=== PATIENT | male | born 1950 | race Caucasian/White ===

== ENCOUNTER 2023-09-15 08:01 | Outpatient (CLI) | payer MEDICARE, OTHER, SELFPAY ==
--- NOTE | ~2023-09-15 | XR_ITS ---
EXAMINATION: XR shoulder RT min 2V DATE: 09/15/2023 08:30 INDICATION: Right shoulder pain and inability to lift the right arm post fall TECHNIQUE: AP internally and externally rotated, AP oblique externally rotated and transscapular Y vi ews of the right shoulder were obtained. COMPARISON: None FINDINGS: Normal alignment. No fracture.Mild glenohumeral osteoarthritis with relatively preserved joint space but small marginal osteophytes about the glenoid. There is also mild acromioclavicular osteoarthriti s. Soft tissues are unremarkable. Visualized portion of the lungs are clear. IMPRESSION: Mild right glenohumeral and acromioclavicular osteoarthritis. No acute osseous abnormality. Reviewed, dictated and finalized at location A. ESSOR OF FINANCE
== END 2023-09-15 08:02 | disposition home or self-care (01) ==
PROVIDERS: PCP Family Medicine; Visit Provider Physician Assistant
DX: S49.91XA Unspecified injury of right shoulder and upper arm, initial encounter (principal); X58.XXXA Exposure to other specified factors, initial encounter
CPT/HCPCS: 73030

== ENCOUNTER 2024-04-11 14:57 | Outpatient (CLI) | payer MEDICARE, OTHER, SELFPAY ==
--- NOTE | ~2024-04-11 | US_ITS ---
EXAMINATION: US venous doppler [facility] DATE: 04/11/2024 15:57 INDICATION: Lower limb swelling. TECHNIQUE: Grayscale ultrasound images without and with compression and Doppler ultrasound images of the bilateral lower extremity veins were obtained. COMPARISON: None. FINDINGS: There is nonocclusive noncompressible thrombus in the left greater saphenous vein outflow as well as the profunda (deep) femoral vein. The visualized portions of left common femoral vein, femoral vein, popliteal vein, posterior tibial veins, peroneal veins, gastrocnemius vein and more distal mid greate r saphenous vein vein outflow are patent. Sluggish flow was seen in the left popliteal and gastrocnem ius veins on the cine grayscale Doppler imaging. The visualized portions of right common femoral vein, profunda femoral vein, femoral vein, popliteal vein, posterior tibial veins, peroneal veins, gastrocnemius vein and greater saphenous vein outflow a re patent. IMPRESSION: 1. Nonocclusive thrombosis of the left greater saphenous vein outflow end of the left profunda (deep ) femoral vein. Reviewed, dictated and finalized at location A. IMPRESSION: 1. Nonocclusive thrombosis of the left greater saphenous vein outflow end of t he left profunda (deep) femoral vein.
== END 2024-04-11 14:58 | disposition home or self-care (01) ==
LOC: ANHIMG 14:59
PROVIDERS: PCP Family Medicine; Visit Provider Physician Assistant
DX: R60.0 Localized edema (principal); I82.812 Embolism and thrombosis of superficial veins of left lower extremity
CPT/HCPCS: 93970

== ENCOUNTER 2024-05-21 11:26 | Emergency (ER) | payer MEDICARE, OTHER, SELFPAY ==
[2024-05-21 12:05] VITALS: BP 136/74; PULSE 98; RESP 16; TEMP 36.6; O2SAT 98
--- NOTE | 2024-05-21 12:11 | ED.EAR ---
HPI - Ear Problem General Chief complaint: Ear Stated complaint: Ear Pain Time Seen by Provider: 05/21/24 12:11 Source: patient Mode of arrival: ambulatory Limitations: no limitations History of Present Illness HPI Narrative: 74 yo M presents with c/o throbbing pain to L ear. Was seen at PCP office 4 days ago and L ear was clogged. Was irrigated but unable to remove drainage. thought was swimmers ear. Has been using cipro dex and ofloxacin drops. Pain worse today. Afebrile. All systems reviewed and negative except as noted above. Related Data Allergies Allergy/AdvReac Type Severity Reaction Status Date / Time No Known Allergies Allergy Mild Verified 05/18/24 07:26 Review of Systems Review of Systems: CONSTITUTIONAL: Denies fever, chills, or sweats. EYES: Denies visual changes, redness, or discharge. ENT: Denies rhinorrhea, congestion, sore throat. Reports left ear pain. CARDIOVASCULAR: Denies chest pain, palpitations, or edema. RESPIRATORY: Denies cough or dyspnea. GASTROINTESTINAL: Denies abdominal pain, nausea, vomiting, or diarrhea. GENITOURINARY: Denies dysuria or hematuria. SKIN: Denies rash or itching. MUSCULOSKELETAL: Denies back pain, joint pain, or myalgia. NEUROLOGIC: Denies headache, numbness, or weakness. PSYCHIATRIC: Denies anxiety or depression. All other systems reviewed are negative, except as documented in HPI. [facility] Past Medical History Medical History Age-related macular degeneration Pseudopapilledema of both optic discs Rash Skin lesion Wellness examination Family History Family History Father Hypertension Family history of cardiovascular disease Family history of lung cancer Mother Hypertension Cerebrovascular accident Sibling Family history of cardiovascular disease Social History Social History Social History: Smoking status: Never smoker Second hand tobacco smoke exposure: No Alcohol intake: current Alcohol use details: social Substance use: never Substance use type: does not use Do You Feel Safe in your Home?: Yes Lack of Transportation: No Lack of Food: Never True Current Housing: I Have Housing Concerned About Future Housing: No Difficulty Paying Gas/Electric Bills: No Difficulty Paying for Meds: No Currently Unemployed: YES Education: Don't Know Difficulty w/ Childcare or Family Care: No Living arrangements: with family Occupation/Education: retired Gender identity (if verbalized by the patient): Male Sexual Orientation (if Verbalized by the Patient): Straight or Heterosexual Comments At time of signature, agree with nursing past medical, surgical, social and family history. There is no relevant family history pertinent to the presenting complaint. Exam Narrative: GENERAL: This is a well-nourished, well-developed patient, in no apparent distress. HEAD: normocephalic, atraumatic. EYES: PERRL. Sclera clear/white. Vision is grossly intact. EARS: External ears normal, left ear canal is erythematous and swollen. Unable to evaluate left TM but due to drainage. Attempted to remove drainage with lighted curette but too painful for patient. Right TM and right ear canal normal., Hearing grossly intact. NOSE: External nose normal NECK: Neck supple, non-tender without lymphadenopathy, masses or thyromegaly. CARDIOVASCULAR: Regular rate and rhythm without murmurs, gallops, or rubs. RESPIRATORY: Clear to auscultation. Breath sounds equal bilaterally. No wheezes, rales, or rhonchi. SKIN: warm, Dry, intact with no suspicious lesions or rash, good texture and turgor. NEURO: awake, alert, and oriented to person, place and time. There were no obvious focal neurologic abnormalities. EXTREMITIES: No joint tenderness, effusion, or edema noted. Course Course Level of Care:
== END 2024-05-21 12:26 | disposition home or self-care (01) ==
PROVIDERS: Emergency Provider Nurse Practitioner Family; PCP Family Medicine
DX: H60.502 Unspecified acute noninfective otitis externa, left ear (principal); H35.30 Unspecified macular degeneration
CPT/HCPCS: 99213; G0463

== ENCOUNTER 2024-08-26 07:45 | Outpatient (CLI) | payer MEDICARE, OTHER, SELFPAY ==
--- NOTE | ~2024-08-26 | US_ITS ---
EXAMINATION: US venous doppler [facility] DATE: 08/26/2024 08:45 INDICATION: Acute embolism and thrombosis TECHNIQUE: Grayscale ultrasound images without and with compression and Doppler ultrasound images of the bilateral lower extremity veins were obtained. COMPARISON: 04/11/2024 FINDINGS: The visualized portions of right common femoral vein, profunda (deep) femoral vein, femoral vein, pop liteal vein, posterior tibial veins, peroneal veins, gastrocnemius vein and greater saphenous vein ou tflow are patent. The visualized portions of left common femoral vein, profunda femoral vein, femoral vein, popliteal v ein, posterior tibial veins, peroneal veins, gastrocnemius vein and greater saphenous vein outflow ar e now patent. IMPRESSION: 1. No deep venous thrombosis in either lower limb. Reviewed, dictated and finalized at location B. ISHING MANAGER
== END 2024-08-26 07:46 | disposition home or self-care (01) ==
PROVIDERS: PCP Family Medicine; Visit Provider Physician Assistant
DX: I82.402 Acute embolism and thrombosis of unspecified deep veins of left lower extremity (principal)
CPT/HCPCS: 93970

== ENCOUNTER 2025-02-02 04:42 | Day surgery (SDC) | payer MEDICARE, OTHER, SELFPAY ==
[2025-02-01 11:17] VITALS: BMI 32.5
[2025-02-02] VITALS (14 sets, daily range): BP systolic 114–145; BP diastolic 71–87; PULSE 53–66; RESP 13–20; TEMP 36.6; O2SAT 90–96; BMI 27.4
--- OUTSIDE RECORDS SUMMARY | 2025-02-02 04:44 | XMS_ITS | Encounter Summary ---
Author Organization [facility] Address [address] [place] [id number] Care Team Providers Care Recruiting Internship Name Role Phone Carlos Baumann MD Primary Care Provider [phone] Clem Curry MD Primary Care Provider Diaz Ramírez MD Unavailable Encounter Details Date Type Department Care Team (Late st Contact Info) Description 01/06/2017 Orders Only [facility] ProviderTaylor MD [address] [place] [id number] Social History Tobacco Use Types Packs/Day Years Used Date Smoking Tobacco: Never Alcohol Use Standard Drinks/Week Comments Yes 0 (1 standard drink = 0.6 oz pur e alcohol) Sex and Gender Information Value Date Recorded Sex Assigned at Not on file 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 Historical Provider [facility] D[facility] Final Result documented in this encounter Visit Diagnoses Not on filedocumented in this encounter Care Teams Recruiting Internship Relationship Specialty Start Date End Date Carlos Baumann MD PCP - General 11/27/16 09/28/18 Clem Curry MD [address] [facility] [address] [place] [address] PCP - General Family Medicine 09/29/18 Diaz Ramí[place] [address] [place] [id number] Consulting Physician Urology 02/02/24 documented as of this encounter
--- OUTSIDE RECORDS SUMMARY | 2025-02-02 04:44 | XMS_ITS | Clinical Summary ---
Author Organization [facility] Address [address] [facility] [place] [address] Care Team Providers Care Business Team Leader Name Role Phone Clem Curry MD Primary Care Provider [phone] [facility],non-owned Affiliates and Associated Physician Practices is amultiple site organization consisting of ambulatory clinics and hospital sitesin [place], [place], [place] and [place]. This disclosure is being madepursuant to the Care Everywhere program and may not contain all information available regarding this patient. Last updated 18.[facility] Allergies No known active allergies Medications * Be aware that medications may not be up to date on this document. Alwaysverify current medications with the patient. aspirin EC (ASPIRIN 81) 81 MG tablet Take 81 mg by mouth once daily 6 Active losartan-hydroCH LOROthiazide (HYZAAR) 100-25 MG tablet Take by mouth once daily 0 Active amLODIPine (NORVASC) 10 MG tablet Take 10 mg by mouth once daily 6 Active metoprolol succinate XL 24hr (TOPROL XL) 100 MG tablet Take 100 mg by mouth once daily 1 Active triamcinolone acetonide (KENALOG) 0.1 % creamIndications :Rash and other nonspecific skin eruption Apply to affected area on trunk and extremities BID prn for itch. 30 day supply. 454 g 11 1 Active Active Problems Problem Noted Date Diagnosed Date Actinic keratosis 04/21/2021 Other pruritus 01/26/2020 Xerosis cutis 01/26/2020 Rash and other nonspecific skin eruption 020 Asymptomatic varicose veins 03/01/2018 Bilateral lower extremity edema 03/01/2018 Immunizations Immunization Administration Dates Next Due Ivethedilma Izzy primary monoval ent 12+ yr 0.3mL Purple cap 10/02/2020 INFLUENZA VACCINE 06/27/2020,06/29/2018 INFLUENZA VACCINE, HIGH-DOSE , QUADR. (FLUZONE HIGH-DOSE QUADRIVALENT; 65Y+), 0.7 ML (HD-IIV4) 07/23/2016,07/04/2015 INFLUENZA VACCINE, QUADR. (F LUZONE; FLULAVAL; FLUARIX; AFLURIA QUADRIVALENT; 6MO+), 0.5 ML (IIV4) 07/14/2017 PNEUMOCOCCAL PPSV23 07/14/2017 Pneumococcal Pcv13 Conj 07/23/2016 ZOSTER VACCINE, LIVE 03/28/2014 Family History Medical History Relation Name Comments None Known Brother None Known Father None Known Maternal Aunt None Known Maternal Grandfather None Known Maternal Grandmother None Known Maternal Uncle None Known Mother None Known Other None Known Paternal Aunt None Known Paternal Grandfather None Known Paternal Grandmother None Known Paternal Uncle None Known Sister Asthma Neg Hx CVA Neg Hx Cancer - Breast Neg Hx Cancer - Other Neg Hx Cancer - Skin, Melanoma Neg Hx Cancer - Skin, Non Melanoma Neg Hx Eczema Neg Hx Hemophilia Neg Hx Psoriasis Neg Hx Relation Name Status Comments Brother Father Maternal Aunt Maternal Grandfather Maternal Grandmother Maternal Uncle Mother Other Paternal Aunt Paternal Grandfather Paternal Grandmother Paternal Uncle Sister Social History Tobacco Use Types Packs/Day Years Used Date Smoking Tobacco: Never Smokeless Tobacco: Never Alcohol Use Standard Drinks/Week Comments Not Currently 0 (1 standard drink = 0.6 oz pur e alcohol) Sex and Gender Information Value Date Recorded Sex Assigned at Not on file Legal Sex Male 11:23 AM CDT Gender Identity Not on file Sexual Orientation Not on file Plan of Treatment Health Maintenance Due Date Last Done Comments COLOGUARD (AGES 45-75) - COLON CA SCREENING 1950 COLON MONITORING 1950 COLONOSCOPY - COLON CA SCREENING 1950 CT COLONOGRAPHY - COLON CA SCREENING 1950 Colorectal Cancer Screening 1950 FIT - COLON CA SCREENING 1950 FLEX SIG - COLON CA SCREENING 1950 LIPID TESTING 1950 DTAP/TDAP/TD VACCINES (1 - Tdap) 1970 ZOSTER VACCINE (2 of 3) 05/23/2014 03/28/2014 COVID-19 VACCINE (2 - season) 2024 10/02/2020 DEPRESSION SCREENING 08/24/2024 INFLUENZA VACCINE (Season Ended) 2025 06/27/2020, 06/29/2018, 07/14/2017, Additional history exists Respiratory Syncytial Virus (RSV) Vaccine Pt: or over 60 yrs (1 - 1-dose 75+ series) 2026 PNEUMOCOCCAL VACCINE 50+ Completed 07/14/2017, 06/26 HEPATITIS C SCREENING Completed 11/08/2020 HEPATITIS B VACCINE Aged Out No longe r eligible based on patient's age to complete this topic HIB VACCINE Aged Out No longer eligi ble based on patient's age to complete this topic HPV VACCINE Aged Out No longer eligi ble based on patient's age to complete this topic MENINGOCOCCAL (Group B) VACCINE SHARED DECISION-MAKING Aged Out No longer eligible based on patient's age to complete this topic MENINGOCOCCAL GROUPS A/C/Y/W VACCINE Aged Out No longer eligible based on patient's age to complete this topic Procedures Procedure Name Priority Date/Time Associated Diagnosis Comments HEPATITIS C AB W/RFLX TO HCV RNA QN PCR Routine 11/08/2020 9:21 AM CDT Other pruritus from Last 3 Months or Most Recently Relevant to Health Maintenance Results * HEPATITIS C AB W/RFLX TO HCV RNA QN PCR (11/08/2020 9:21 AM CDT) Hepatitis C Antibody NON-REACTI VE NON-REACT [facility] Signal to Cut-Off 0.01 <1.00 [facility] Comment: HCV antibody was non-reactive. There is no laboratory evidence of HCV infection. In most cases, no further action is required. However, if recent HCV exposure is suspected, a test for HCV RNA (test code 66622) is suggested. For additional information please refer to http://education.Pocket Tales.Exhbit/faq/SBQ99z0 (This link is being provided for informational/ educational purposes only.) REPORT COMMENT: FASTING:YES Test Performed at: [employer] [facility] [place] [id number] [facility] [place] [id number] ANATOLIY BRAGG DO,MPH Blood BLOOD SPECIMEN / Unknown 11/08/2020 9:21 AM CDT 11/08/2020 9:26 AM CDT Josh Mckeon MD LAB - CHEMISTRY ORDERABLES F inal Result [facility] [id number] [place] [address] from Last 3 Months or Most Recently Relevant to Health Maintenance Insurance MEDICARE T Care Teams Business Team Leader Relationship Specialty Start Date End Date Clem Curry MD [address] [place] [address] PCP - General 01/18/20
--- OUTSIDE RECORDS SUMMARY | 2025-02-02 04:44 | XMS_ITS | Referral Summary ---
Author Organization [facility] [address] [place] [address] [facility] [address] [place] [address] Care Team Providers Care Stevedoring Supervisor Name Role Phone Clem Curry MD Primary Care Provider Diaz Ramírez MD Unavailable [phone] Encounters Date Type Department Care Team Description 01/24/2025 Results Follow-Up [facility] Medical [facility] Cardiology [address] [place] [address] [address] [place] [address] Jillian Barreto MD NM MPI SPECT (Rest and/or Stress) Multiple Studies 01/23/2025 10:15 AM CDT Ancillary Procedure [facility] Cardiology [address] [place] [address] [address] [place] [address] High coronary artery calcium score; Family history of early CAD; Agatston coronary artery calcium score greater than 400; Coronary artery calcification seen on CT scan; Family history of premature CAD 01/19/2025 11:49 AM CDT - 01/19/2025 11:59 PM CDT Hospital Encounter [address] [id number] Bilateral lower extremity edema Discharge Disposition: Discharge to home or self care 01/19/2025 12:00 PM CDT Lab [facility] Medical Group Outpatient Lab at [address] [address] 01/13/2025 10:42 AM CDT - 01/13/2025 11:59 PM CDT Hospital Encounter [facility] Imaging [address] [address] [address] Non-rheumatic aortic stenosis; Essential hypertension, benign; Family history of premature CAD Discharge Disposition: Discharge to home or self care 01/12/2025 Telephone [facility] Cardiology [address] [place] [phone] Jillian Barreto MD 01/11/2025 Results Follow-Up [facility] Medical Group Cardiology at [address] [place] [phone] Jillian Barreto MD US Vein Duplex Lower Extremity Bilateral Complete, CT Coronary Calcium Scoring 01/11/2025 Telephone [facility] Cardiology [address] [place] [phone] Jillian Barreto MD 01/11/2025 8:00 AM CDT Ancillary Procedure [facility] Vascular and Vein Surgery at [address] [place] [phone] Bilateral lower extremity edema 01/10/2025 10:30 AM CDT Office Visit [facility] Medical Group Cardiology at [address] [place] [phone] Jillian Barreto MD Bilateral lower extremity edema (Primary Dx); Non-rheumatic aortic stenosis; Pulmonary hypertension (HCC); Essential hypertension, benign; Family history of premature CAD from Last 3 Months Allergies No known active allergies Medications metoprolol XL (TOPROL-XL) 100 mg 24 hr tablet Take 1 tablet (100 mg total) by mouth every morning Active losartan-hydro chlorothiazide (HYZAAR) 100-25 mg per tablet Take 1 tablet by mouth every morning Active amLODIPine (NORVASC) 10 mg tablet Take 1 tablet (10 mg total) by mouth every morning Active furosemide (LASIX) 20 mg tabletIndicati ons:Bilateral lower extremity edema Take 1 tablet (20 mg total) by mouth daily 30 tablet 11 01/11/20 25 026 Active rivaroxaban (XARELTO) 10 mg tabletIndicati ons:DVT Take 1 tablet (10 mg total) by mouth daily 90 tablet 3 01/18/20 25 026 Active Xarelto 20 mg tablet Take 1 tablet (20 mg total) by mouth nightly 06/10/20 24 025 Discontinued(Th erapy completed) rivaroxaban (XARELTO) 10 mg tabletIndicati ons:DVT Take 1 tablet (10 mg total) by mouth daily 90 tablet 3 01/13/20 25 025 Discontinued rivaroxaban (XARELTO) 10 mg tabletIndicati ons:DVT Take 1 tablet (10 mg total) by mouth daily 90 tablet 3 01/18/20 25 025 Discontinued Active Problems Problem Noted Date Diagnosed Date Family history of premature CAD 01/10/2025 Prostate cancer 01/05/2024 Lipid screening 06/20/2022 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 AMD (age-related macular degeneration), bilatera l 08/29/2019 Obesity (BMI 30.0-34.9) 09/29/2018 Pulmonary hypertension 09/29/2018 Asymptomatic varicose veins 03/01/2018 Bilateral lower extremity edema 03/01/2018 Non-rheumatic aortic stenosis 02/16/2017 Essential hypertension, benign 02/16/2017 Overweight(278.02) 02/16/2017 Social History Tobacco Use Types Packs/Day Years Used Date Smoking Tobacco: Never Smokeless Tobacco: Never Tobacco Cessation:Counseling Given: Not Answered Alcohol Use Standard Drinks/Week Comments Yes 2 (1 standard drink = 0.6 oz pur e alcohol) AUDIT-C Answer Date Recorded Q1: How often do you have a drink containing alc ohol? Monthly or less 04/12/2024 Q2: How many drinks containi ng alcohol do you have on a typical day when you are drinking? 1 or 2 04/12/2024 Q3: How often do you have si x or more drinks on one occasion? Monthly 04/12/2024 Personal Safety Answer Date Recorded Have you ever been in or are you currently in a harmful physical or emotional relationship or is someone making you feel afraid or unsafe? 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 Gender Identity Not on file Sexual Orientation Not on file Last Filed Vital Signs Vital Sign Reading Time Taken Comments Blood Pressure 132/70 01/10/2025 11:07 AM CDT Pulse 60 01/10/2025 10:26 AM CDT Temperature 36.5 C (97.7 F) 02/02/2024 7:49 AM CDT Respiratory Rate 18 04/12/2024 9:35 AM CDT Oxygen Saturation 92% 01/10/2025 10:26 AM CDT Inhaled Oxygen Concentration - - Weight 97.1 kg (214 lb) 01/10/2025 10:26 AM CDT Height 172.7 cm (5' 8) 01/10/2025 10:26 AM CDT Body Mass Index 32.54 01/10/2025 10:26 AM CDT Plan of Treatment Not on file Procedures Procedure Name Priority Date/Time Associated Diagnosis Comments NM MPI SPECT (REST AND/OR STRESS) MULTIPLE STUDIES Schedule Routine, Read Routine (OP Routine) 01/23/2025 11:35 AM CDT High coronary artery calcium score Family history of early CAD Agatston coronary artery calcium score greater than 400 Coronary artery calcification seen on CT scan Family history of premature CAD EGFR Routine 01/19/2025 9:23 PM CDT Bilateral lower extremity edema BASIC METABOLIC PANEL Routine 01/19/2025 9:23 PM CDT Bilateral lower extremity edema CT HEART CALCIUM Schedule Routine, Read Routine (OP Routine) 01/13/2025 10:51 AM CDT Non-rheumatic aortic stenosis Essential hypertension, benign Family history of premature CAD US VEIN DUPLEX LOWER EXTREMITY BILATERAL COMPLETE Schedule Routine, Read Routine (OP Routine) 01/11/2025 8:24 AM CDT Bilateral lower extremity edema from Last 3 Months Results * NM MPI SPECT (Rest and/or Stress) Multiple Studies (01/23/2025 11:35 AM CDT) Anatomical Region Laterality Modality Body N/A Nuclear Medicine 01/23/2025 8:27 AM CDT Narrative 01/23/2025 2:15 PM CDT [facility] Cardiology [address], [place] [address] [address] [facility] [address], [place] [address] P:[phone] P:[phone] MPI Imaging Report Patient Name: CHANG SAUCEDO L : 1950 Study Date: 01/23/2025 8:27:44 AM Gender: M Tech: JERI [facility] Location: [facility] Provider: JILLIAN BARRETO Height(Cm): 172.7 BSA: Weight(Kg): 97.1 BMI: 32.56 Order Provider: JILLIAN BARRETO PHYSICIAN: Referring Physician: Dr. Curry. HCG Physician: Gwyn Barreto M.D. Interpreting Physician: Gwyn Barreto M.D. Stress Supervision: Gwyn Barreto M.D. PROCEDURES: Exercise SPECT Report: Myocardial perfusion imaging with Tc99m Sestamibi SPECT at rest and stress post exercise using the Fritz protocol. INDICATIONS: Hypertension, R93.1 Abnormal findings on diagnostic imaging of heart and coronary circulation, Z82.49 Family history of ischemic heart disease and other diseases of the circulatory system, R93.1 Abnormal findings on diagnostic imaging of heart and coronary circulation, I25.10 Atherosclerotic heart disease of [place] coronary artery without angina pectoris, and Z82.49 Family history of ischemic heart disease and other diseases of the circulatory system. FINDINGS: Procedure: One day rest/stress protocol was used. Tc99m Sestamibi injected IV at rest was 12.7 millicuries 37.7 millicuries of Tc99m Sestamibi injected IV at peak stress Baseline heart rate was 60 BPM Peak heart rate was 130 BPM Max projected heart rate was 147 Percent predicted max heart rate achieved was 88 % Exercise Time 9:00 min Baseline blood pressure was 142/70 mmHg Peak blood pressure 174/84 mmHg Termination: Fatigue. Resting ECG: Sinus bradycardia. Cannot r/o anterior infarct - age uncertain. PVC. Arrhythmia: Frequent PVCs and one V couplet. Occasional APCs. Perfusion Findings: Abnormal perfusion imaging - see below. Technical quality of study is excellent. Motion correction was performed. Prone imaging was not performed. Left ventricle cavity size at rest is normal. Left ventricle cavity size with stress is unchanged. A TID of 0.85 was automatically calculated. defect 1: Size is medium. Severity is mild to moderate in intensity. Location of defect is in the mid anterolateral segment, apical anterior segment and apical lateral segment. Reversibility is partial. Type of defect is infarction with jovita-infarct or superimposed ischemia. LV Function: Global left ventricular function is normal. Left Ventricular Ejection Fraction is 65 %. CONCLUSIONS: Myocardial perfusion imaging is abnormal. Size is medium. Severity is mild to moderate in intensity. Location of defect is in the mid anterolateral segment, apical anterior segment and apical lateral segment. Reversibility is partial. Type of defect is infarction with jovita-infarct or superimposed ischemia. Global left ventricular function is normal. Left Ventricular Ejection Fraction is 65 %. Negative EKG portion of stress test. Motion artifact noted which may be the cause of the perfusion defect. Electronically Signed By: Jillian Barreto MD 01/23/2025 1:01:36 PM CDT Electronically Signed By: Jillian Barreto MD 01/23/2025 1:01:36 PM CDT Procedure Note Jillian Barreto MD - 01/23/2025 [facility] Cardiology [address] [facility] [address] [address] [address] [facility] [address] [address] P:[phone] P:[phone] MPI Imaging Report Patient Name: CHANG SAUCEDO L : 1950 Study Date: 01/23/2025 8:27:44 AM Gender: M Tech: [facility] Location: [place] Ref Provider: JILLIAN BARRETO Height(Cm): 172.7 BSA: Weight(Kg): 97.1 BMI: 32.56 Order Provider: JILLIAN BARRETO PHYSICIAN: Referring Physician: Dr. Curry. HCG Physician: Gwyn Barreto M.D. Interpreting Physician: Gwyn Barreto M.D. Stress Supervision: Gwyn Barreto M.D. PROCEDURES: Exercise SPECT Report: Myocardial perfusion imaging with Tc99m Sestamibi SPECT at rest and stresspost exercise using the Fritz protocol. INDICATIONS: Hypertension, R93.1 Abnormal findings on diagnostic imaging of heart andcoronary circulation, Z82.49 Family history of ischemic heart disease and otherdiseases of the circulatory system, R93.1 Abnormal findings on diagnostic imaging of heartand coronary circulation, I25.10 Atherosclerotic heart disease of [place] coronaryartery without angina pectoris, and Z82.49 Family history of ischemic heart disease andother diseases of the circulatory system. FINDINGS: Procedure: One day rest/stress protocol was used. Tc99m Sestamibi injected IV at rest was 12.7 millicuries 37.7 millicuries of Tc99m Sestamibi injected IV at peak stress Baseline heart rate was 60 BPM Peak heart rate was 130 BPM Max projected heart rate was 147 Percent predicted max heart rate achieved was 88 % Exercise Time 9:00 min Baseline blood pressure was 142/70 mmHg Peak blood pressure 174/84 mmHg Termination: Fatigue. Resting ECG: Sinus bradycardia. Cannot r/o anterior infarct - age uncertain. PVC. Arrhythmia: Frequent PVCs and one V couplet. Occasional APCs. Perfusion Findings: Abnormal perfusion imaging - see below. Technical quality of study isexcellent. Motion correction was performed. Prone imaging was not performed. Left ventriclecavity size at rest is normal. Left ventricle cavity size with stress is unchanged. A TIDof 0.85 was automatically calculated. defect 1: Size is medium. Severity is mild to moderate in intensity. Location ofdefect is in the mid anterolateral segment, apical anterior segment and apical lateralsegment. Reversibility is partial. Type of defect is infarction with jovita-infarctor superimposed ischemia. LV Function: Global left ventricular function is normal. Left Ventricular EjectionFraction is 65 %. CONCLUSIONS: Myocardial perfusion imaging is abnormal. Size is medium. Severity is mild to moderate in intensity. Location ofdefect is in the mid anterolateral segment, apical anterior segment and apical lateralsegment. Reversibility is partial. Type of defect is infarction with jovita-infarctor superimposed ischemia. Global left ventricular function is normal. Left Ventricular EjectionFraction is 65 %. Negative EKG portion of stress test. Motion artifact noted which may be the cause of the perfusion defect. Electronically Signed By: Jillian Barreto MD 01/23/2025 1:01:36 PM CDT Electronically Signed By: Jillian Barreto MD 01/23/2025 1:01:36 PM CDT us Jillian Barreto MD IMG NM PROCEDURES Final R esult * eGFR (01/19/2025 9:23 PM CDT) eGFR >90 >=60 mL/min/1. 73 m2 Comment: Interpretive Data Reference Interval Normal >/= 90 mL/min/1.73m2 Mildly decreased* 60 - 89 mL/min/1.73m2 Mildly to moderately decreased 45 - 59 mL/min/1.73m2 Moderately to severely decreased 30 - 44 mL/min/1.73m2 Severely decreased 15 - 29 mL/min/1.73m2 Kidney Failure < 15 mL/min/1.73m2 *Relative to young adult level Estimated glomerular filtration rate is determined by the 2020 CKD-EPI equation recommended by the National Kidney [employer] (A Unifying Approach to GFR Estimation: Recommendations of the NKF-ASK Task Force on Reassessing the Inclusion of Race in Diagnosing Kidney Disease, JASN 202). The CKD-EPI equation should not be used for patients with unstable renal function and has not been validated in children and those over 70. Current interpretive data was last reviewed 2021. Blood 01/19/2025 9:23 PM CDT 01/19/2025 9:30 PM CDT Jillian Barreto MD LAB BLOOD ORDERABLES Sera l Result [facility] [address] [address] [place] [address] * Basic metabolic panel (01/19/2025 9:23 PM CDT) Sodium 136 135 - 145 mmol/L Potassium, pl 3.7 3.3 - 4.9 mmol/L [facility] Chloride 99 97 - 110 mmol/L [facility] CH CO2 24 22 - 32 mmol/L [facility] CH Anion gap 13 2 - 15 mmol/L [facility] CH BUN 17 6 - 25 mg/dL [facility] Creatinine 0.84 0.80 - 1.30 mg/dL [facility] Glucose 134 70 - 199 mg/dL [facility] Comment: Interpretive Data Fasting glucose >/= 126 mg/dl is diagnostic for diabetes. Fasting is defined as no caloric intake for at least 8 hours. Fasting glucose between 100 mg/dl to 125 mg/dl is diagnostic of prediabetes. In a patient with classic symptoms of hyperglycemia or hyperglycemic crisis, a random glucose >/= 200 mg/dl is diagnostic for diabetes. In the absence of unequivocal hyperglycemia, results should be confirmed by repeat testing. The classification and Diagnosis of Diabetes Diabetes Care 2021; 46: S19-S40. Current interpretive data was last revised 2022. Calcium 9.2 8.5 - 10.3 mg/dL [facility] Blood 01/19/2025 9:23 PM CDT 01/19/2025 9:25 PM CDT Jillian Barreto MD LAB BLOOD ORDERABLES Sera guajardo Result [facility] [address] [address] Department [place] [address] * CT Coronary Calcium Scoring (01/13/2025 10:51 AM CDT) Anatomical Region Laterality Modality Chest Computed Tomogra phy 01/13/2025 2:46 PM CDT Impressions 01/13/2025 4:17 PM CDT Calcium score of 3668.1. Dictated by: Anupama Pelletier MD, PhD. The radiology attending physician has personally reviewed this study, and had reviewed and/or edited this written report and agrees with it. Electronically signed by: Marie Zhang M.D. Narrative 01/13/2025 4:17 PM CDT EXAMINATION: CT OF THE HEART W/O CONTRAST - CORONARY CALCIUM TECHNIQUE: High-resolution, cardiac-gated Computed Tomography of the heart with attention devoted to the coronary arteries was performed with a 128 slice MDCT Scanner. Coronary calcification was analyzed using a [employer] 3D workstation with calcified plaque analysis software. RESULTS: Interpretation of coronary calcification is provided below: Your patient's Agatston Coronary Calcium score is 3668.1. This total Coronary Calcium score of 3668.1 places this patient above the 90th percentile for an apparently healthy person of the same age and gender. In general, the lower the percentile rank, the lower the cardiac risk. This percentile rank assumes the absence of symptoms. Incidental Findings: Linear atelectasis in the right lower lobe. Bibasilar atelectasis. 3 mm groundglass jovita-fissural nodule in the left lung (series 3, image 33), likely a lymph node. Degenerative changes spine. The heart size is on the upper limits of normal in size. Aortic valve calcifications. The Calcium Score should be interpreted in the context of several factors: Clinical decision-making requires the Calcium Score to be weighed along with other factors, i.e. the patient's age, gender, symptoms and risk factors. Normal score for any age is ideally zero. The Calcium Score has greater significance when it is above the 75th percentile of age and sex group. A score of zero indicates no coronary artery calcification and this implies the absence of significant angiographic coronary narrowing in 99% of cases. It does not absolutely rule out the presence of soft non-calcified plaque, especially in younger patients and those who smoke heavily. Procedure Note Mraie Zhang MD - 01/13/2025 EXAMINATION: CT OF THE HEART W/O CONTRAST - CORONARY CALCIUM TECHNIQUE: High-resolution, cardiac-gated Computed Tomography of the heart with attention devoted to the coronary arteries was performed with a 128 slice MDCT Scanner. Coronary calcification was analyzed using a [employer] 3D workstation with calcified plaque analysis software. RESULTS: Interpretation of coronary calcification is provided below: Your patient's Agatston Coronary Calcium score is 3668.1. This total Coronary Calcium score of 3668.1 places this patient above the 90th percentile for an apparently healthy person of the same age and gender. In general, the lower the percentile rank, the lower the cardiac risk. This percentile rank assumes the absence of symptoms. Incidental Findings: Linear atelectasis in the right lower lobe. Bibasilar atelectasis. 3 mm groundglass jovita-fissural nodule in the left lung (series 3, image 33), likely a lymph node. Degenerative changes spine. The heart size is on the upper limits of normal in size. Aortic valve calcifications. The Calcium Score should be interpreted in the context of several factors: Clinical decision-making requires the Calcium Score to be weighed along with other factors, i.e. the patient's age, gender, symptoms and risk factors. Normal score for any age is ideally zero. The Calcium Score has greater significance when it is above the 75th percentile of age and sex group. A score of zero indicates no coronary artery calcification and this implies the absence of significant angiographic coronary narrowing in 99% of cases. It does not absolutely rule out the presence of soft non-calcified plaque, especially in younger patients and those who smoke heavily. IMPRESSION: Calcium score of 3668.1. Dictated by: Anupama Pelletier MD, PhD. The radiology attending physician has personally reviewed this study, and had reviewed and/or edited this written report and agrees with it. Electronically signed by: Marie Zhang M.D. us Jillian Barreto MD IMG CT PROCEDURES Final R esult * US Vein Duplex Lower Extremity Bilateral Complete (01/11/2025 8:24 AM CDT) Anatomical Region Laterality Modality Vascular Bilateral Ultrasound 01/11/2025 7:50 AM CDT Narrative 01/11/2025 10:28 AM CDT Vascular & Vein Surgery [address] [place] [address]. [place] [address] Lower Extremity Venous Report Patient Name: CHANG SAUCEDO L : 1950 (74y 7m) Gender: M Study Date: 01/11/2025 07:50:22 AM Box Repairer: JAYDE Location: [facility] Order Provider: JILLIAN BARRETO Quality: Adequate Ref Provider: JILLIAN BARRETO PROCEDURES: Vascular Report: A non-invasive vascular imaging study of the bilateral lower extremity veins was performed using B-mode ultrasound, color flow, and spectral Doppler. INDICATIONS: L>R LE edema. HISTORY: HTN. ?DVT vs SVT LLE. Prostate CA. COMPARISONS: No previous exams. FINDINGS: Right: Positive for chronic nonocclusive deep vein thrombosis in the right lower extremity. Deep veins involved include the right gastrocnemius vein. Normal compressibility and color filling, spontaneous and phasic flow, and response to distal augmentation is demonstrated in the right common femoral vein, saphenofemoral junction, proximal femoral vein, mid femoral vein, distal femoral vein, profunda vein, popliteal vein, posterior tibial veins, peroneal veins and soleal veins. Left: Negative for deep and superficial vein thrombosis in the left lower extremity. Normal compressibility and color filling, spontaneous and phasic flow, and response to distal augmentation is demonstrated in the left common femoral vein, saphenofemoral junction, proximal femoral vein, mid femoral vein, distal femoral vein, profunda vein, popliteal vein, posterior tibial veins, peroneal veins, gastrocnemius veins and soleal veins. Left popliteal vein demonstrates reflux of 2.65 seconds. CONCLUSIONS: 1. Positive for chronic nonocclusive deep vein thrombosis in the right lower extremity. Deep veins involved include the right gastrocnemius vein. 2. Negative for deep and superficial vein thrombosis in the left lower extremity. ATTESTATION: I have reviewed and interpreted the pertinent images and measurements of this study. I attest to the conclusions in the final report that is provided above. Electronically Signed By: Praful Smith MD 01/11/2025 9:59:10 AM CDT Procedure Note Praful Smith MD - 01/11/2025 Vascular & Vein Surgery [facility] [place] [address] Lower Extremity Venous Report Patient Name: CHANG SAUCEDO L : 1950 (74y 7m) Gender: M Study Date: 01/11/2025 07:50:22 AM Box Repairer: JAYDE Location: [facility] Order Provider: JILLIAN BARRETO Quality: Adequate Ref Provider: JILLIAN BARRETO PROCEDURES: Vascular Report: A non-invasive vascular imaging study of the bilaterallower extremity veins was performed using B-mode ultrasound, color flow, and spectralDoppler. INDICATIONS: L>R LE edema. HISTORY: HTN. ?DVT vs SVT LLE. Prostate CA. COMPARISONS: No previous exams. FINDINGS: Right: Positive for chronic nonocclusive deep vein thrombosis in the rightlower extremity. Deep veins involved include the right gastrocnemius vein.Normal compressibility and color filling, spontaneous and phasic flow, andresponse to distal augmentation is demonstrated in the right common femoral vein,saphenofemoral junction, proximal femoral vein, mid femoral vein, distal femoral vein, profundavein, popliteal vein, posterior tibial veins, peroneal veins and soleal veins. Left: Negative for deep and superficial vein thrombosis in the left lowerextremity. Normal compressibility and color filling, spontaneous and phasic flow, andresponse to distal augmentation is demonstrated in the left common femoral vein,saphenofemoral junction, proximal femoral vein, mid femoral vein, distal femoral vein,profunda vein, popliteal vein, posterior tibial veins, peroneal veins, gastrocnemiusveins and soleal veins. Left popliteal vein demonstrates reflux of 2.65 seconds. CONCLUSIONS: 1. Positive for chronic nonocclusive deep vein thrombosis in the rightlower extremity. Deep veins involved include the right gastrocnemius vein. 2. Negative for deep and superficial vein thrombosis in the left lowerextremity. ATTESTATION: I have reviewed and interpreted the pertinent images and measurements ofthis study. I attest to the conclusions in the final report that is provided above. 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
--- OUTSIDE RECORDS SUMMARY | 2025-02-02 04:44 | XMS_ITS | Clinical Summary ---
Author Organization [facility] [address] Address [address] [place] [address] Care Team Providers Care Corporate Development Associate Name Role Phone Clem Curry MD Primary Care Provider Diaz Ramírez MD Unavailable [phone] Allergies No known active allergies Medications metoprolol [...] total) by mouth nightly 06/10/20 24 025 Discontinued( erapy completed) rivaroxaban (XARELTO) 10 mg tabletIndicati [...] 02/16/2017 Essential hypertension, benign 02/16/2017 Overweight(278.02) 02/16/2017 Encounters Date Type Department Care Team Description 01/24/2025 Results Follow-Up [facility] Cardiology [facility] State [facility] [address] [place] [phone] Jillian Barreto MD [place] MPI SPECT (Rest and/or Stress) Multiple Studies 01/23/2025 10:15 AM CDT Ancillary Procedure [facility] Cardiology [facility] State [facility] [address] [place] [phone] High coronary artery calcium score; Family history of early CAD; [place] coronary artery calcium score greater than 400; Coronary artery calcification seen on CT scan; Family history of premature CAD 01/19/2025 12:00 PM CDT Lab [facility] Outpatient Lab at [address] [phone] 01/19/2025 11:49 AM CDT - 01/19/2025 11:59 PM CDT Hospital Encounter [facility] [address] [place] [address] Bilateral lower extremity edema Discharge Disposition: Discharge to home or self care 01/13/2025 10:42 AM CDT - 01/13/2025 11:59 PM CDT Hospital Encounter [facility] [address] [place] [address] Non-rheumatic aortic stenosis; Essential hypertension, benign; Family history of premature CAD Discharge Disposition: Discharge to home or self care 01/12/2025 Telephone [facility] Cardiology [address] [place] [address] Jillian Barreto MD 01/11/2025 8:00 AM CDT Ancillary Procedure [facility] Vascular and Vein Surgery at [address] [place] [address] Bilateral lower extremity edema 01/11/2025 Results Follow-Up [facility] Cardiology at [address] [place] [phone] Jillian Barreto MD US Vein Duplex Lower Extremity Bilateral Complete, CT Coronary Calcium Scoring 01/11/2025 Telephone [facility] Cardiology [address] [facility] [address] [place] [address] Jillian Barreto MD 01/10/2025 10:30 AM CDT Office Visit [facility] Cardiology at [address] [place] [address] Jillian Barreto MD Bilateral lower extremity edema (Primary Dx); Non-rheumatic aortic stenosis; Pulmonary hypertension (HCC); Essential hypertension, benign; Family history of premature CAD from Last 3 Months Surgical History Surgery Date Site/Laterality Comments CARPAL TUNNEL RELEASE Bilateral PROSTATE SURGERY 02/01/2024 Medical History Medical History Date Comments Hypertension Aortic stenosis BPH (benign prostatic hyperplasia) Skin cancer Obesity BMI 33 Prostate cancer (HCC) Pulmonary HTN (HCC) Family History Medical History Relation Name Comments Heart attack Brother 2 Tony Saucedo Other Brother 2 Tony Saucedo Bypass x3 an d Stents; Heart attack Daughter Namrata Saucedo Cancer Father Moustapha Saucedo Heart attack Father Moustapha Saucedo Myocardial infarction; Memory loss Father Moustapha Saucedo Heart attack Mother Yane Saucedo Myocardial infarction; Kidney disease Mother Yane Saucedo Stroke Mother Yane Saucedo Relation Name Status Comments Brother 1 Alive Brother 2 Tony Saucedo Daughter Namrata Saucedo Alive Father Moustapha Saucedo Mother Yane Saucedo Social History Tobacco Use Types Packs/Day Years [...] on file 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 Gender Identity Not on file Sexual Orientation Not on file Obstetrics History Last Filed Vital Signs Vital Sign Reading [...] 01/10/2025 10:26 AM CDT Plan of Treatment Health Maintenance Due Date Last Done Comments Colon Cancer Screening-Colonoscopy 1950 Depression Screening 1950 Hepatitis C Screening 1950 DTaP/Tdap/Td Vaccine (1 - Tdap) 1962 Hepatitis B Screening 1969 Zoster Vaccine (2 of 3) 05/23/2014 03/28/2014 Well Visit 65+ 2016 Fall Risk Assessment 02/01/2025 02/02/2024 Influenza Vaccine (Season Ended) 2025 06/27/2020, 06/29/2018, 07/14/2017, Additional history exists Pneumococcal vaccine 65+ Completed 07/14/2017, 06/26 Procedures Procedure Name Priority Date/Time Associated Diagnosis [...] AM CDT Narrative 01/23/2025 2:15 PM CDT [facility] Cardiology [address] [facility] [address] [id number] [address] [facility] [address], [place] [address] P:[phone] P:[phone] MPI Imaging Report Patient Name: CHANG SAUCEDO L : 1950 Study Date: 01/23/2025 8:27:44 AM Gender: M Tech: HALIMA WILCOX Location: [facility] Provider: JILLIAN BARRETO Height(Cm): 172.7 BSA: Weight(Kg): [...] coronary circulation, I25.10 Atherosclerotic heart disease of [place] coronary artery without angina pectoris, and Z82.49 [...] Procedure Note Jillian Barreto MD - 01/23/2025 [facility] Cardiology [address] [facility] [address] [address] [address] [facility] [address], [place] [address] P:[phone] P:[phone] MPI Imaging Report Patient Name: CHANG SAUCEDO L : 1950 Study Date: 01/23/2025 8:27:44 AM Gender: M [facility] Location: [facility] Provider: JILLIAN BARRETO Height(Cm): 172.7 BSA: Weight(Kg): [...] coronary circulation, I25.10 Atherosclerotic heart disease of [place] coronaryartery without angina pectoris, and Z82.49 Family [...] Jillian Barreto MD 01/23/2025 1:01:36 PM CDT Jillian Barreto MD IMG NM PROCEDURES Final [...] of Race in Diagnosing Kidney Disease, JASN 2020). The CKD-EPI equation should not be used for patients with unstable renal function and has not been validated in children and those over 70. Current interpretive data was last reviewed 2021. Blood 01/19/2025 9:23 PM CDT 01/19/2025 9:30 PM CDT Jillian Barreto MD LAB BLOOD ORDERABLES Sera l Result [facility] [address] Department [place] [address] * Basic metabolic panel (01/19/2025 9:23 PM CDT) Sodium 136 135 - 145 mmol/L Potassium, pl 3.7 3.3 - 4.9 mmol/L [facility] Chloride 99 97 - 110 mmol/L [facility] CO2 24 22 - 32 mmol/L [facility] Anion gap 13 2 - 15 mmol/L [facility] BUN 17 6 - 25 mg/dL [facility] Creatinine 0.84 0.80 - 1.30 mg/dL [facility] Glucose 134 70 - 199 mg/dL [facility] Comment: Interpretive Data Fasting glucose >/= [...] classification and Diagnosis of Diabetes Diabetes Care 202; 46: S19-S40. Current interpretive data was last revised 2022. Calcium 9.2 8.5 - 10.3 mg/dL [facility] Blood 01/19/2025 9:23 PM CDT 01/19/2025 9:25 PM CDT Jillian Barreto MD LAB BLOOD ORDERABLES Sera guajardo Result [facility] [address] Department [place] [address] * CT Coronary Calcium Scoring (01/13/2025 10:51 [...] Scanner. Coronary calcification was analyzed using a Yola 3D workstation with calcified plaque analysis software. [...] and those who smoke heavily. Procedure Note Marie Zhang MD - 01/13/2025 EXAMINATION: CT OF THE HEART W/O CONTRAST - CORONARY CALCIUM TECHNIQUE: High-resolution, cardiac-gated Computed Tomography of the heart with attention devoted to the coronary arteries was performed with a 128 slice MDCT Scanner. Coronary calcification was analyzed using a Yola 3D workstation with calcified plaque analysis software. [...] 10:28 AM CDT Vascular & Vein Surgery [address] [place] [address] Lower Extremity Venous Report Patient Name: CHANG SAUCEDO L : 1950 (74y 7m) Gender: M Study Date: 01/11/2025 07:50:22 AM Hide Stretcher Hand: JAYDE Location: [facility] Order Provider: JILLIAN BARRETO [...] MD - 01/11/2025 Vascular & Vein Surgery [address] [place] [address] Lower Extremity Venous Report Patient Name: CHANG SAUCEDO L : 1950 (74y 7m) Gender: M Study Date: 01/11/2025 07:50:22 AM Hide Stretcher Hand: JAYDE Location: [facility] Order Provider: JILLIAN BARRETO [...] 9:59:10 AM CDT us Jillian Barreto MD IM US PROCEDURES Final R esult from Last 3 Months Insurance [facility]ICARE [facility] MEDICARE [place] MEDICARE [place] [facility] [place] Advance Directives For more information, please contact: [phone] Documents on File Type Date Recorded Patient Utilization Review Specialist Expl anation Power of Forensic Computer Examiner 02/01/2024 10:38 AM * Full Code (Latest Code Status on File) Date Activated Date Inactivated Comments 02/01/2024 8:05 PM 02/02/2024 7:31 PM Care Teams Corporate Development Associate Relationship Specialty Start Date End Date Clem Curry MD [address] [address] PCP - General Family Medicine 09/29/18 Diaz [place] [address] [place] [id number] Consulting Physician Urology 02/02/24
[2025-02-02 08:38] LABS: Basophils Absolute Auto 0.1 K/mm3 (0.0-0.1); Basophils Percent Auto 0.9 % (0.2-1.2); Eosinophils Absolute Auto 0.2 K/mm3 (0-0.3); Eosinophils Percent Auto 2.7 % (0-4.4); Hemoglobin 16.2 g/dL (14.0-18.0); Immature Granulocyte Absolute 0.09 K/mm3 (0.00-0.031); Immature Granulocyte Percent A 1.2 % (0-0.5); Lymphocytes Percent Auto 13.6 % (18.3-44.2); Mean Corpuscular HGB Conc 35.2 g/dl (32-36); Mean Corpuscular Hemoglobin 32.7 pg (26-34); Mean Corpuscular Volume 92.7 fl (80-100); Mean Platelet Volume 9.2 fl (7.4-10.4); Monocytes Percent Auto 13.3 % (2.6-8.5); Neutrophils Percent Auto 68.3 % (45.5-73.1); Platelet Count Result 217 k/mm3 (150-375); Red Blood Count 4.96 M/mm3 (4.6-6.20); Red Cell Distribution Width 12.3 % (11.5-14.5); White Blood Count 7.4 K/mm3 (4.5-10.0)
--- NOTE | 2025-02-02 08:41 | WPDHPUPDATE1 ---
History and Physical Update Update Date/Time: 02/02/25 08:41 History and Physical has been reviewed, including an updated exam of the patient. There are NO changes in the patient's condition. Risks, benefits, and alternatives have been discussed and questions answered. Patient agrees to proceed with procedure.
--- NOTE | 2025-02-02 08:42 | P.SEDATION_ITS ---
Moderate Sedation Note-Pt Data Patient Data Allergies Allergy/AdvReac Type Severity Reaction Status Date / Time No Known Allergies Allergy Mild Verified 02/01/25 11:55 Home Medications ?Medication ?Instructions ?Recorded ?Confirmed ?Type amlodipine 10 mg tablet 10 mg PO DAILY #90 tabs 06/07/24 02/02/25 Rx losartan 100 1 tablet PO DAILY #90 tabs 06/07/24 02/02/25 Rx mg-hydrochlorothiazide 25 mg tablet metoprolol succinate 100 mg 100 mg PO DAILY #90 tabs 06/07/24 02/02/25 Rx tablet,extended release 24 hr furosemide 20 mg tablet 20 mg PO DAILY 02/01/25 02/01/25 History rivaroxaban 20 mg tablet (Xarelto) 20 mg PO QHS 02/01/25 02/01/25 History Sedation/Anesthesia: No previous sedation/anesthesia problems (including family history). [facility] Past Medical History Medical History Wellness examination Age-related macular degeneration Pseudopapilledema of both optic discs Skin lesion Rash Family History Family History Father Hypertension Family history of cardiovascular disease Family history of lung cancer Mother Hypertension Cerebrovascular accident Sibling Family history of cardiovascular disease Social History Social History Social History: Smoking status: Never smoker Second hand tobacco smoke exposure: No Alcohol intake: current Drinks per week: 2 Alcohol use details: social Substance use: never Substance use type: does not use Do You Feel Safe in your Home?: Yes Lack of Transportation: No Lack of Food: Never True Current Housing: I Have Housing Concerned About Future Housing: No Difficulty Paying Gas/Electric Bills: No Difficulty Paying for Meds: No Currently Unemployed: YES Education: Don't Know Difficulty w/ Childcare or Family Care: No Living arrangements: with family Occupation/Education: retired Gender identity (if verbalized by the patient): Male Sexual Orientation (if Verbalized by the Patient): Straight or Heterosexual Spiritual care concerns: No Mod Sed Physical Exam Physical Exam Pre Procedural Exam: Normal: Lungs and Heart Rate Hours since solid foods: 12 Hours since liquid intake: 12 Mallampati Classification: class III Internal Medicine - PN: Obj Da Vital Signs Vital Signs: Vital Signs - 24 hr 02/02/25 08:27 Temperature 36.6 C Pulse Rate 61 Respiratory Rate 16 Blood Pressure 140/81 Pulse Oximetry 96 Oxygen Delivery Room Air Labs 02/02/25 08:32 02/02/25 08:32 Labs: Laboratory Results - last 24 hr 02/02/25 08:32 WBC 7.4 RBC 4.96 Hgb 16.2 Hct 46.0 MCV 92.7 MCH 32.7 MCHC 35.2 RDW 12.3 Plt Count 217 MPV 9.2 Immature Gran % (Auto) 1.2 H Neut % (Auto) 68.3 Lymph % (Auto) 13.6 L [place] % (Auto) 13.3 H Eos % (Auto) 2.7 Baso % (Auto) 0.9 Lymph # (Auto) 1.00 [place] # (Auto) 1.0 H Eos # (Auto) 0.2 Baso # (Auto) 0.1 Abs Immat Gran (auto) 0.09 H Absolute Neuts (auto) 5.0 Absolute Nucleated RBC 0.000 Nucleated RBC % 0.0 ASA Classification/Sedation ASA Classification/Sedation ASA Class: III Emergent: No Risks: Risks, benefits and alternatives explained and patient/family accepted plan for sedation. Patient re-evaluated immediately prior to sedation.
[2025-02-02 08:47] LABS: Anion Gap 10 mmol/L (4-12); Blood Urea Nitrogen 22 mg/dL (9-20); Calcium 9.3 mg/dL (8.4-10.2); Carbon Dioxide 25 mmol/L (22-30); Chloride 101 mmol/L (98-107); Estimated CRCL calculation 60 ml/min; Estimated Glomerular Filt Rate > 60; Glucose 137 mg/dL (65-110); Potassium 3.8 mmol/L (3.4-5.0); Sodium 136 mmol/L (137-145)
--- NOTE | 2025-02-02 10:13 | P.PCNCC_ITS ---
Cardiac Cath Procedure Note Date of procedure:: 02/02/25 Performing physician:: CATHETERIZATION LABORATORY REPORT Procedure Date: 02/02/2025 Referring Physician: Dr. Fall Anesthesia: Versed and Fentanyl were ordered and given in my presence at 0930, procedure ended at 0955. Supervision of nurse, Mallory Sen monitored moderate sedation with 2mg Versed and 50mcg Fentanyl was provided for 25 minutes. Pre-op Diagnosis: Abnormal Stress Test Post-op Diagnosis: Abnormal Stress Test Procedure(s): Left heart catheterization with coronary angiography Access Site: Right radial artery Brief History and Clinical Indications: 74-year-old man with paroxysmal atrial fibrillation on Xarelto, mild aortic stenosis, hypertension, and strong family history of cardiac disease was found to have abnormal stress test here to define his coronary anatomy with possible PCI. All risks, benefits and alternatives to left heart catheterization with or without percutaneous coronary intervention was discussed at length with the patient. Risk of complications including but not limited to bleeding, infection, arrhythmia, stroke, worsening kidney function, blood loss, groin hematoma, limb loss, emergency coronary artery bypass grafting, and even were discussed with the patient and all questions were answered. The patient understood and wished to proceed. Time out called, patient name, date of , medical record number, allergies, procedure performed, identify Grove Superintendent, patient and staff member concurred with accurate data, procedure carried on. Findings: LEFT HEART CATHETERIZATION FINDINGS: 1. Left main: The left main coronary artery is extremely short and free angiographic disease. 2. Left anterior descending: The LAD provides an arcade of diagonal branches. The 1st diagonal branch is a moderate-sized vessel with luminal irregularities. The remaining diagonal branches are small and miniscule. The proximal LAD right before the takeoff of the 1st septal has 50-60% stenosis followed by an area of 30-40% stenosis in the mid LAD leading into a focal area of 95% stenosis that is heavily calcified. Towards the distal portion of the mLAD, there is an area of 40% stenosis. The distal LAD also has a series of 20-40% stenosis. The apical LAD bifurcates around the apex and is free of significant angiographic disease. 3. Left circumflex: The left circumflex artery provides 3 OM branches. The proximal left circumflex has 30-40% calcified stenosis. The remainder of the system has diffuse 10-20% calcified stenosis. 4. Right coronary artery: The RCA is a large dominant vessel that has diffuse and heavily calcified 20-40% stenosis. The proximal portion of the RPL branch has 30-40% stenosis. The distal portion of the RPDA branch has 40-50% stenosis. 5. Left ventricle: A. End-diastolic pressure 19 mmHg. B. LV gram deferred. C. There is peak to peak gradient of 25 mm Hg across the aortic valve suggesting mild aortic stenosis. 6. Opening AO pressure 104/63 and closing AO pressure 109/56 Description of Procedure: Informed consent signed and placed in the chart. Patient transferred to research lab assistant room. Prepped and draped in usual sterile fashion. 2% lidocaine injected subcutaneously in right wrist area. 22-gauge venipuncture catheter used to access the right radial artery with the Seldinger technique. 6-FR slender sheath placed in right radial artery. Nitroglycerin 200mcg, V erapamil 2.5mg, and Heparin 5000U was given intraarterial through the sheath. J wire advanced under fluoroscopy 5F Ultra diagnostic catheter engaged Right Coronary Artery; however quickly falls into the Conus branch. The Ultra was switched out for a JR4 diagnostic catheter which was more stable in the ostium of the RCA. 5F Ultra diagnostic catheter engaged Left Main Coronary Artery; however, falls out towards end of each injection resulting in poorly visualized mid-distal portions of the left system. The Ultra was switched out for a 6F EBU 3.5 guide catheter which provided more support throughout the injections leading to better visualization of the vessels. Multiple orthogonal angiogram obtained and reviewed 5F Pigtail catheter crossed aortic valve to obtain LVEDP, LV angiogram deferred. Hemostasis was achieved by application of TR band. Assessment: Single-vessel obstructive and severely/heavily calcified CAD Post Operative Condition: Stable No significant blood loss Disposition: Home Plan: Patient can resume Xarelto this evening. We had a discussion on Shockwave assisted PCI vs CABG vs Medical Management. While a SAMAYOA-LAD would provide the best longevity, his coronary artery disease may progress in the other vessels and he may require repeat catheterization with PCI in the future despite CABG. Additionally, he will require repeat catheterization in the future given the natural history of aortic stenosis is to progress. After all questions answered, patient was discharged after recovery with the addition of rosuvastatin 20mg every evening to his medication regimen. He will follow up with Dr. Fall to make a final informed decision. [facility] Interventional Cardiology
[2025-02-02] MEDS: SODIUM CHLORIDE 0.9% IV 1,000 ML 125 ML IV CONT (10:35)
== END 2025-02-02 13:16 | disposition home or self-care (01) ==
PROVIDERS: PCP Family Medicine; Visit Provider Internal Medicine
PROC: 4A023N7 Measurement of Cardiac Sampling and Pressure, Left Heart, Percutaneous Approach (ICD-10-PCS; CPT 93452; principal; 2025-02-02 09:30)
DX: I25.10 Atherosclerotic heart disease of native coronary artery without angina pectoris (principal); R94.39 Abnormal result of other cardiovascular function study; I48.0 Paroxysmal atrial fibrillation; I10 Essential (primary) hypertension; I35.0 Nonrheumatic aortic (valve) stenosis; Z79.01 Long term (current) use of anticoagulants; Z82.49 Family history of ischemic heart disease and other diseases of the circulatory system
CPT/HCPCS: 36415; 80048; 85025; 93458; C1769; C1887; C1894; J1644; J2003; J2250; J2305; J3010; J7040

== ENCOUNTER 2025-02-10 21:41 | Emergency (ER) | payer MEDICARE, OTHER, SELFPAY ==
--- NOTE | ~2025-02-10 | CT_ITS ---
History: Fall PROCEDURE: CT head without contrast. COMPARISON: None TECHNIQUE: Axial imaging of the head performed from the skull base to the vertex without IV contrast. Sagittal a nd coronal reformations obtained. DLP: 681 mGy-cm FINDINGS: The ventricles are enlarged. The dilatation of the ventricles is proportional to the degree of sulcal prominence, not uncommon in the senescent brain. Decreased attenuation is identified within the periventricular white matter, likely secondary to micr ovascular ischemic disease, in a patient of this age. There is no mass, mass effect or midline shift. There is no abnormal extra-axial fluid collection or intracranial hemorrhage. Visualized paranasal sinuses are clear. The mastoid air cells are well aerated. No acute displaced fractures within the overlying cranium. Impression: No acute intracranial hemorrhage or suspicious mass effect. Reviewed, dictated and finalized at location A. Impression: No acute intracranial hemorrhage or suspicious mass effect.
--- NOTE | ~2025-02-10 | CT_ITS ---
History: Fall PROCEDURE: CT cervical spine without intravenous contrast. COMPARISON: None TECHNIQUE: Multiple contiguous axial images of the cervical spine were performed without the administration of i ntravenous contrast. DLP: 455 mGy-cm FINDINGS: Straightening and slight reversal of the normal curvature of the cervical spine is identified, likely muscular in origin. Significant degenerative disease is identified with osteophyte formation, endplate changes and facet arthropathy. No acute fractures are present. The bilateral lung apices are unremarkable. No soft tissue abnormality is present. The airway is patent. Impression: Significant degenerative disease, without acute fracture. Reviewed, dictated and finalized at location A. Impression: Significant degenerative disease, without acute fracture.
[2025-02-10 21:43] VITALS: BP 153/83; PULSE 58; RESP 18; TEMP 36.8; O2SAT 97
[2025-02-11 00:49] VITALS: BP 149/81; PULSE 60; RESP 20; TEMP 36.8; O2SAT 98
--- NOTE | 2025-02-11 00:51 | ED.WOUNDLAC ---
HPI - Wound/Laceration General Chief Complaint: Wound/Laceration Stated Complaint: fall Time Seen by Provider: 02/11/25 00:36 History of Present Illness HPI narrative: 74-year-old male with history of DVT on Eliquis presents to the emergency department with at bedside for a ground level mechanical fall. Patient states he was outside watering his garden when he slipped on wet rocks and fell backwards hitting his head. He did not lose consciousness. He is reporting with a laceration to his left parietal scalp as well as minimal neck pain he describes as muscle soreness. He denies any other injuries including chest wall pain abdominal pain, extremity injury or back pain. Last Tdap unknown. Related Data Home Medications ?Medication ?Instructions ?Recorded ?Confirmed ?Last Taken ?Type furosemide 20 mg tablet 20 mg PO DAILY 02/01/25 02/01/25 02/01/25 History rivaroxaban 20 mg tablet (Xarelto) 20 mg PO QHS 02/01/25 02/01/25 01/31/25 History Allergies Allergy/AdvReac Type Severity Reaction Status Date / Time No Known Allergies Allergy Mild Verified 02/11/25 00:50 Review of Systems Review of Systems: All systems reviewed & are unremarkable except as noted in HPI and below PMFSH Past Medical History Medical History Wellness examination Age-related macular degeneration Pseudopapilledema of both optic discs Skin lesion Rash Family History Family History Father Hypertension Family history of cardiovascular disease Family history of lung cancer Mother Hypertension Cerebrovascular accident Sibling Family history of cardiovascular disease Social History Social History Social History: Smoking status: Never smoker Second hand tobacco smoke exposure: No Alcohol intake: current Drinks per week: 2 Alcohol use details: social Substance use: never Substance use type: does not use Do You Feel Safe in your Home?: Yes Lack of Transportation: No Lack of Food: Never True Current Housing: I Have Housing Concerned About Future Housing: No Difficulty Paying Gas/Electric Bills: No Difficulty Paying for Meds: No Currently Unemployed: YES Education: Don't Know Difficulty w/ Childcare or Family Care: No Living arrangements: with family Occupation/Education: retired Gender identity (if verbalized by the patient): Male Sexual Orientation (if Verbalized by the Patient): Straight or Heterosexual Spiritual care concerns: No Exam Narrative: GENERAL: Well-appearing, well-nourished, and in no acute distress. HEAD: Normocephalic. Approximately 5 cm linear scalp wound to the left parietal scalp with no active bleeding. There is several small home pine needles visualized, otherwise no deep structures or foreign bodies. No active bleeding. EYES: PERRLA and EOMI. ENT: Nares clear, no rhinorrhea or epistaxis. Mucous membranes moist. NECK: Minimal midline cervical spinous tenderness without crepitus, step-offs or deformities. Tenderness to bilateral paraspinous muscles. BACK: No midline thoracolumbar spinous tenderness, crepitus, step-offs or deformities CHEST: Clear to auscultation. No respiratory distress. No tenderness, ecchymosis, crepitus, step-offs or deformities chest wall HEART: Regular rate and rhythm. No murmur heard. Normal peripheral pulses. ABDOMEN: Soft, nontender, nondistended, normal active bowel sounds. No rebound or rigidity. No overlying skin changes or ecchymosis EXTREMITIES: Normal range of motion. No edema. No tenderness to upper lower extremities SKIN: Warm, dry, no rash. NEURO: No focal deficits. Alert and oriented x4. Cranial nerves 2-12 intact. Strength 5/5 in BUE and BLE. Sensation intact throughout. No ataxia Course Vital Signs Vital signs: Vital Signs Temperature 98.2 F 02/10/25 21:43 Pulse Rate 58 L 02/10/25 21:43 Respiratory Rate 18 02/10/25 21:43 Blood Pressure 153/83 H 02/10/25 21:43 Pulse Oximetry 97 02/10/25 21:43 Oxygen Delivery Room Air 02/10/25 21:43 Temperature 98.2 F 02/11/25 00:57 Pulse Rate 60 02/11/25 02:01 Respiratory Rate 16 02/11/25 02:01 Blood Pressure 138/70 02/11/25 02:01 Pulse Oximetry 98 02/11/25 02:01 Oxygen Delivery Room Air 02/11/25 00:49 Procedures Laceration Laceration 1: Date: 02/11/25 Time: 01:42 Site: scalp Side (If applicable): left Size (cm): 5 Description: linear Depth: simple, single layer Pre-repair: wound explored, irrigated, irrigated extensively and minor debridement ====== Skin Level ====== Skin layer closed with: wade Number of sutures: 5 ====== Subcutaneous Layer ====== ====== Muscle Layer ====== ====== Tendon Layer ====== MDM - Wound/Laceration MDM Narrative Medical decision making narrative: 74-year-old male presents emergency department with at bedside for ground level mechanical fall that occurred prior to arrival. Patient was watering is guarding when he slipped on wet rocks and fell backwards. He did hit his head but did not lose consciousness. He is anticoagulated on Xarelto for prior DVT. He presents emergency department with a laceration to the left side of his scalp. Bleeding is controlled. No neurologic deficits. Vital signs are stable. CT brain and cervical spine showed no acute findings. Scalp laceration was irrigated extensively with normal saline and did have several pine needles extracted. Laceration then closed with 5 wade without complication. Given the laceration was dirty and contaminated, will start the patient on a course of antibiotics. He was given a dose of Keflex here. His Tdap was updated. He was advised of his wade removed in 7 days and was given strict ED return precautions. He and his are agreeable with the plan and verbalized understanding. Discharged in stable condition. Discharge Plan Discharge Clinical Impression: Laceration of scalp, Head injury, Acute cervical myofascial strain Patient Disposition: Home Condition: Stable Instructions: Antibiotic Form, Laceration (ED), Head Injury (DC), Staple Care (ED) Additional Instructions: You had 5 wade placed. Please get these removed in 7 days by urgent care, primary care or emergency department. Take antibiotics as directed. Return to the emergency department if you develop confusion, loss of consciousness, vision changes, focal numbness or weakness, fever, redness or drainage your wound, or other concerning symptoms. Patient Language: Turkish Prescriptions: New cephalexin 500 mg capsule 500 mg PO Q8H 7 Days Qty: 21 0RF No Action amlodipine 10 mg tablet 10 mg PO DAILY Qty: 90 3RF losartan-hydrochlorothiazide 100-25 mg tablet 1 tablet PO DAILY Qty: 90 3RF metoprolol succinate 100 mg tablet extended release 24 hr 100 mg PO DAILY Qty: 90 3RF furosemide 20 mg tablet 20 mg PO DAILY Xarelto 20 mg tablet 20 mg PO QHS rosuvastatin 20 mg tablet 20 mg PO QHS Qty: 90 3RF Follow-up/Referrals: Clem Curry MD [Primary Care Provider] -
[2025-02-11] MEDS: TETANUS,DIPHTHERIA,AC PERTUSSIS ADULT (0.5 ML) BOOSTRIX IM (00:54)
[2025-02-11] MEDS: HYDROGEN PEROXIDE 3% SOLN(*SP) 473 ML BOTTLE (00:55)
[2025-02-11 00:57] VITALS: BP 149/81; PULSE 66; RESP 17; TEMP 36.8; O2SAT 96
[2025-02-11] MEDS: CEPHALEXIN 500 MG CAPSULE PO (01:53)
[2025-02-11 02:01] VITALS: BP 138/70; PULSE 60; RESP 16; O2SAT 98
== END 2025-02-11 02:03 | disposition home or self-care (01) ==
PROVIDERS: Emergency Provider Physician Assistant; PCP Family Medicine
DX: S01.01XA Laceration without foreign body of scalp, initial encounter (principal); S16.1XXA Strain of muscle, fascia and tendon at neck level, initial encounter; W01.0XXA Fall on same level from slipping, tripping and stumbling without subsequent striking against object, initial encounter; Z23 Encounter for immunization
CPT/HCPCS: 12001; 70450; 72125; 90471; 90715; 99284; A9270

== ENCOUNTER 2025-02-20 14:16 | Emergency (ER) | payer MEDICARE, OTHER, SELFPAY ==
[2025-02-20 14:20] VITALS: BP 128/67; PULSE 62; RESP 16; TEMP 36.7; O2SAT 96
--- NOTE | 2025-02-20 14:33 | ED_ITS ---
HPI - Wound/Laceration General Chief Complaint: Wound/Laceration Stated Complaint: Stitches Removal Source: patient and RN notes reviewed Mode of arrival: ambulatory Limitations: no limitations History of Present Illness HPI narrative: Patient is a 74-year-old male who presents to the [facility] with request for staple removal. Patient states that on 02/10/2025 he remembered to water his plants at 10:00 p.m. at night. He failed to turn on any lights and tripped in the [employer]. He was seen immediately following the incident at [facility]. He had 5 wade placed in his scalp. He is here for staple removal. He denies any signs or symptoms of infection. Related Data Home Medications ?Medication ?Instructions ?Recorded ?Confirmed ?Last Taken ?Type furosemide 20 mg tablet 20 mg PO DAILY 02/01/25 02/20/25 02/01/25 History rivaroxaban 20 mg tablet (Xarelto) 20 mg PO QHS 02/01/25 02/20/25 01/31/25 History Allergies Allergy/AdvReac Type Severity Reaction Status Date / Time No Known Allergies Allergy Mild Verified 02/20/25 14:31 Review of Systems Review of Systems: CONSTITUTIONAL: Denies fever, chills, or sweats. EYES: Denies visual changes, redness, or discharge. ENT: Denies otalgia and sore throat CARDIOVASCULAR: Denies chest pain, palpitations, or edema. RESPIRATORY: Denies cough or dyspnea. GASTROINTESTINAL: Denies abdominal pain, nausea, vomiting, or diarrhea. GENITOURINARY: Denies dysuria or hematuria. SKIN: Reports healing laceration to the left scalp. MUSCULOSKELETAL: Denies back pain, joint pain, or myalgia. NEUROLOGIC: Denies headache, numbness, or weakness. Pertinent positives per HPI. [facility] Past Medical History Medical History Wellness examination Age-related macular degeneration Pseudopapilledema of both optic discs Skin lesion Rash Family History Family History Father Hypertension Family history of cardiovascular disease Family history of lung cancer Mother Hypertension Cerebrovascular accident Sibling Family history of cardiovascular disease Social History Social History Social History: Smoking status: Never smoker Second hand tobacco smoke exposure: No Alcohol intake: current Drinks per week: 2 Alcohol use details: social Substance use: never Substance use type: does not use Do You Feel Safe in your Home?: Yes Lack of Transportation: No Lack of Food: Never True Current Housing: I Have Housing Concerned About Future Housing: No Difficulty Paying Gas/Electric Bills: No Difficulty Paying for Meds: No Currently Unemployed: YES Education: Don't Know Difficulty w/ Childcare or Family Care: No Living arrangements: with family Occupation/Education: retired Gender identity (if verbalized by the patient): Male Sexual Orientation (if Verbalized by the Patient): Straight or Heterosexual Spiritual care concerns: No Comments At the time of my signature, I reviewed and agree with the nursing past medical, surgical, social, and family history. There is no relevant family history pertinent to the patient complaint. Exam Narrative: GENERAL: This is a well-nourished, well-developed patient, in no apparent distress. HEAD: normocephalic, atraumatic. EYES: Sclera clear/white. Vision is grossly intact. EARS: External ears normal. Hearing grossly intact. NOSE: External nose normal with no obvious nasal discharge, nares without redness, no rhinorrhea. THROAT: Mucous membranes moist, posterior pharynx clear. NECK: Neck supple, non-tender without lymphadenopathy, masses or thyromegaly. CARDIOVASCULAR: Regular rate and rhythm without murmurs, gallops, or rubs. RESPIRATORY: Clear to auscultation. Breath sounds equal bilaterally. No wheezes, rales, or rhonchi. GASTROINTESTINAL: Abdomen soft, non-tender, nondistended. Bowel sounds are active. No hepato-splenomegaly, or palpable masses. No guarding. SKIN: Scabbed, healing laceration to the left scalp with no signs of infection. NEURO: awake, alert, and oriented to person, place and time. There were no obvious focal neurologic abnormalities. Course Course Level of Care: Express Care Visit Vital Signs Vital signs: Vital Signs Temperature 98.1 F 02/20/25 14:20 Pulse Rate 62 02/20/25 14:20 Respiratory Rate 16 02/20/25 14:20 Blood Pressure 128/67 02/20/25 14:20 Pulse Oximetry 96 02/20/25 14:20 Oxygen Delivery Room Air 02/20/25 14:20 Temperature 98.1 F 02/20/25 14:20 Pulse Rate 62 02/20/25 14:20 Respiratory Rate 16 02/20/25 14:20 Blood Pressure 128/67 02/20/25 14:20 Pulse Oximetry 96 02/20/25 14:20 Oxygen Delivery Room Air 02/20/25 14:20 Reviewed Procedures Other Procedure Procedure 1: Other Procedure: 5 wade removed from scalp without difficulty. Patient tolerated well. Wound care instructions reviewed with patient, who verbalized understanding. No signs of infection present. MDM - Wound/Laceration MDM Narrative Medical decision making narrative: Keep wound clean and dry. Continue to monitor for signs of infection. Follow-up with primary care physician as needed. Differential Diagnosis Differential diagnosis: Likely laceration and other (wound infection, suture removal, staple removal) Critical Care Time Critical Care Time Critical Care Time: No Discharge Plan Discharge Clinical Impression: Encounter for staple removal Patient Disposition: Home Condition: Stable Instructions: Staple Care (ED) Additional Instructions: Keep wound clean and dry. Continue to monitor for signs of infection. Follow-up with primary care physician as needed. Patient Language: [place] Prescriptions: No Action amlodipine 10 mg tablet 10 mg PO DAILY Qty: 90 3RF losartan-hydrochlorothiazide 100-25 mg tablet 1 tablet PO DAILY Qty: 90 3RF metoprolol succinate 100 mg tablet extended release 24 hr 100 mg PO DAILY Qty: 90 3RF furosemide 20 mg tablet 20 mg PO DAILY Xarelto 20 mg tablet 20 mg PO QHS rosuvastatin 20 mg tablet 20 mg PO QHS Qty: 90 3RF cephalexin 500 mg capsule 500 mg PO Q8H 7 Days Qty: 21 0RF Follow-up/Referrals: Clem Curry MD [Primary Care Provider] - Time of Disposition: 14:42
== END 2025-02-20 14:44 | disposition home or self-care (01) ==
PROVIDERS: Emergency Provider Nurse Practitioner; PCP Family Medicine
DX: S01.01XD Laceration without foreign body of scalp, subsequent encounter (principal); W01.0XXD Fall on same level from slipping, tripping and stumbling without subsequent striking against object, subsequent encounter; H35.30 Unspecified macular degeneration; Z79.01 Long term (current) use of anticoagulants
CPT/HCPCS: 99211; G0463

== ENCOUNTER 2025-05-15 14:31 | Outpatient (CLI) | payer MEDICARE, OTHER, SELFPAY ==
--- NOTE | ~2025-05-15 | US_ITS ---
EXAMINATION:US venous doppler LE BI INDICATION:Acute embolism. TECHNIQUE: Multiple grayscale, color flow and Doppler images of the bilateral lower extremity deep venous systems were obtained and reviewed. COMPARISON: FINDINGS: The bilateral common femoral, bilateral superficial femoral and bilateral popliteal veins demonstrate normal respiratory variation, augmentation and compressibility. Color flow is also seen within the posterior tibial, peroneal, greater saphenous and profunda veins. IMPRESSION: 1: No bilateral lower extremity deep venous thrombosis. Reviewed, dictated and finalized at location Q.
--- OUTSIDE RECORDS SUMMARY | 2025-05-15 14:34 | XMS_ITS | Clinical Summary ---
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 Name Role Phone Clem Curry MD Primary Care Provider Diaz Ramírez MD Unavailable [phone] Jillian Fall MD Unavailable Allergies No known active allergies Medications furosemide (LASIX) 20 mg tabletIndicatio ns:Bilateral lower extremity edema Take 1 tablet (20 mg total) by mouth daily 30 tablet 11 5 01/11/20 26 Active rivaroxaban (XARELTO) 10 mg tablet Take 1 tablet (10 mg total) by mouth daily 90 tablet 3 5 01/18/20 26 Active aspirin 81 mg enteric coated tabletIndicatio ns: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[place] heart without angina pectoris Take 1 tablet (81 mg total) by mouth daily 5 03/03/20 26 Active rosuvastatin (CRESTOR) 20 mg tabletIndicatio ns: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[place] heart without angina pectoris Take 1 tablet (20 mg total) by mouth daily 5 03/03/20 26 Active acetaminophen 500 mg capsuleIndicati ons:Pain Take 1 capsule (500 mg total) by mouth every 6 (six) hours as needed for pain 5 Active HYDROcodone-karyna taminophen (NORCO) 5-325 mg per tabletIndicatio ns:Pain Take 1-2 tablets by mouth every 6 (six) hours as needed (pain) 30 tablet 5 Active metoprolol XL (TOPROL-XL) 100 mg 24 hr tabletIndicatio ns: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[place] heart without angina pectoris Take 1 tablet (100 mg total) by mouth daily 5 04/28/20 26 Active losartan (COZAAR) 50 mg tabletIndicatio ns: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yenne heart without angina pectoris,Aneury sm of ascending aorta without rupture,Essenti al hypertension, benign Take 1 tablet (50 mg total) by mouth daily 90 tablet 3 5 04/28/20 26 Active amLODIPine (NORVASC) 5 mg tablet Take 1 tablet (5 mg total) by mouth daily 5 04/28/20 26 Active tamsulosin (FLOMAX) 0.4 mg extended release capsule Take 1 capsule (0.4 mg total) by mouth daily with dinner 30 capsule 5 Active amLODIPine (NORVASC) 10 mg tablet Take 1 tablet (10 mg total) by mouth every morning 04/28/20 25 Discontinu ed(Other) vitamin A-vitamin C-vit E-min tablet Take 1 tablet by mouth daily 04/28/20 25 Discontinu ed(Therapy completed) amiodarone (PACERONE) 200 mg tablet Take 2 tablets (400 mg total) by mouth 2 (two) times a day for 7 days, THEN 1 tablet (200 mg total) daily. 58 tablet 5 04/28/20 25 Discontinu ed(Therapy completed) losartan (COZAAR) 25 mg tablet Take 1 tablet (25 mg total) by mouth daily 30 tablet 1 5 04/28/20 25 Discontinu ed(Therapy completed) tamsulosin (FLOMAX) 0.4 mg extended release capsule Take 1 capsule (0.4 mg total) by mouth daily with dinner 30 capsule 5 05/01/20 25 Discontinu ed(Reorder ) metoprolol (LOPRESSOR) 100 mg tablet Take 1 tablet (100 mg total) by mouth 2 (two) times a day 60 tablet 1 5 04/28/20 25 Discontinu ed(Therapy completed) HYDROcodone-karyna taminophen (NORCO) 5-325 mg per tabletIndicatio ns:Pain Take 1-2 tablets by mouth every 6 (six) hours as needed (pain) 30 tablet 5 04/18/20 25 Discontinu ed(Reorder ) Active Problems Problem Noted Date Diagnosed Date S/P CABG x 1 04/28/2025 Coronary artery disease due to calcified coronar y lesion 03/24/2025 Coronary artery disease invo lving northern cheyenne coronary artery of northern che[place] heart with unstable angina pectoris 03/15/2025 Aneurysm of ascending aorta without rupture 02/22 Hypersomnolence 03/03/2025 Right carotid bruit 03/03/2025 Coronary artery disease invo lving northern cheyenne coronary artery of northern che[place] heart without angina pectoris 03/03/2025 Family history of premature CAD 01/10/2025 Prostate cancer 01/05/2024 Lipid screening 06/20/2022 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 AMD (age-related macular degeneration), bilatera l 08/29/2019 Obesity (BMI 30.0-34.9) 09/29/2018 Pulmonary hypertension 09/29/2018 Asymptomatic varicose veins 03/01/2018 Bilateral lower extremity edema 03/01/2018 Non-rheumatic aortic stenosis 02/16/2017 Essential hypertension, benign 02/16/2017 Overweight(278.02) 02/16/2017 Encounters Date Type Department Care Team Description 05/02/2025 10:45 AM CDT Office Visit Cardiovascular and Thoracic Surgery [address] [place] [phone] Chang Aranda MD Aftercare following surgery of the circulatory system (Primary Dx) 05/01/2025 Telephone Cardiovascular and Thoracic Surgery [address] [place] [phone] Chang Aranda MD Med Refill 04/28/2025 1:30 PM CDT Office Visit [facility] Medical Group Cardiology at [address] [place] [phone] Jillian Fall MD 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yenne heart without angina pectoris (Primary Dx); Aneurysm of ascending aorta without rupture; Essential hypertension, benign; S/P CABG x 1; Non-rheumatic aortic stenosis 04/18/2025 Telephone Cardiovascular and Thoracic Surgery [address] [facility] [address] [place] [address] Chang Aranda MD Med Refill 04/06/2025 Telephone Cardiovascular and Thoracic Surgery [address] [facility] [address] [place] [address] Chang Aranda MD Med Refill 03/24/2025 2:45 PM CDT Anesthesia Event [facility] Operating Room [address] [place] [phone] Everardo Heart MD PhD 03/24/2025 12:30 PM CDT - 03/24/2025 5:25 PM CDT Surgery [facility] Operating Room [address] [place] [phone] Chang Aranda MD CORONARY ARTERY BYPASS GRAFT SINGLE 03/24/2025 11:40 AM CDT Ancillary Procedure [facility] Operating Room [address] [place] [phone] 03/24/2025 9:53 AM CDT - 03/30/2025 4:35 PM CDT Hospital Encounter [address] [phone] Chang Aranda MD 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yenne heart with unstable angina pectoris (HCC) (Primary Dx); S/P CABG x 1; Pulmonary hypertension (HCC); Post-operative pain Discharge Disposition: Discharge to home, home health skilled care 03/20/2025 Telephone [facility] Medical [facility] Cardiology [address] [facility] [address] [place] [phone] Jillian Fall MD 03/16/2025 11:00 AM CDT - 03/16/2025 11:59 PM CDT Hospital Encounter [facility] [address] [place] [address] Hypersomnolence Discharge Disposition: Discharge to home or self care 03/14/2025 11:50 AM CDT Lab [facility] Outpatient Lab [address] [place] [address] 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yenne heart without angina pectoris; Pre-op evaluation 03/14/2025 10:00 AM CDT Office Visit Cardiovascular and Thoracic Surgery [address] [place] [address] [address] [place] [address] Chang Aranda MD 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yenne heart without angina pectoris (Primary Dx); Pre-op evaluation 03/14/2025 8:20 AM CDT - 03/14/2025 11:59 PM CDT Hospital Encounter [facility] - Imaging [address] [place] [address] Aneurysm of ascending aorta without rupture Discharge Disposition: Discharge to home or self care 03/10/2025 Orders Only Cardiovascular and Thoracic Surgery [address] [place] [address] [address] [address] Jillian Fall MD 03/06/2025 Documentation Cardiovascular and Thoracic Surgery [address] [place] [phone] Amberly Cardenas 03/06/2025 Orders Only Cardiovascular and Thoracic Surgery [address] [place] [phone] Sonya Dinh NP Aneurysm of ascending aorta without rupture (Primary Dx) 03/03/2025 2:00 PM CDT Ancillary Procedure [facility] Vascular and Vein Surgery at [address] [place] [address] Right carotid bruit 03/03/2025 2:00 PM CDT Ancillary Procedure [facility] Cardiology at [address] [place] [address] 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yenne heart without angina pectoris; Non-rheumatic aortic stenosis 03/03/2025 10:30 AM CDT Office Visit [facility] Cardiology [address] [place] [address] [place] [address] [place] [phone] Jillian Fall MD 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yenne heart without angina pectoris (Primary Dx); Hypersomnolence; Non-rheumatic aortic stenosis; Essential hypertension, benign; Right carotid bruit 03/03/2025 Results Follow-Up [facility] Cardiology [address] [place] [address] [place] [address] [place] [phone] Jillian Fall MD US Carotids Duplex Bilateral, Transthoracic Echo (TTE) Complete W Doppler/CF, Portable/Home Sleep Study 02/13/2025 Orders Only [facility] Cardiology [address] [facility] [address] [place] [phone] Mj Pratt MD from Last 3 Months Surgical History Surgery Date Site/Laterality Comments CARPAL TUNNEL RELEASE 08/24/2006 - 08/23/2007 Bilateral PROSTATE SURGERY 02/01/2024 CORONARY ARTERY BYPASS GRAFT 03/24/2025 Chest/N/A SAMAYOA to LAD Medical devices from this surgery are in the Medical Devices section. Medical History Medical History Date Comments Hypertension Aortic stenosis Benign prostatic hyperplasia Skin cancer Obesity BMI 33 Prostate cancer 2023 Pulmonary Hypertension Deep venous thrombosis Coronary artery disease Obstructive sleep apnea Family History Medical History Relation Name Comments Coronary artery disease Brother 2 Tony Saucedo Heart attack Brother 2 Tony Saucedo Other [...] more drinks on one occasion? Monthly 04/12/2024 Overall Financial Resource Strain (CARDIA) Answe r Date Recorded How hard is it for you to pa y for the very basics like food, housing, medical care, and heating? Not hard at all 03/28/2025 Hunger Vital Sign Answer Date Recorded Within the past 12 months, y ou worried that your food would run out before you got the money to buy more. Never true 03/28/20 25 Within the past 12 months, t he food you bought just didn't last and you didn't have money to get more. Never true 03/28/2025 PRAPARE - Transportation Answer Date Re corded In the past 12 months, has l ack of transportation kept you from medical appointments or from getting medications? No 12/2024 In the past 12 months, has l ack of transportation kept you from meetings, work, or from getting things needed for daily living? No 03/28/2025 Housing Stability Vital Sign Answer Christiano e Recorded In the last 12 months, was t here a time when you were not able to pay the mortgage or rent on time? No 03/28/2025 In the past 12 months, how m any times have you moved where you were living? 0 03/28/2025 At any time in the past 12 m [facility], were you homeless or living in a nursing home (including now)? No 03/28/2025 Personal Safety Answer Date Recorded Have you ever been in or are you currently in a harmful physical or emotional relationship or is someone making you feel afraid or unsafe? Denies 03/24/2025 Sex and Gender Information Value Date Recorded Sex Assigned at Not on file Legal Sex Male 3:55 AM [employer]APLE [employer] Gender Identity Not on file Sexual Orientation Not on file Obstetrics History Last Filed Vital Signs Vital Sign Reading Time Taken Comments Blood Pressure 130/77 05/02/2025 10:58 AM CDT Pulse 58 05/02/2025 10:58 AM CDT Regu lar Temperature 36.7 C (98.1 F) 03/30/2025 8:11 AM CDT Respiratory Rate 16 05/02/2025 10:58 AM CDT Oxygen Saturation 91% 04/28/2025 1:28 PM CDT Inhaled Oxygen Concentration - - Weight 94.3 kg (208 lb) 04/28/2025 1:28 PM CDT Height 172.7 cm (5' 8) 04/28/2025 1:28 PM CDT Body Mass Index 31.63 04/28/2025 1:28 PM CDT Plan of Treatment Health Maintenance Due Date Last Done Comments Colon Cancer Screening-Colonoscopy 1950 Depression Screening 1950 Hepatitis C Screening 1950 Hepatitis B Screening 1969 Zoster Vaccine (2 of 3) 05/23/2014 03/28/2014 Well Visit 65+ 2016 Influenza Vaccine (#1) 2025 , 06/27/2020, 06/29/2018, Additional history exists Fall Risk Assessment 03/30/2026 03/30/2025 DTaP/Tdap/Td Vaccine (2 - Td or Tdap) 02/11/2035 02/11/2025 Pneumococcal vaccine 65+ Completed 020, 07/14/2017, 07/23/2016 Medical Devices Implanted Type Area Shear Tender Device Identifier Shelf Expiration Date Model / Serial / Lot [employer] Device Closure Tigertape Sternal Cerclage Blunt Needle [id number] - [id number] Implanted:Qty: 1 on 03/24/2025 by Chang Aranda MD at [facility] [employer] 11/21/2029 [id number] / / [id number] [employer] Device Closure Tigertape Sternal Cerclage Blunt Needle [id number] - [id number] Implanted:Qty: 1 on 03/24/2025 by Chang Aranda MD at [facility] [employer] 11/21/2029 [id number] / / [id number] Procedures Procedure Name Priority Date/Time Associated Diagnosis Comments HOME O2 EVAL (DESATURATION SCREEN) Routine 03/30/2025 9:32 AM CDT XR CHEST 1 VIEW IP Routine 03/30/2025 5:40 AM CDT EGFR Routine 03/30/2025 1:41 AM CDT RENAL FUNCTION PANEL Routine 03/30/2025 1:41 AM CDT CBC WITHOUT DIFFERENTIAL Routine 03/30/2025 1:41 AM CDT PEP THERAPY Routine 03/29/2025 6:00 PM CDT PEP THERAPY Routine 03/29/2025 1:00 PM CDT PULSE OXIMETRY STUDY Routine 03/29/2025 9:29 AM CDT PEP THERAPY Routine 03/29/2025 8:01 AM CDT XR CHEST 1 VIEW IP Routine 03/29/2025 6:45 AM CDT EGFR Routine 03/29/2025 12:35 AM CDT MAGNESIUM Routine 03/29/2025 12:35 AM CDT RENAL FUNCTION PANEL Routine 03/29/2025 12:35 AM CDT CBC WITHOUT DIFFERENTIAL Routine 03/29/2025 12:35 AM CDT PEP THERAPY Routine 03/28/2025 10:00 PM CDT POTASSIUM LEVEL STAT 03/28/2025 6:36 PM CDT PEP THERAPY Routine 03/28/2025 6:00 PM CDT PEP THERAPY Routine 03/28/2025 1:00 PM CDT PEP THERAPY Routine 03/28/2025 8:01 AM CDT XR CHEST 1 VIEW IP Routine 03/28/2025 6:45 AM CDT PREPARE RBC STAT 03/28/2025 5:32 AM CDT EGFR Routine 03/28/2025 12:48 AM CDT MAGNESIUM Routine 03/28/2025 12:48 AM CDT CALCIUM, IONIZED Routine 03/28/2025 12:4 8 AM CDT RENAL FUNCTION PANEL Routine 03/28/2025 12:48 AM CDT CBC WITHOUT DIFFERENTIAL Routine 03/28/2025 12:48 AM CDT TYPE AND SCREEN Timed 03/28/2025 12:48 AM CDT PEP THERAPY Routine 03/27/2025 10:00 PM CDT POCT GLUCOSE DEVICE Routine 03/27/2025 9 :02 PM CDT PEP THERAPY Routine 03/27/2025 6:00 PM CDT POCT GLUCOSE DEVICE Routine 03/27/2025 5 :02 PM CDT PEP THERAPY Routine 03/27/2025 1:00 PM CDT POCT GLUCOSE DEVICE Routine 03/27/2025 1 2:19 PM CDT POCT GLUCOSE DEVICE Routine 03/27/2025 8:09 AM CDT PEP THERAPY Routine 03/27/2025 8:01 AM CDT CRITICAL CARE Routine 03/27/2025 6:52 AM CDT 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yenne heart with unstable angina pectoris (HCC) XR CHEST 1 VIEW IP Routine 03/27/2025 6:27 AM CDT POTASSIUM LEVEL STAT 03/27/2025 5:12 AM CDT EGFR Routine 03/27/2025 12:34 AM CDT MAGNESIUM Routine 03/27/2025 12:34 AM CDT CALCIUM, IONIZED Routine 03/27/2025 12:3 4 AM CDT RENAL FUNCTION PANEL Routine 03/27/2025 12:34 AM CDT CBC WITHOUT DIFFERENTIAL Routine 03/27/2025 12:34 AM CDT PEP THERAPY Routine 03/26/2025 10:00 PM CDT POCT GLUCOSE DEVICE Routine 03/26/2025 9 :04 PM CDT CRITICAL CARE Routine 03/26/2025 6:39 PM CDT 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yenne heart with unstable angina pectoris (HCC) PEP THERAPY Routine 03/26/2025 6:00 PM CDT POTASSIUM LEVEL STAT 03/26/2025 5:28 PM CDT POCT GLUCOSE DEVICE Routine 03/26/2025 5 :22 PM CDT PEP THERAPY Routine 03/26/2025 1:00 PM CDT POTASSIUM LEVEL STAT 03/26/2025 11:34 AM CDT POCT GLUCOSE DEVICE Routine 03/26/2025 1 1:30 AM CDT XR CHEST 1 VIEW ED Urgent/IP Urgent 03/26/2025 10:51 AM CDT PEP THERAPY Routine 03/26/2025 10:27 AM CDT PEP THERAPY Routine 03/26/2025 10:27 AM CDT POCT GLUCOSE DEVICE Routine 03/26/2025 8 :16 AM CDT POTASSIUM LEVEL STAT 03/26/2025 6:56 AM CDT CRITICAL CARE Routine 03/26/2025 6:35 AM CDT 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yenne heart with unstable angina pectoris (HCC) XR CHEST 1 VIEW IP Routine 03/26/2025 5:54 AM CDT POCT GLUCOSE DEVICE Routine 03/26/2025 3 :21 AM CDT EGFR Routine 03/26/2025 2:20 AM CDT MAGNESIUM Routine 03/26/2025 2:20 AM CDT CALCIUM, IONIZED Routine 03/26/2025 2:20 AM CDT RENAL FUNCTION PANEL Routine 03/26/2025 2:20 AM CDT CBC WITHOUT DIFFERENTIAL Routine 03/26/2025 2:20 AM CDT POCT GLUCOSE DEVICE Routine 03/26/2025 1 2:20 AM CDT POCT GLUCOSE DEVICE Routine 03/25/2025 1 1:19 PM CDT POCT GLUCOSE DEVICE Routine 03/25/2025 1 0:23 PM CDT POCT GLUCOSE DEVICE Routine 03/25/2025 9 :22 PM CDT POCT GLUCOSE DEVICE Routine 03/25/2025 8 :05 PM CDT CRITICAL CARE Routine 03/25/2025 6:52 PM CDT 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yenne heart with unstable angina pectoris (HCC) POCT GLUCOSE DEVICE Routine 03/25/2025 6 :20 PM CDT POCT GLUCOSE DEVICE Routine 03/25/2025 5 :15 PM CDT POCT GLUCOSE DEVICE Routine 03/25/2025 3 :50 PM CDT POCT GLUCOSE DEVICE Routine 03/25/2025 2 :17 PM CDT POCT GLUCOSE DEVICE Routine 03/25/2025 1 1:58 AM CDT POTASSIUM LEVEL STAT 03/25/2025 11:53 AM CDT POCT GLUCOSE DEVICE Routine 03/25/2025 1 0:59 AM CDT POCT GLUCOSE DEVICE Routine 03/25/2025 1 0:03 AM CDT POCT GLUCOSE DEVICE Routine 03/25/2025 7 :49 AM CDT CRITICAL CARE Routine 03/25/2025 6:56 AM CDT 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yenne heart with unstable angina pectoris (HCC) POCT GLUCOSE DEVICE Routine 03/25/2025 6 :46 AM CDT XR CHEST 1 VIEW IP Routine 03/25/2025 6:43 AM CDT POCT GLUCOSE DEVICE Routine 03/25/2025 5 :54 AM CDT POCT GLUCOSE DEVICE Routine 03/25/2025 3 :51 AM CDT POCT GLUCOSE DEVICE Routine 03/25/2025 3 :02 AM CDT POCT GLUCOSE DEVICE Routine 03/25/2025 1 :57 AM CDT POCT GLUCOSE DEVICE Routine 03/25/2025 1 :05 AM CDT POCT GLUCOSE DEVICE Routine 03/25/2025 1 2:28 AM CDT EGFR Routine 03/25/2025 12:26 AM CDT MAGNESIUM Routine 03/25/2025 12:26 AM CDT CALCIUM, IONIZED Routine 03/25/2025 12:2 6 AM CDT RENAL FUNCTION PANEL Routine 03/25/2025 12:26 AM CDT CBC WITHOUT DIFFERENTIAL Routine 03/25/2025 12:26 AM CDT POCT GLUCOSE DEVICE Routine 03/24/2025 1 1:24 PM CDT POCT GLUCOSE DEVICE Routine 03/24/2025 9 :54 PM CDT POCT GLUCOSE DEVICE Routine 03/24/2025 9 :06 PM CDT EXTUBATION Routine 03/24/2025 8:39 PM CDT POCT GLUCOSE DEVICE Routine 03/24/2025 7 :56 PM CDT CRITICAL CARE Routine 03/24/2025 7:04 PM CDT XR CHEST 1 VIEW ED Urgent/IP Urgent 03/24/2025 6:55 PM CDT EGFR STAT 03/24/2025 6:48 PM CDT LACTATE STAT 03/24/2025 6:48 PM CDT APTT STAT 03/24/2025 6:48 PM CDT PROTIME-INR STAT 03/24/2025 6:48 PM CDT CBC WITHOUT DIFFERENTIAL STAT 03/24/2025 6:48 PM CDT BLOOD GAS, ARTERIAL STAT 03/24/2025 6 :48 PM CDT CALCIUM, IONIZED STAT 03/24/2025 6:48 PM CDT MAGNESIUM STAT 03/24/2025 6:48 PM CDT BASIC METABOLIC PANEL STAT 03/24/2025 6:48 PM CDT PHOSPHORUS STAT 03/24/2025 6:48 PM CDT POCT GLUCOSE DEVICE Routine 03/24/2025 6 :42 PM CDT PROTIME-INR STAT 03/24/2025 5:47 PM CDT FIBRINOGEN STAT 03/24/2025 5:47 PM CDT CBC WITHOUT DIFFERENTIAL STAT 03/24/2025 5:47 PM CDT APTT STAT 03/24/2025 5:47 PM CDT POCT ACTIVATED CLOTTING TIME, HIGH RANGE Routine 03/24/2025 5:31 PM CDT POC BLOOD GAS AND CHEMISTRIES, ARTERIAL Routine 03/24/2025 5:30 PM CDT POC BLOOD GAS AND CHEMISTRIES, VENOUS Routine 03/24/2025 4:50 PM CDT POC BLOOD GAS AND CHEMISTRIES, ARTERIAL Routine 03/24/2025 4:48 PM CDT POCT ACTIVATED CLOTTING TIME, HIGH RANGE Routine 03/24/2025 4:47 PM CDT POCT ACTIVATED CLOTTING TIME, HIGH RANGE Routine 03/24/2025 4:14 PM CDT [place] AN PROCEDURE PLACEHOLDER Routine 03/24/2025 3:39 PM CDT POC BLOOD GAS AND CHEMISTRIES, ARTERIAL Routine 03/24/2025 3:19 PM CDT POCT ACTIVATED CLOTTING TIME, HIGH RANGE Routine 03/24/2025 3:19 PM CDT [place] AN PROCEDURE PLACEHOLDER Routine 03/24/2025 2:56 PM CDT ANESTHESIA CENTRAL VENOUS LINE PLACEMENT Routine 03/24/2025 2:56 PM CDT ANESTHESIA CENTRAL VENOUS LINE PLACEMENT Routine 03/24/2025 2:56 PM CDT [place] AN PROCEDURE PLACEHOLDER Routine 03/24/2025 2:55 PM CDT [place] AN CENTRAL LINE QUADRUPLE LUMEN Routine 03/24/2025 2:55 PM CDT [place] AN PROCEDURE PLACEHOLDER Routine 03/24/2025 2:55 PM CDT [place] AN PROCEDURE PLACEHOLDER Routine 03/24/2025 2:55 PM CDT [place] AN ELECTIVE ENDOTRACHEAL AIRWAY Routine 03/24/2025 2:55 PM CDT CORONARY ARTERY BYPASS GRAFT. 03/24/2025 2:32 PM CDT 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yenne heart with unstable angina pectoris (HCC) DRU ADD-ON FOR OR Routine 03/24/2025 11: 37 AM CDT ECG 12-LEAD Routine 03/24/2025 11:28 AM CDT HEMOGLOBIN A1C STAT 03/24/2025 11:21 AM CDT PREPARE RBC STAT 03/24/2025 10:39 AM CDT PORTABLE/HOME SLEEP STUDY Routine 03/17/2025 1:30 PM CDT Hypersomnolence EGFR Routine 03/14/2025 11:50 AM CDT 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[place] heart without angina pectoris Pre-op evaluation DIFFERENTIAL AUTO Routine 03/14/2025 11: 50 AM CDT 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[place] heart without angina pectoris Pre-op evaluation TYPE AND SCREEN Routine 03/14/2025 11:50 AM CDT 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[place] heart without angina pectoris Pre-op evaluation CBC WITH AUTO DIFFERENTIAL Routine 03/14/2025 11:50 AM CDT 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[place] heart without angina pectoris Pre-op evaluation COMPREHENSIVE METABOLIC PANEL Routine 03/14/2025 11:50 AM CDT 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[place] heart without angina pectoris Pre-op evaluation LIPID PANEL Routine 03/14/2025 11:50 AM CDT 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[place] heart without angina pectoris Pre-op evaluation CTA CHEST W WO CONTRAST Schedule Routine, Read Routine (OP Routine) 03/14/2025 9:00 AM CDT Aneurysm of ascending aorta without rupture US CAROTIDS DUPLEX BILATERAL Schedule Routine, Read Routine (OP Routine) 03/03/2025 2:44 PM CDT Right carotid bruit TRANSTHORACIC ECHO (TTE) COMPLETE W DOPPLER/CF WO CONTRAST Routine 03/03/2025 2:12 PM CDT 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[place] heart without angina pectoris Non-rheumatic aortic stenosis from Last 3 Months Results * XR Chest 1 View - Portable - in AM (03/30/2025 5:40 AM CDT) Anatomical Region Laterality Modality Body, Chest N/A Computed Radiogr aphy 03/30/2025 11:0 0 AM CDT Impressions 03/30/2025 11:00 AM CDT FINDINGS/IMPRESSION: Cardiomegaly with left ventricular enlargement and aortic atherosclerosis and poststernotomy changes. Right central line tip in the distal SVC. Mediastinum unremarkable. There is left lower lobe atelectasis or infiltrate and pleural effusion with mildly prominent markings both perihilar region. Left upper lung and right lung otherwise clear. Electronically signed by: Tea Liu M.D. Narrative 03/30/2025 11:00 AM CDT CHEST 1 VIEW DATE: 03/30/2025 4:45 AM INDICATION: pleural effusion TECHNIQUE: AP portable upright COMPARISON: 03/29/2025 Procedure Note Tea Liu MD - 03/30/2025 CHEST 1 VIEW DATE: 03/30/2025 4:45 AM INDICATION: pleural effusion TECHNIQUE: AP portable upright COMPARISON: 03/29/2025 IMPRESSION: FINDINGS/IMPRESSION: Cardiomegaly with left ventricular enlargement and aortic atherosclerosis and poststernotomy changes. Right central line tip in the distal SVC. Mediastinum unremarkable. There is left lower lobe atelectasis or infiltrate and pleural effusion with mildly prominent markings both perihilar region. Left upper lung and right lung otherwise clear. Electronically signed by: Tea Liu M.D. Sheryl Monae NP IMG XR PROCEDURES Final Re sult * eGFR (03/30/2025 1:41 AM CDT) eGFR >90 >=60 mL/min/1. 73 m2 [...] interpretive data was last reviewed 2021. Blood 03/30/2025 1:41 AM CDT 03/30/2025 1:59 AM CDT Sheryl Monae NP LAB BLOOD ORDERABLES Final Result [facility] [address] Department [place] [address] * (ABNORMAL) CBC without differential (03/30/2025 1:41 AM CDT) [facility] WBC 8.50 3.80 - 9.90 K/cumm Hgb 11.5(L) 13.0 - 17.5 g/dL [facility] Hct 33.0(L) 38.9 - 50.3 % [facility] Plt 196 150 - 400 K/cumm [facility] MPV 9.3 9.1 - 12.3 fL [facility] RBC 3.52(L) 4.30 - 5.80 M/cumm [facility] MCV 93.8 81.3 - 96.4 fL [facility] MCH 32.7 27.1 - 33.3 pg [facility] MCHC 34.8 32.3 - 35.7 g/dL [facility] RDW CV 12.2 11.1 - 14.9 % [facility] RDW SD 42.1 35.7 - 48.1 fL [facility] NRBC abs 0.00 0.00 - 0.01 K/cumm [facility] Blood 03/30/2025 1:41 AM CDT 03/30/2025 1:59 AM CDT Sheryl Monae FIXED ASSETS ACCOUNTANT LAB BLOOD ORDERABLES Final Result [facility] [address] Department [place] [address] * (ABNORMAL) Renal function panel (03/30/2025 1:41 AM CDT) [facility] Sodium 132(L) 135 - 145 mmol/L Potassium, pl 4.1 3.3 - 4.9 mmol/L [facility] Chloride 98 97 - 110 mmol/L [facility] CO2 22 22 - 32 mmol/L [facility] Anion gap 12 2 - 15 mmol/L [facility] BUN 21 6 - 25 mg/dL [facility] Creatinine 0.75(L) 0.80 - 1.30 mg/dL [facility] Glucose 130 70 - 199 mg/dL [facility] Comment: Interpretive Data Fasting glucose >/= 126 [...] interpretive data was last revised 2022. Calcium 8.9 8.5 - 10.3 mg/dL [facility] Phosphorus, pl 3.5 2.3 - 4.5 mg/dL [facility] Albumin 3.2(L) 3.5 - 5.0 g/dL [facility] Blood 03/30/2025 1:41 AM CDT 03/30/2025 1:59 AM CDT us Sheryl Monae NP LAB BLOOD ORDERABLES Final Result [facility] [address] Department [place] [address] * XR Chest 1 View - Portable - in AM (03/29/2025 6:45 AM CDT) Anatomical Region Laterality Modality Body, Chest N/A Computed Radiogr aphy 03/29/2025 3:34 PM CDT Impressions 03/29/2025 6:32 PM CDT The current study is compared with the chest radiograph dated 03/28/2025. Median sternotomy wires are present. A right internal jugular approach central venous catheter terminates in superior vena cava. Lung volumes are small with left greater than right mild bibasilar atelectasis, unchanged. There is likely a small left pleural effusion. No pneumothorax. The cardiomediastinal silhouette is stable. Dictated by: Kem Schwab M.D. The radiology attending physician has personally reviewed this study, and had reviewed and/or edited this written report and agrees with it. Electronically signed by: Everardo Rosas M.D. Narrative 03/29/2025 6:32 PM CDT EXAM: XR CHEST 1 VIEW Procedure Note Everardo Rosas MD - 03/29/2025 EXAM: XR CHEST 1 VIEW IMPRESSION: The current study is compared with the chest radiograph dated 03/28/2025. Median sternotomy wires are present. A right internal jugular approach central venous catheter terminates in superior vena cava. Lung volumes are small with left greater than right mild bibasilar atelectasis, unchanged. There is likely a small left pleural effusion. No pneumothorax. The cardiomediastinal silhouette is stable. Dictated by: Kem Schwab M.D. The radiology attending physician has personally reviewed this study, and had reviewed and/or edited this written report and agrees with it. Electronically signed by: Everardo Rosas M.D. us Sheryl Monae NP IMG XR PROCEDURES Final Re sult * eGFR (03/29/2025 12:35 AM CDT) eGFR >90 >=60 mL/min/1. 73 m2 [...] interpretive data was last reviewed 2021. Blood 03/29/2025 12:3 5 AM CDT 03/29/2025 1:39 AM CDT Sheryl Monae NP LAB BLOOD ORDERABLES Final Result Performing Organization Address [facility] de Phone Number [facility] [address] [place] [address] * (ABNORMAL) CBC without differential (03/29/2025 12:35 AM CDT) Pathologist [facility] WBC 10.66(H) 3.80 - 9.90 K/cumm Hgb 12.7(L) 13.0 - 17.5 g/dL [facility] Hct 36.4(L) 38.9 - 50.3 % [facility] Plt 200 150 - 400 K/cumm [facility] MPV 9.3 9.1 - 12.3 fL [facility] RBC 3.84(L) 4.30 - 5.80 M/cumm [facility] MCV 94.8 81.3 - 96.4 fL [facility] MCH 33.1 27.1 - 33.3 pg [facility] MCHC 34.9 32.3 - 35.7 g/dL [facility] RDW CV 12.3 11.1 - 14.9 % [facility] RDW SD 42.7 35.7 - 48.1 fL [facility] NRBC abs 0.00 0.00 - 0.01 K/cumm [facility] Blood 03/29/2025 12:3 5 AM CDT 03/29/2025 1:41 AM CDT Sheryl Monae NP LAB BLOOD ORDERABLES Final Result Performing Organization Address [facility] Co de Phone Number [facility] [address] [place] [address] * Magnesium (03/29/2025 12:35 AM CDT) [facility] Magnesium 2.2 1.4 - 2.5 mg/dL Blood 03/29/2025 12:3 5 AM CDT 03/29/2025 1:39 AM CDT Sheryl Monae NP LAB BLOOD ORDERABLES Final Result Performing Organization Address City/[facility]/ZIP Co de Phone Number [facility] [address] [place] [address] * (ABNORMAL) Renal function panel (03/29/2025 12:35 AM CDT) [facility] Sodium 133(L) 135 - 145 mmol/L Potassium, pl 4.0 3.3 - 4.9 mmol/L [facility] Chloride 97 97 - 110 mmol/L [facility] CO2 23 22 - 32 mmol/L [facility] Anion gap 13 2 - 15 mmol/L [facility] BUN 20 6 - 25 mg/dL [facility] Creatinine 0.81 0.80 - 1.30 mg/dL [facility] Glucose 132 70 - 199 mg/dL [facility] Comment: Interpretive Data Fasting glucose >/= 126 [...] interpretive data was last revised 2022. Calcium 8.8 8.5 - 10.3 mg/dL [facility] Phosphorus, pl 3.5 2.3 - 4.5 mg/dL [facility] Albumin 3.5 3.5 - 5.0 g/dL [facility] Blood 03/29/2025 12:3 5 AM CDT 03/29/2025 1:39 AM CDT Sheryl Monae NP LAB BLOOD ORDERABLES Final Result [facility] [address] [place] [address] * Potassium (03/28/2025 6:36 PM CDT) [facility] Potassium, pl 4.0 3.3 - 4.9 mmol/L Blood 03/28/2025 6:36 PM CDT 03/28/2025 7:03 PM CDT Rae MARTINEZ LAB BLOOD ORDERABLES Fin al Result [facility] [address] Department [place] [address] * XR Chest 1 View - Portable - in AM (03/28/2025 6:45 AM CDT) Anatomical Region Laterality Modality Body, Chest N/A Computed Radiogr aphy 03/28/2025 7:52 AM CDT Impressions 03/28/2025 7:52 AM CDT Comparison to 03/27/2025. A right internal jugular central catheter tip overlies the superior vena cava. Sternal wires are intact. The heart size is unchanged. Moderate left and mild bibasilar atelectasis. Possible tiny left pleural effusion. No pneumothorax. Electronically signed by: Rudy Kunz M.D. Narrative 03/28/2025 7:52 AM CDT EXAMINATION: 1 view chest radiograph Procedure Note Rudy Kunz MD - 03/28/2025 EXAMINATION: 1 view chest radiograph IMPRESSION: Comparison to 03/27/2025. A right internal jugular central catheter tip overlies the superior vena cava. Sternal wires are intact. The heart size is unchanged. Moderate left and mild bibasilar atelectasis. Possible tiny left pleural effusion. No pneumothorax. Electronically signed by: Rudy Kunz M.D. Sheryl Monae FIXED ASSETS ACCOUNTANT IMG XR PROCEDURES Final Re sult * Prepare RBC (03/28/2025 5:32 AM CDT) [facility] Product code [id number] Unit Number [id number] [id number] [facility] Product Blood Type OPOS [facility] Dispense Status RETURNED [facility] Blood 03/28/2025 5:32 AM CDT 03/28/2025 5:32 AM CDT us Chang Aranda MD BLOOD BANK PRODUCT ORDER KATIE Final Result Performing Organization Address City/[facility] Co de Phone Number [facility] [address] Department [place], [place] [id number] * eGFR (03/28/2025 12:48 AM CDT) eGFR >90 >=60 mL/min/1. 73 m2 [...] interpretive data was last reviewed 2021. Blood 03/28/2025 12:4 8 AM CDT 03/28/2025 1:03 AM CDT us Sheryl Monae NP LAB BLOOD ORDERABLES Final Result Performing Organization Address City/[facility]/ZIP Co de Phone Number [facility] [address] Department [place], [place] [id number] * Calcium, ionized (03/28/2025 12:48 AM CDT) Calcium, Ionized 4.61 4.50 - 5.10 mg/dL Blood 03/28/2025 12:4 8 AM CDT 03/28/2025 12:54 AM CDT Sheryl Monae NP LAB BLOOD ORDERABLES Final Result Performing Organization Address [facility] Co de Phone Number [facility] [address] [place] [place] [address] * (ABNORMAL) CBC without differential (03/28/2025 12:48 AM CDT) WBC 9.84 3.80 - 9.90 K/cumm Hgb 11.2(L) 13.0 - 17.5 g/dL [facility] Hct 31.3(L) 38.9 - 50.3 % [facility] Plt 139(L) 150 - 400 K/cumm [facility] MPV 9.6 9.1 - 12.3 fL [facility] RBC 3.39(L) 4.30 - 5.80 M/cumm [facility] MCV 92.3 81.3 - 96.4 fL [facility] MCH 33.0 27.1 - 33.3 pg [facility] MCHC 35.8(H) 32.3 - 35.7 g/dL [facility] RDW CV 12.3 11.1 - 14.9 % [facility] RDW SD 41.8 35.7 - 48.1 fL [facility] NRBC abs 0.00 0.00 - 0.01 K/cumm [facility] Blood 03/28/2025 12:4 8 AM CDT 03/28/2025 1:04 AM CDT Sheryl Monae NP LAB BLOOD ORDERABLES Final Result [facility] [address] [place] [address] * Type and screen (03/28/2025 12:48 AM CDT) ABO Rh O Positive Regla, indirect Negative [facility] Blood 03/28/2025 12:4 8 AM CDT 03/28/2025 1:00 AM CDT Narrative [facility] - 03/28/2025 1:40 AM CDT Has the patient had Daratumumab or Isatuximab in the past 6 months?->Unknown Sheryl Monae FIXED ASSETS ACCOUNTANT LAB BLOOD BANK TEST ORDERA BLES Final Result Performing Organization Address [facility]/ZIP Co de Phone Number [facility] [address] [place] [address] * Magnesium (03/28/2025 12:48 AM CDT) [facility] Magnesium 2.2 1.4 - 2.5 mg/dL Blood 03/28/2025 12:4 8 AM CDT 03/28/2025 1:03 AM CDT Sheryl Monae FIXED ASSETS ACCOUNTANT LAB BLOOD ORDERABLES Final Result Performing Organization Address [facility] de Phone Number [facility] [address] [place] [address] * (ABNORMAL) Renal function panel (03/28/2025 12:48 AM CDT) Pathologist [facility] Sodium 132(L) 135 - 145 mmol/L Potassium, pl 4.0 3.3 - 4.9 mmol/L [facility] Chloride 98 97 - 110 mmol/L [facility] CO2 23 22 - 32 mmol/L [facility] Anion gap 11 2 - 15 mmol/L [facility] BUN 19 6 - 25 mg/dL [facility] Creatinine 0.76(L) 0.80 - 1.30 mg/dL [facility] Glucose 130 70 - 199 mg/dL [facility] Comment: Interpretive Data Fasting glucose >/= 126 [...] interpretive data was last revised 2022. Calcium 8.4(L) 8.5 - 10.3 mg/dL [facility] Phosphorus, pl 2.7 2.3 - 4.5 mg/dL [facility] Albumin 3.2(L) 3.5 - 5.0 g/dL [facility] Blood 03/28/2025 12:4 8 AM CDT 03/28/2025 1:03 AM CDT Sheryl Monae NP LAB BLOOD ORDERABLES Final Result Performing Organization Address [facility]/ZIP Co de Phone Number [facility] [address] [place] [address] * POCT glucose (03/27/2025 9:02 PM CDT) Glucose, POC 138 70 - 199 mg/dL Comment: For Glucose values <35 mg/dl when Hematocrit is >60 mg/dl,the test may not accurately detect significant hypoglycemia,and testing in the Laboratory should be considered if clinically indicated. Blood 03/27/2025 9:02 PM CDT 03/27/2025 9:02 PM CDT Chang Aranda MD LAB POCT ORDERABLES - DE VICE Final Result Performing Organization Address [facility]/ZIP Co de Phone Number [facility] [address] [place] [address] * POCT glucose (03/27/2025 5:02 PM CDT) Glucose, POC 136 70 - 199 mg/dL Comment: For Glucose values <35 mg/dl when Hematocrit is >60 mg/dl,the test may not accurately detect significant hypoglycemia,and testing in the Laboratory should be considered if clinically indicated. Blood 03/27/2025 5:02 PM CDT 03/27/2025 5:02 PM CDT Chang Aranda MD LAB POCT ORDERABLES - DE VICE Final Result Performing Organization Address [facility] Co de Phone Number [facility] [address] [facility] [place] [address] * POCT glucose (03/27/2025 12:19 PM CDT) Glucose, POC 145 70 - 199 mg/dL Comment: For Glucose values <35 mg/dl when Hematocrit is >60 mg/dl,the test may not accurately detect significant hypoglycemia,and testing in the Laboratory should be considered if clinically indicated. Blood 03/27/2025 12:1 9 PM CDT 03/27/2025 12:19 PM CDT Chang Aranda MD LAB POCT ORDERABLES - DE VICE Final Result Performing Organization Address [facility] Co de Phone Number [facility] [address] [facility] [place] [address] * POCT glucose (03/27/2025 8:09 AM CDT) Glucose, POC 169 70 - 199 mg/dL Comment: For Glucose values <35 mg/dl when Hematocrit is >60 mg/dl,the test may not accurately detect significant hypoglycemia,and testing in the Laboratory should be considered if clinically indicated. Blood 03/27/2025 8:09 AM CDT 03/27/2025 8:09 AM CDT Chang Aranda MD LAB POCT ORDERABLES - DE VICE Final Result Performing Organization Address [facility] Co de Phone Number [facility] [address] [place] [address] * Critical Care (03/27/2025 6:52 AM CDT) Narrative Lele Peng MD - 03/27/2025 6:52 AM CDT Lele Peng MD 03/29/2025 9:30 AM Critical Care Performed by: Sheryl Monae NP Authorized by: Sheryl Monae NP CRITICAL CARE: Team: [facility] CT Shift: AM Level of Billing: Subsequent Hospital Visit Level 3 My time spent with this patient was 45 minutes: Critical Provider Statement: I have seen and examined the patient on this day of service. I have reviewed and confirmed the history, physical exam, laboratory, and radiographic data as documented in the ICU note. I have reviewed and discussed my treatment plan with the patient's team and other medical/senior solutions workflow consultant staff. This time was in addition to and separate from care provided by other practitioners on this day of service. us Sheryl Monae NP IN CLINIC/BEDSIDE ORDERABL ES Final Result * XR Chest 1 View - Portable - in AM (03/27/2025 6:27 AM CDT) Anatomical Region Laterality Modality Body, Chest N/A Computed Radiogr aphy 03/27/2025 2:57 PM CDT Impressions 03/27/2025 3:09 PM CDT The current study is compared with the chest radiograph dated 03/26/2025. There are 3 median sternotomy wires which are aligned and intact. A right internal jugular approach central venous catheter terminates in superior vena cava. The lung volumes are small with associated bibasilar atelectasis. There may be a small left pleural effusion. No right pleural effusion. No pneumothorax. The cardiomediastinal silhouette is stable. Dictated by: Kem Schwab M.D. The radiology attending physician has personally reviewed this study, and had reviewed and/or edited this written report and agrees with it. Electronically signed by: Lynda Atkins M.D. Narrative 03/27/2025 3:09 PM CDT EXAM: XR CHEST 1 VIEW HISTORY: pleural effusion Procedure Note Lynda Atkins MD - 03/27/2025 EXAM: XR CHEST 1 VIEW HISTORY: pleural effusion IMPRESSION: The current study is compared with the chest radiograph dated 03/26/2025. There are 3 median sternotomy wires which are aligned and intact. A right internal jugular approach central venous catheter terminates in superior vena cava. The lung volumes are small with associated bibasilar atelectasis. There may be a small left pleural effusion. No right pleural effusion. No pneumothorax. The cardiomediastinal silhouette is stable. Dictated by: Kem Schwab M.D. The radiology attending physician has personally reviewed this study, and had reviewed and/or edited this written report and agrees with it. Electronically signed by: Lynda Atkins M.D. Sheryl Monae FIXED ASSETS ACCOUNTANT IMG XR PROCEDURES Final Re sult * Potassium (03/27/2025 5:12 AM CDT) Potassium, pl 4.8 3.3 - 4.9 mmol/L Blood 03/27/2025 5:12 AM CDT 03/27/2025 5:26 AM CDT Sheryl Monae NP LAB BLOOD ORDERABLES Final Result [facility] [address] Department [place] [address] * eGFR (03/27/2025 12:34 AM CDT) eGFR >90 >=60 mL/min/1. 73 m2 [...] Inclusion of Race in Diagnosing Kidney Disease, VIOLET 2020). The CKD-EPI equation should not be used for patients with unstable renal function and has not been validated in children and those over 70. Current interpretive data was last reviewed 2021. Blood 03/27/2025 12:3 4 AM CDT 03/27/2025 12:38 AM CDT Sheryl Monae FIXED ASSETS ACCOUNTANT LAB BLOOD ORDERABLES Final Result Performing Organization Address City/[facility]/ZIP Co de Phone Number [facility] [address] [facility] [place], [place] [id number] * (ABNORMAL) Calcium, ionized (03/27/2025 12:34 AM CDT) Pathologist [facility] Calcium, Ionized 4.43(L) 4.50 - 5.10 mg/dL Blood 03/27/2025 12:3 4 AM CDT 03/27/2025 12:39 AM CDT Sheryl Monae NP LAB BLOOD ORDERABLES Final Result Performing Organization Address City/[facility] Co de Phone Number [facility] [address] [facility] [place] [address] * (ABNORMAL) CBC without differential (03/27/2025 12:34 AM CDT) WBC 12.53(H) 3.80 - 9.90 K/cumm Hgb 11.7(L) 13.0 - 17.5 g/dL [facility] Hct 33.3(L) 38.9 - 50.3 % [facility] Plt 115(L) 150 - 400 K/cumm [facility] MPV 9.4 9.1 - 12.3 fL [facility] RBC 3.52(L) 4.30 - 5.80 M/cumm [facility] MCV 94.6 81.3 - 96.4 fL [facility] MCH 33.2 27.1 - 33.3 pg [facility] MCHC 35.1 32.3 - 35.7 g/dL [facility] RDW CV 12.3 11.1 - 14.9 % [facility] RDW SD 42.5 35.7 - 48.1 fL [facility] NRBC abs 0.00 0.00 - 0.01 K/cumm [facility] Blood 03/27/2025 12:3 4 AM CDT 03/27/2025 12:38 AM CDT Sheryl Monae FIXED ASSETS ACCOUNTANT LAB BLOOD ORDERABLES Final Result Performing Organization Address City/[facility]/ZIP Co de Phone Number [facility] [address] [facility] [place], [place] [id number] * Magnesium (03/27/2025 12:34 AM CDT) [facility] Magnesium 2.0 1.4 - 2.5 mg/dL Blood 03/27/2025 12:3 4 AM CDT 03/27/2025 12:38 AM CDT Sheryl Monae FIXED ASSETS ACCOUNTANT LAB BLOOD ORDERABLES Final Result Performing Organization Address [facility] de Phone Number [facility] [address] [place] [place] [address] * (ABNORMAL) Renal function panel (03/27/2025 12:34 AM CDT) Pathologist [facility] Sodium 131(L) 135 - 145 mmol/L Potassium, pl 4.0 3.3 - 4.9 mmol/L [facility] Chloride 98 97 - 110 mmol/L [facility] CO2 21(L) 22 - 32 mmol/L [facility] Anion gap 12 2 - 15 mmol/L [facility] BUN 14 6 - 25 mg/dL [facility] Creatinine 0.66(L) 0.80 - 1.30 mg/dL [facility] Glucose 134 70 - 199 mg/dL [facility] Comment: Interpretive Data Fasting glucose >/= 126 [...] interpretive data was last revised 2022. Calcium 8.6 8.5 - 10.3 mg/dL [facility] Phosphorus, pl 2.7 2.3 - 4.5 mg/dL [facility] Albumin 3.1(L) 3.5 - 5.0 g/dL [facility] Blood 03/27/2025 12:3 4 AM CDT 03/27/2025 12:38 AM CDT us Sheryl Monae NP LAB BLOOD ORDERABLES Final Result Performing Organization Address City/[facility]/ZIP Co de Phone Number [facility] [address] [place] [address] * POCT glucose (03/26/2025 9:04 PM CDT) [facility] Signature Glucose, POC 144 70 - 199 mg/dL Comment: For Glucose values <35 mg/dl when Hematocrit is >60 mg/dl,the test may not accurately detect significant hypoglycemia,and testing in the Laboratory should be considered if clinically indicated. Blood 03/26/2025 9:04 PM CDT 03/26/2025 9:04 PM CDT us Chang Aranda MD LAB POCT ORDERABLES - DE VICE Final Result [facility] [address] [place] [address] * Critical Care (03/26/2025 6:39 PM CDT) Narrative Lele Peng MD - 03/26/2025 6:39 PM CDT Lele Peng MD 03/29/2025 9:30 AM Critical Care Performed by: Jaye Peter NP Authorized by: Jaye Peter NP CRITICAL CARE: Team: [facility] CT Shift: PM Level of Billing: Subsequent Hospital Visit Level 3 My time spent with this patient was 30 minutes: Critical Provider Statement: I have seen and examined the patient on this day of service. I have reviewed and confirmed the history, physical exam, laboratory, and radiographic data as documented in the ICU note. I have reviewed and discussed my treatment plan with the patient's team and other medical/senior solutions workflow consultant staff. This time was in addition to and separate from care provided by other practitioners on this day of service. I spent time documenting in the medical record, I spent time discussing the management of this critically ill patient with consultants and the medical staff and I spent time reviewing and interpreting data from bedside monitors, laboratory results, and imaging Jaye Peter FIXED ASSETS ACCOUNTANT IN CLINIC/BEDSIDE ORDERAB LES Final Result * Potassium (03/26/2025 5:28 PM CDT) Potassium, pl 4.0 3.3 - 4.9 mmol/L Blood 03/26/2025 5:28 PM CDT 03/26/2025 5:32 PM CDT Sheryl Monae NP LAB BLOOD ORDERABLES Final Result Performing Organization Address [facility]/ZIP Co de Phone Number [facility] [address] Department [place] [address] * POCT glucose (03/26/2025 5:22 PM CDT) Glucose, POC 127 70 - 199 mg/dL Comment: For Glucose values <35 mg/dl when Hematocrit is >60 mg/dl,the test may not accurately detect significant hypoglycemia,and testing in the Laboratory should be considered if clinically indicated. Blood 03/26/2025 5:22 PM CDT 03/26/2025 5:22 PM CDT Chang Aranda MD LAB POCT ORDERABLES - DE VICE Final Result Performing Organization Address City/[facility]/ZIP Co de Phone Number [facility] [address] Department [place] [address] * Potassium (03/26/2025 11:34 AM CDT) Potassium, pl 4.1 3.3 - 4.9 mmol/L Blood 03/26/2025 11:3 4 AM CDT 03/26/2025 11:40 AM CDT Sheryl Monae NP LAB BLOOD ORDERABLES Final Result Performing Organization Address [facility]/ZIP Co de Phone Number [facility] [address] [place] [address] * POCT glucose (03/26/2025 11:30 AM CDT) Glucose, POC 132 70 - 199 mg/dL Comment: For Glucose values <35 mg/dl when Hematocrit is >60 mg/dl,the test may not accurately detect significant hypoglycemia,and testing in the Laboratory should be considered if clinically indicated. Blood 03/26/2025 11:3 0 AM CDT 03/26/2025 11:30 AM CDT Chang Aranda MD LAB POCT ORDERABLES - DE VICE Final Result Performing Organization Address [facility] Co de Phone Number [facility] [address] [place] [address] * XR Chest 1 View (03/26/2025 10:51 AM CDT) Anatomical Region Laterality Modality Body, Chest N/A Computed Radiogr aphy 03/26/2025 5:59 PM CDT Impressions 03/26/2025 5:59 PM CDT The current study is compared with the prior radiograph dated 03/25/2025 5:50 AM. 1. First examination: Right internal jugular approach catheter tip terminates at the superior cavoatrial junction. Median sternotomy wires are aligned. Small lung volumes with adjacent atelectasis. Likely small left pleural effusion. No right pleural effusion. No pneumothorax. Stable cardiomediastinal silhouette. Epicardial pacing wires. Clips in the left hemiabdomen. 2. Second examination: No significant interval changes. Electronically signed by: Freddy Urena MD Narrative 03/26/2025 5:59 PM CDT EXAMINATION: 2 chest radiographs 1. Chest one view dated 03/26/2025 5:16 AM 2. Chest one view dated 03/26/2025 10:27 AM Procedure Note Freddy Urena MD - 03/26/2025 EXAMINATION: 2 chest radiographs 1. Chest one view dated 03/26/2025 5:16 AM 2. Chest one view dated 03/26/2025 10:27 AM IMPRESSION: The current study is compared with the prior radiograph dated 03/25/2025 5:50 AM. 1. First examination: Right internal jugular approach catheter tip terminates at the superior cavoatrial junction. Median sternotomy wires are aligned. Small lung volumes with adjacent atelectasis. Likely small left pleural effusion. No right pleural effusion. No pneumothorax. Stable cardiomediastinal silhouette. Epicardial pacing wires. Clips in the left hemiabdomen. 2. Second examination: No significant interval changes. Electronically signed by: Freddy Urena MD us George Hernandez FIXED ASSETS ACCOUNTANT IMG XR PROCEDURES Final Result * POCT glucose (03/26/2025 8:16 AM CDT) [facility] Signature Glucose, POC 143 70 - 199 mg/dL Comment: For Glucose values <35 mg/dl when Hematocrit is >60 mg/dl,the test may not accurately detect significant hypoglycemia,and testing in the Laboratory should be considered if clinically indicated. Blood 03/26/2025 8:16 AM CDT 03/26/2025 8:16 AM CDT Chang Aranda MD LAB POCT ORDERABLES - DE VICE Final Result [facility] [address] Department [place] [address] * Potassium (03/26/2025 6:56 AM CDT) Potassium, pl 4.3 3.3 - 4.9 mmol/L Blood 03/26/2025 6:56 AM CDT 03/26/2025 6:56 AM CDT Sheryl Monae NP LAB BLOOD ORDERABLES Final Result [facility] [address] Department [place] [address] * Critical Care (03/26/2025 6:35 AM CDT) Narrative Lele Peng MD - 03/26/2025 6:35 AM CDT Lele Peng MD 03/29/2025 9:30 AM Critical Care Performed by: George Hernandez NP Authorized by: George Hernandez NP CRITICAL CARE: Team: [facility] CT Shift: AM Level of Billing: Subsequent Hospital Visit Level 3 My time spent with this patient was 75 minutes: Critical Provider Statement: I have seen and examined the patient on this day of service. I have reviewed and confirmed the history, physical exam, laboratory, and radiographic data as documented in the ICU note. I have reviewed and discussed my treatment plan with the patient's team and other medical/senior solutions workflow consultant staff. This time was in addition to and separate from care provided by other practitioners on this day of service. George Hernandez NP IN CLINIC/BEDSIDE ORDER KATIE Final Result * XR Chest 1 View - Portable - in AM (03/26/2025 5:54 AM CDT) Anatomical Region Laterality Modality Body, Chest N/A Computed Radiogr aphy 03/26/2025 5:59 PM CDT Impressions 03/26/2025 5:59 PM CDT The current study is compared with the prior radiograph dated 03/25/2025 5:50 AM. 1. First examination: Right internal jugular approach catheter tip terminates at the superior cavoatrial junction. Median sternotomy wires are aligned. Small lung volumes with adjacent atelectasis. Likely small left pleural effusion. No right pleural effusion. No pneumothorax. Stable cardiomediastinal silhouette. Epicardial pacing wires. Clips in the left hemiabdomen. 2. Second examination: No significant interval changes. Electronically signed by: Freddy Urena MD Narrative 03/26/2025 5:59 PM CDT EXAMINATION: 2 chest radiographs 1. Chest one view dated 03/26/2025 5:16 AM 2. Chest one view dated 03/26/2025 10:27 AM Procedure Note Freddy Urena MD - 03/26/2025 EXAMINATION: 2 chest radiographs 1. Chest one view dated 03/26/2025 5:16 AM 2. Chest one view dated 03/26/2025 10:27 AM IMPRESSION: The current study is compared with the prior radiograph dated 03/25/2025 5:50 AM. 1. First examination: Right internal jugular approach catheter tip terminates at the superior cavoatrial junction. Median sternotomy wires are aligned. Small lung volumes with adjacent atelectasis. Likely small left pleural effusion. No right pleural effusion. No pneumothorax. Stable cardiomediastinal silhouette. Epicardial pacing wires. Clips in the left hemiabdomen. 2. Second examination: No significant interval changes. Electronically signed by: Freddy Urena MD Sheryl Monae FIXED ASSETS ACCOUNTANT IMG XR PROCEDURES Final Re sult * POCT glucose (03/26/2025 3:21 AM CDT) Glucose, POC 110 70 - 199 mg/dL Comment: For Glucose values <35 mg/dl when Hematocrit is >60 mg/dl,the test may not accurately detect significant hypoglycemia,and testing in the Laboratory should be considered if clinically indicated. Blood 03/26/2025 3:21 AM CDT 03/26/2025 3:21 AM CDT us Chang Aranda MD LAB POCT ORDERABLES - DE VICE Final Result Performing Organization Address [facility] Co de Phone Number [facility] [address] [facility] [place] [address] * eGFR (03/26/2025 2:20 AM CDT) eGFR >90 >=60 mL/min/1. 73 m2 [...] interpretive data was last reviewed 2021. Blood 03/26/2025 2:20 AM CDT 03/26/2025 2:29 AM CDT us Sheryl Monae NP LAB BLOOD ORDERABLES Final Result Performing Organization Address [facility] Co de Phone Number [facility] [address] [place] [address] * Calcium, ionized (03/26/2025 2:20 AM CDT) Calcium, Ionized 4.65 4.50 - 5.10 mg/dL Blood 03/26/2025 2:20 AM CDT 03/26/2025 2:24 AM CDT Sheryl Monae NP LAB BLOOD ORDERABLES Final Result Performing Organization Address [facility] Co de Phone Number [facility] [address] [place] [address] * (ABNORMAL) CBC without differential (03/26/2025 2:20 AM CDT) WBC 14.14(H) 3.80 - 9.90 K/cumm Hgb 11.5(L) 13.0 - 17.5 g/dL [facility] Hct 32.2(L) 38.9 - 50.3 % [facility] Plt 126(L) 150 - 400 K/cumm [facility] MPV 9.5 9.1 - 12.3 fL [facility] RBC 3.32(L) 4.30 - 5.80 M/cumm [facility] MCV 97.0(H) 81.3 - 96.4 fL [facility] MCH 34.6(H) 27.1 - 33.3 pg [facility] MCHC 35.7 32.3 - 35.7 g/dL [facility] RDW CV 12.5 11.1 - 14.9 % [facility] RDW SD 44.7 35.7 - 48.1 fL [facility] NRBC abs 0.00 0.00 - 0.01 K/cumm [facility] Blood 03/26/2025 2:20 AM CDT 03/26/2025 2:29 AM CDT Sheryl Monae NP LAB BLOOD ORDERABLES Final Result Performing Organization Address [facility] Co de Phone Number [facility] [address] [place] [address] * Magnesium (03/26/2025 2:20 AM CDT) Pathologist [facility] Magnesium 2.1 1.4 - 2.5 mg/dL Blood 03/26/2025 2:20 AM CDT 03/26/2025 2:29 AM CDT Sheryl Monae NP LAB BLOOD ORDERABLES Final Result Performing Organization Address City/[facility]/ZIP Co de Phone Number [facility] [address] [place] [address] * (ABNORMAL) Renal function panel (03/26/2025 2:20 AM CDT) [facility] Sodium 132(L) 135 - 145 mmol/L Potassium, pl 4.0 3.3 - 4.9 mmol/L [facility] Chloride 102 97 - 110 mmol/L [facility] CO2 22 22 - 32 mmol/L [facility] Anion gap 8 2 - 15 mmol/L [facility] BUN 16 6 - 25 mg/dL [facility] Creatinine 0.79(L) 0.80 - 1.30 mg/dL [facility] Glucose 114 70 - 199 mg/dL [facility] Comment: Interpretive Data Fasting glucose >/= 126 [...] interpretive data was last revised 2022. Calcium 8.7 8.5 - 10.3 mg/dL [facility] Phosphorus, pl 2.9 2.3 - 4.5 mg/dL [facility] Albumin 3.1(L) 3.5 - 5.0 g/dL [facility] Blood 03/26/2025 2:20 AM CDT 03/26/2025 2:29 AM CDT Sheryl Monae NP LAB BLOOD ORDERABLES Final Result Performing Organization Address City/[facility]/ZIP Co de Phone Number [facility] [address] [place] [address] * POCT glucose (03/26/2025 12:20 AM CDT) Glucose, POC 126 70 - 199 mg/dL Comment: For Glucose values <35 mg/dl when Hematocrit is >60 mg/dl,the test may not accurately detect significant hypoglycemia,and testing in the Laboratory should be considered if clinically indicated. Blood 03/26/2025 12:2 0 AM CDT 03/26/2025 12:20 AM CDT Chang Aranda MD LAB POCT ORDERABLES - DE VICE Final Result Performing Organization Address [facility] de Phone Number [facility] [address] [facility] [place], [place] [id number] * POCT glucose (03/25/2025 11:19 PM CDT) Glucose, POC 117 70 - 199 mg/dL Comment: For Glucose values <35 mg/dl when Hematocrit is >60 mg/dl,the test may not accurately detect significant hypoglycemia,and testing in the Laboratory should be considered if clinically indicated. Blood 03/25/2025 11:1 9 PM CDT 03/25/2025 11:19 PM CDT Chang Aranda MD LAB POCT ORDERABLES - DE VICE Final Result Performing Organization Address [facility] de Phone Number [facility] [address] [facility] [address] * POCT glucose (03/25/2025 10:23 PM CDT) Glucose, POC 139 70 - 199 mg/dL Comment: For Glucose values <35 mg/dl when Hematocrit is >60 mg/dl,the test may not accurately detect significant hypoglycemia,and testing in the Laboratory should be considered if clinically indicated. Blood 03/25/2025 10:2 3 PM CDT 03/25/2025 10:23 PM CDT Chang Aranda MD LAB POCT ORDERABLES - DE VICE Final Result Performing Organization Address [facility]/ZIP Co de Phone Number [facility] [address] Department [place] [address] * POCT glucose (03/25/2025 9:22 PM CDT) Glucose, POC 131 70 - 199 mg/dL Comment: For Glucose values <35 mg/dl when Hematocrit is >60 mg/dl,the test may not accurately detect significant hypoglycemia,and testing in the Laboratory should be considered if clinically indicated. Blood 03/25/2025 9:22 PM CDT 03/25/2025 9:22 PM CDT Chang Aranda MD LAB POCT ORDERABLES - DE VICE Final Result Performing Organization Address [facility] Co de Phone Number [facility] [address] [place] [address] * POCT glucose (03/25/2025 8:05 PM CDT) Glucose, POC 133 70 - 199 mg/dL Comment: For Glucose values <35 mg/dl when Hematocrit is >60 mg/dl,the test may not accurately detect significant hypoglycemia,and testing in the Laboratory should be considered if clinically indicated. Blood 03/25/2025 8:05 PM CDT 03/25/2025 8:05 PM CDT us Chang Aranda MD LAB POCT ORDERABLES - DE VICE Final Result Performing Organization Address [facility] Co de Phone Number [facility] [address] [place] [address] * Critical Care (03/25/2025 6:52 PM CDT) Narrative Lele Peng MD - 03/25/2025 6:52 PM CDT Lele Peng MD 03/26/2025 11:13 AM Critical Care Performed by: Jaye Peter NP Authorized by: Jaye Peter NP CRITICAL CARE: Team: [facility] CT Shift: PM Level of Billing: Subsequent Hospital Visit Level 3 My time spent with this patient was 45 minutes: Critical Provider Statement: I have seen and examined the patient on this day of service. I have reviewed and confirmed the history, physical exam, laboratory, and radiographic data as documented in the ICU note. I have reviewed and discussed my treatment plan with the patient's team and other medical/senior solutions workflow consultant staff. This time was in addition to and separate from care provided by other practitioners on this day of service. I spent time documenting in the medical record, I spent time discussing the management of this critically ill patient with consultants and the medical staff and I spent time reviewing and interpreting data from bedside monitors, laboratory results, and imaging Jaye Peter FIXED ASSETS ACCOUNTANT IN CLINIC/BEDSIDE ORDERAB LES Final Result * POCT glucose (03/25/2025 6:20 PM CDT) Glucose, POC 146 70 - 199 mg/dL Comment: For Glucose values <35 mg/dl when Hematocrit is >60 mg/dl,the test may not accurately detect significant hypoglycemia,and testing in the Laboratory should be considered if clinically indicated. Blood 03/25/2025 6:20 PM CDT 03/25/2025 6:20 PM CDT Chang Aranda MD LAB POCT ORDERABLES - DE VICE Final Result Performing Organization Address [facility]/State/ZIP Co de Phone Number [facility] [address] Department [place] [address] * POCT glucose (03/25/2025 5:15 PM CDT) Glucose, POC 111 70 - 199 mg/dL Comment: For Glucose values <35 mg/dl when Hematocrit is >60 mg/dl,the test may not accurately detect significant hypoglycemia,and testing in the Laboratory should be considered if clinically indicated. Blood 03/25/2025 5:15 PM CDT 03/25/2025 5:15 PM CDT Chang Aranda MD LAB POCT ORDERABLES - DE VICE Final Result Performing Organization Address [facility] Co de Phone Number [facility] [address] [facility] [place] [address] * POCT glucose (03/25/2025 3:50 PM CDT) Glucose, POC 112 70 - 199 mg/dL Comment: For Glucose values <35 mg/dl when Hematocrit is >60 mg/dl,the test may not accurately detect significant hypoglycemia,and testing in the Laboratory should be considered if clinically indicated. Blood 03/25/2025 3:50 PM CDT 03/25/2025 3:50 PM CDT Chang Aranda MD LAB POCT ORDERABLES - DE VICE Final Result Performing Organization Address [facility] Co de Phone Number [facility] [address] [facility] [place] [address] * POCT glucose (03/25/2025 2:17 PM CDT) Glucose, POC 143 70 - 199 mg/dL Comment: For Glucose values <35 mg/dl when Hematocrit is >60 mg/dl,the test may not accurately detect significant hypoglycemia,and testing in the Laboratory should be considered if clinically indicated. Blood 03/25/2025 2:17 PM CDT 03/25/2025 2:17 PM CDT Chang Aranda MD LAB POCT ORDERABLES - DE VICE Final Result Performing Organization Address [facility] Co de Phone Number [facility] [address] [facility] [place] [address] * POCT glucose (03/25/2025 11:58 AM CDT) Glucose, POC 116 70 - 199 mg/dL Comment: For Glucose values <35 mg/dl when Hematocrit is >60 mg/dl,the test may not accurately detect significant hypoglycemia,and testing in the Laboratory should be considered if clinically indicated. Blood 03/25/2025 11:5 8 AM CDT 03/25/2025 11:58 AM CDT Chang Aranda MD LAB POCT ORDERABLES - DE VICE Final Result Performing Organization Address [facility] Co de Phone Number [facility] [address] [facility] [place], [place] [id number] * Potassium (03/25/2025 11:53 AM CDT) Potassium, pl 4.5 3.3 - 4.9 mmol/L Blood 03/25/2025 11:5 3 AM CDT 03/25/2025 12:26 PM CDT Sheryl Monae NP LAB BLOOD ORDERABLES Final Result Performing Organization Address [facility] Co de Phone Number [facility] [address] [facility] [place] [address] * POCT glucose (03/25/2025 10:59 AM CDT) Glucose, POC 115 70 - 199 mg/dL Comment: For Glucose values <35 mg/dl when Hematocrit is >60 mg/dl,the test may not accurately detect significant hypoglycemia,and testing in the Laboratory should be considered if clinically indicated. Blood 03/25/2025 10:5 9 AM CDT 03/25/2025 10:59 AM CDT Chang Aranda MD LAB POCT ORDERABLES - DE VICE Final Result Performing Organization Address [facility] Co de Phone Number [facility] [address] [facility] [place], [place] [id number] * POCT glucose (03/25/2025 10:03 AM CDT) Glucose, POC 131 70 - 199 mg/dL Comment: For Glucose values <35 mg/dl when Hematocrit is >60 mg/dl,the test may not accurately detect significant hypoglycemia,and testing in the Laboratory should be considered if clinically indicated. Blood 03/25/2025 10:0 3 AM CDT 03/25/2025 10:03 AM CDT Chang Aranda MD LAB POCT ORDERABLES - DE VICE Final Result Performing Organization Address [facility] Co de Phone Number [facility] [address] [facility] [place] [address] * POCT glucose (03/25/2025 7:49 AM CDT) [facility] Signature Glucose, POC 153 70 - 199 mg/dL Comment: For Glucose values <35 mg/dl when Hematocrit is >60 mg/dl,the test may not accurately detect significant hypoglycemia,and testing in the Laboratory should be considered if clinically indicated. Blood 03/25/2025 7:49 AM CDT 03/25/2025 7:49 AM CDT Chang Aranda MD LAB POCT ORDERABLES - DE VICE Final Result Performing Organization Address [facility] Co de Phone Number [facility] [address] [facility] [place] [address] * Critical Care (03/25/2025 6:56 AM CDT) Narrative Lele Peng MD - 03/25/2025 6:56 AM CDT Lele Peng MD 03/26/2025 11:13 AM Critical Care Performed by: George Hernandez NP Authorized by: George Hernandez NP CRITICAL CARE: Team: [facility] CT Shift: AM Level of Billing: Subsequent Hospital Visit Level 3 My time spent with this patient was 75 minutes: Critical Provider Statement: I have seen and examined the patient on this day of service. I have reviewed and confirmed the history, physical exam, laboratory, and radiographic data as documented in the ICU note. I have reviewed and discussed my treatment plan with the patient's team and other medical/senior solutions workflow consultant staff. This time was in addition to and separate from care provided by other practitioners on this day of service. us George Hernandez FIXED ASSETS ACCOUNTANT IN CLINIC/BEDSIDE ORDER KATIE Final Result * POCT glucose (03/25/2025 6:46 AM CDT) Glucose, POC 145 70 - 199 mg/dL Comment: For Glucose values <35 mg/dl when Hematocrit is >60 mg/dl,the test may not accurately detect significant hypoglycemia,and testing in the Laboratory should be considered if clinically indicated. Blood 03/25/2025 6:46 AM CDT 03/25/2025 6:46 AM CDT us Chang Aranda MD LAB POCT ORDERABLES - DE VICE Final Result [facility] [address] Department [place] [address] * XR Chest 1 View - Portable - in AM (03/25/2025 6:43 AM CDT) Anatomical Region Laterality Modality Body, Chest N/A Computed Radiogr aphy 03/25/2025 11:5 3 PM CDT Impressions 03/26/2025 7:49 AM CDT Chest radiograph 03/24/2025; CT chest 03/14/2025. Right internal jugular approach central venous catheter is seen with the tip terminating in the distal SVC. Interval removal of pulmonary arterial catheter and enteric tube. Stable positioning of mediastinal drain along the left heart border and left basilar thoracostomy catheter. Overlying cardiac monitoring wires and oxygen tubing. Low lung volumes cause crowding of the bronchovascular structures at the lung bases. Streaky opacities in the lung bases likely relate to bibasilar atelectasis. No sizable pleural effusion or pneumothorax. No focal pulmonary consolidation. Multilevel degenerative changes in the imaged spine. Mild degenerative changes at the right acromioclavicular joint. Electronically signed by: Callie Pruitt M.D. Narrative 03/26/2025 7:49 AM CDT EXAMINATION: 1 view chest radiograph Procedure Note Callie Pruitt MD - 03/26/2025 EXAMINATION: 1 view chest radiograph IMPRESSION: Chest radiograph 03/24/2025; CT chest 03/14/2025. Right internal jugular approach central venous catheter is seen with the tip terminating in the distal SVC. Interval removal of pulmonary arterial catheter and enteric tube. Stable positioning of mediastinal drain along the left heart border and left basilar thoracostomy catheter. Overlying cardiac monitoring wires and oxygen tubing. Low lung volumes cause crowding of the bronchovascular structures at the lung bases. Streaky opacities in the lung bases likely relate to bibasilar atelectasis. No sizable pleural effusion or pneumothorax. No focal pulmonary consolidation. Multilevel degenerative changes in the imaged spine. Mild degenerative changes at the right acromioclavicular joint. Electronically signed by: Callie Pruitt M.D. us Sheryl Monae FIXED ASSETS ACCOUNTANT IMG XR PROCEDURES Final Re sult * POCT glucose (03/25/2025 5:54 AM CDT) Glucose, POC 103 70 - 199 mg/dL Comment: For Glucose values <35 mg/dl when Hematocrit is >60 mg/dl,the test may not accurately detect significant hypoglycemia,and testing in the Laboratory should be considered if clinically indicated. Blood 03/25/2025 5:54 AM CDT 03/25/2025 5:54 AM CDT us Chang Aranda MD LAB POCT ORDERABLES - DE VICE Final Result [facility] [address] Department [place] [address] * POCT glucose (03/25/2025 3:51 AM CDT) Glucose, POC 148 70 - 199 mg/dL Comment: For Glucose values <35 mg/dl when Hematocrit is >60 mg/dl,the test may not accurately detect significant hypoglycemia,and testing in the Laboratory should be considered if clinically indicated. Blood 03/25/2025 3:51 AM CDT 03/25/2025 3:51 AM CDT Chang Aranda MD LAB POCT ORDERABLES - DE VICE Final Result Performing Organization Address [facility] Co de Phone Number [facility] [address] [facility] [place] [address] * POCT glucose (03/25/2025 3:02 AM CDT) Glucose, POC 152 70 - 199 mg/dL Comment: For Glucose values <35 mg/dl when Hematocrit is >60 mg/dl,the test may not accurately detect significant hypoglycemia,and testing in the Laboratory should be considered if clinically indicated. Blood 03/25/2025 3:02 AM CDT 03/25/2025 3:02 AM CDT us Chang Aranda MD LAB POCT ORDERABLES - DE VICE Final Result Performing Organization Address [facility] Co de Phone Number [facility] [address] [facility] [place] [address] * POCT glucose (03/25/2025 1:57 AM CDT) Glucose, POC 188 70 - 199 mg/dL Comment: For Glucose values <35 mg/dl when Hematocrit is >60 mg/dl,the test may not accurately detect significant hypoglycemia,and testing in the Laboratory should be considered if clinically indicated. Blood 03/25/2025 1:57 AM CDT 03/25/2025 1:57 AM CDT Chang Aranda MD LAB POCT ORDERABLES - DE VICE Final Result Performing Organization Address [facility] Co de Phone Number [facility] [address] [facility] [place] [address] * POCT glucose (03/25/2025 1:05 AM CDT) Glucose, POC 143 70 - 199 mg/dL Comment: For Glucose values <35 mg/dl when Hematocrit is >60 mg/dl,the test may not accurately detect significant hypoglycemia,and testing in the Laboratory should be considered if clinically indicated. Blood 03/25/2025 1:05 AM CDT 03/25/2025 1:05 AM CDT Chang Aranda MD LAB POCT ORDERABLES - DE VICE Final Result Performing Organization Address [facility] Co de Phone Number [facility] [address] [place] [address] * (ABNORMAL) POCT glucose (03/25/2025 12:28 AM CDT) Glucose, POC 216(H) 70 - 199 mg/dL Comment: For Glucose values <35 mg/dl when Hematocrit is >60 mg/dl,the test may not accurately detect significant hypoglycemia,and testing in the Laboratory should be considered if clinically indicated. Blood 03/25/2025 12:2 8 AM CDT 03/25/2025 12:28 AM CDT Chang Aranda MD LAB POCT ORDERABLES - DE VICE Final Result Performing Organization Address [facility] de Phone Number [facility] [address] Department [place] [address] * eGFR (03/25/2025 12:26 AM CDT) Pathologist [facility] eGFR >90 >=60 mL/min/1. 73 m2 Comment: [...] interpretive data was last reviewed 2021. Blood 03/25/2025 12:2 6 AM CDT 03/25/2025 12:49 AM CDT Sheryl Monae FIXED ASSETS ACCOUNTANT LAB BLOOD ORDERABLES Final Result Performing Organization Address City/[facility]/ZIP Co de Phone Number [facility] [address] [facility] [place], [place] [id number] * Calcium, ionized (03/25/2025 12:26 AM CDT) Calcium, Ionized 5.08 4.50 - 5.10 mg/dL Blood 03/25/2025 12:2 6 AM CDT 03/25/2025 12:39 AM CDT Sheryl Monae NP LAB BLOOD ORDERABLES Final Result Performing Organization Address City/[facility] Co de Phone Number [facility] [address] [employer] [place], [place] [id number] * (ABNORMAL) CBC without differential (03/25/2025 12:26 AM CDT) WBC 18.75(H) 3.80 - 9.90 K/cumm Hgb 13.2 13.0 - 17.5 g/dL [facility] Hct 36.9(L) 38.9 - 50.3 % [facility] Plt 139(L) 150 - 400 K/cumm [facility] MPV 9.5 9.1 - 12.3 fL [facility] RBC 3.87(L) 4.30 - 5.80 M/cumm [facility] MCV 95.3 81.3 - 96.4 fL [facility] MCH 34.1(H) 27.1 - 33.3 pg [facility] MCHC 35.8(H) 32.3 - 35.7 g/dL [facility] RDW CV 12.1 11.1 - 14.9 % [facility] RDW SD 41.9 35.7 - 48.1 fL [facility] NRBC abs 0.00 0.00 - 0.01 K/cumm [facility] Blood 03/25/2025 12:2 6 AM CDT 03/25/2025 12:49 AM CDT Sheryl Monae FIXED ASSETS ACCOUNTANT LAB BLOOD ORDERABLES Final Result [facility] [address] [facility] [place] [address] * Magnesium (03/25/2025 12:26 AM CDT) [facility] Magnesium 2.0 1.4 - 2.5 mg/dL Blood 03/25/2025 12:2 6 AM CDT 03/25/2025 12:49 AM CDT Sheryl Monae FIXED ASSETS ACCOUNTANT LAB BLOOD ORDERABLES Final Result Performing Organization Address City/[facility]/ZIP Co de Phone Number [facility] [address] [place] [employer] [place] [address] * (ABNORMAL) Renal function panel (03/25/2025 12:26 AM CDT) Pathologist [facility] Sodium 136 135 - 145 mmol/L Potassium, pl 4.3 3.3 - 4.9 mmol/L [facility] Chloride 106 97 - 110 mmol/L [facility] CO2 20(L) 22 - 32 mmol/L [facility] Anion gap 10 2 - 15 mmol/L [facility] BUN 14 6 - 25 mg/dL [facility] Creatinine 0.76(L) 0.80 - 1.30 mg/dL [facility] Glucose 226(H) 70 - 199 mg/dL [facility] Comment: Interpretive Data Fasting glucose >/= 126 [...] interpretive data was last revised 2022. Calcium 9.0 8.5 - 10.3 mg/dL [facility] Phosphorus, pl 3.2 2.3 - 4.5 mg/dL [facility] Albumin 3.6 3.5 - 5.0 g/dL [facility] Blood 03/25/2025 12:2 6 AM CDT 03/25/2025 12:49 AM CDT us Sheryl Monae NP LAB BLOOD ORDERABLES Final Result Performing Organization Address City/[facility]/ZIP Co de Phone Number [facility] [address] [employer] [place], [place] [phone] * POCT glucose (03/24/2025 11:24 PM CDT) Glucose, POC 190 70 - 199 mg/dL Comment: For Glucose values <35 mg/dl when Hematocrit is >60 mg/dl,the test may not accurately detect significant hypoglycemia,and testing in the Laboratory should be considered if clinically indicated. Blood 03/24/2025 11:2 4 PM CDT 03/24/2025 11:24 PM CDT us Chang Aranda MD LAB POCT ORDERABLES - DE VICE Final Result Performing Organization Address City/[facility]/ZIP Co de Phone Number [facility] [address] [place] [employer] [place] [address] * POCT glucose (03/24/2025 9:54 PM CDT) Glucose, POC 115 70 - 199 mg/dL Comment: For Glucose values <35 mg/dl when Hematocrit is >60 mg/dl,the test may not accurately detect significant hypoglycemia,and testing in the Laboratory should be considered if clinically indicated. Blood 03/24/2025 9:54 PM CDT 03/24/2025 9:54 PM CDT Chang Aranda MD LAB POCT ORDERABLES - DE VICE Final Result Performing Organization Address [facility] Phone Number [facility] [address] [facility] [place] [address] * POCT glucose (03/24/2025 9:06 PM CDT) Glucose, POC 139 70 - 199 mg/dL Comment: For Glucose values <35 mg/dl when Hematocrit is >60 mg/dl,the test may not accurately detect significant hypoglycemia,and testing in the Laboratory should be considered if clinically indicated. Blood 03/24/2025 9:06 PM CDT 03/24/2025 9:06 PM CDT Chang Aranda MD LAB POCT ORDERABLES - DE VICE Final Result Performing Organization Address [facility] Phone Number [facility] [address] [facility] [place] [address] * POCT glucose (03/24/2025 7:56 PM CDT) Glucose, POC 132 70 - 199 mg/dL Comment: For Glucose values <35 mg/dl when Hematocrit is >60 mg/dl,the test may not accurately detect significant hypoglycemia,and testing in the Laboratory should be considered if clinically indicated. Blood 03/24/2025 7:56 PM CDT 03/24/2025 7:56 PM CDT Chang Aranda MD LAB POCT ORDERABLES - DE VICE Final Result Performing Organization Address [facility] Co de Phone Number [facility] [address] [facility] [place], [place] [phone] * Critical Care (03/24/2025 7:04 PM CDT) Narrative Lele Peng MD - 03/24/2025 7:04 PM CDT Lele Peng MD 03/25/2025 9:14 AM Critical Care Performed by: Jaye Peter NP Authorized by: Jaye Peter NP CRITICAL CARE: Team: [facility] CT Shift: PM Level of Billing: Critical Care My time spent with this patient was 90 minutes: Critical Provider Statement: I have seen and examined the patient on this day of service. I have reviewed and confirmed the history, physical exam, laboratory and radiologic data as documented in the signed ICU note. I have reviewed and discussed my treatment plan with the ICU team and other medical/senior solutions workflow consultant staff, making frequent assessments and decisions regarding this patient's complex medical care. Critical Care time was exclusive of time spent performing separately billed procedures, treating other patients, and teaching. This time was in addition to and separate from critical care provided by other practitioners in my group on this day of service. Critical Care was necessary to treat or prevent imminent or life-threatening deterioration of the following conditions: I spent time documenting in the medical record, I spent time discussing the management of this critically ill patient with consultants and the medical staff and I spent time reviewing and interpreting data from bedside monitors, laboratory results, and imaging Jaye Peter FIXED ASSETS ACCOUNTANT IN CLINIC/BEDSIDE ORDERAB LES Final Result * XR Chest 1 View - Portable (03/24/2025 6:55 PM CDT) Anatomical Region Laterality Modality Body, Chest N/A Computed Radiogr aphy 03/24/2025 7:21 PM CDT Impressions 03/24/2025 7:21 PM CDT Prominent cardiomediastinal silhouette. Right central jugular venous catheter with its tip at the superior cavoatrial junction. Pulmonary arterial catheter with its tip projecting on to the main pulmonary artery. Changes of median sternotomy. Left chest drain. Enteric tube coursing down the esophagus with its tip below the diaphragm in the left upper quadrant. No pleural effusion. No pneumothorax. No pneumonic consolidation. Electronically signed by: Araceli Camargo M.D. Narrative 03/24/2025 7:21 PM CDT EXAMINATION: CHEST SINGLE PORTABLE VIEW DATE/TIME: 03/24/2025 6:45 PM. HISTORY: cardiac surgery COMPARISON: None available. Procedure Note Araceli Camargo MD - 03/24/2025 EXAMINATION: CHEST SINGLE PORTABLE VIEW DATE/TIME: 03/24/2025 6:45 PM. HISTORY: cardiac surgery COMPARISON: None available. IMPRESSION: Prominent cardiomediastinal silhouette. Right central jugular venous catheter with its tip at the superior cavoatrial junction. Pulmonary arterial catheter with its tip projecting on to the main pulmonary artery. Changes of median sternotomy. Left chest drain. Enteric tube coursing down the esophagus with its tip below the diaphragm in the left upper quadrant. No pleural effusion. No pneumothorax. No pneumonic consolidation. Electronically signed by: Araceli Camargo M.D. Sheryl Monae FIXED ASSETS ACCOUNTANT IMG XR PROCEDURES Final Re sult * Lactate (03/24/2025 6:48 PM CDT) Lactate 0.9 0.7 - 2.0 mmol/L Blood 03/24/2025 6:48 PM CDT 03/24/2025 6:52 PM CDT aJye ePter NP LAB BLOOD ORDERABLES Sera l Result [facility] [address] Department of Laboratories [place], [place] [phone] * eGFR (03/24/2025 6:48 PM CDT) eGFR >90 >=60 mL/min/1. 73 [...] interpretive data was last reviewed 2021. Blood 03/24/2025 6:48 PM CDT 03/24/2025 7:06 PM CDT Sheryl Monae NP LAB BLOOD ORDERABLES Final Result Performing Organization Address City/[facility]/ZIP Co de Phone Number [facility] [address] Department [place], [place] [phone] * Calcium, ionized (03/24/2025 6:48 PM CDT) Calcium, Ionized 4.68 4.50 - 5.10 mg/dL Blood 03/24/2025 6:48 PM CDT 03/24/2025 6:52 PM CDT Sheryl Monae NP LAB BLOOD ORDERABLES Final Result [facility] [address] [place] [address] * aPTT (03/24/2025 6:48 PM CDT) aPTT 28 28 - 38 sec Comment: Interpretive Data Heparin therapeutic range: 66.0 - 100.0 seconds. Range based on correlation with therapeutic heparin activity range of 0.3 - 0.7 Units/mL. Current interpretive data was last revised on 2023. Blood 03/24/2025 6:48 PM CDT 03/24/2025 7:06 PM CDT Sheryl Monae NP LAB BLOOD ORDERABLES Final Result Performing Organization Address City/[facility]/ZIP Co de Phone Number [facility] [address] [place] [address] * (ABNORMAL) Protime-INR (03/24/2025 6:48 PM CDT) PT 13.9(H) 9.7 - 13.0 sec INR 1.28(H) 0.90 - 1.20 [facility] Comment: Interpretive data Oral anticoagulant therapeutic ranges: Venous thromboembolism prophylaxis or treatment: 2.0-3.0 CARDIOLOGY Standard range: 2.0-3.0 High-intensity range: 2.5-3.5 Refer to indication-specific guidelines for appropriate target ranges for prosthetic heart valve replacement. Current interpretive data was last revised on 2019. Blood 03/24/2025 6:48 PM CDT 03/24/2025 7:06 PM CDT Sheryl Monae NP LAB BLOOD ORDERABLES Final Result Performing Organization Address City/[facility]/ZIP Co de Phone Number [facility] [address] [place] [address] * (ABNORMAL) CBC without differential (03/24/2025 6:48 PM CDT) WBC 20.30(H) 3.80 - 9.90 K/cumm Hgb 13.0 13.0 - 17.5 g/dL [facility] Hct 36.5(L) 38.9 - 50.3 % [facility] Plt 168 150 - 400 K/cumm [facility] MPV 9.5 9.1 - 12.3 fL [facility] RBC 3.91(L) 4.30 - 5.80 M/cumm [facility] MCV 93.4 81.3 - 96.4 fL [facility] MCH 33.2 27.1 - 33.3 pg [facility] MCHC 35.6 32.3 - 35.7 g/dL [facility] RDW CV 12.3 11.1 - 14.9 % [facility] RDW SD 42.3 35.7 - 48.1 fL [facility] NRBC abs 0.00 0.00 - 0.01 K/cumm [facility] Blood 03/24/2025 6:48 PM CDT 03/24/2025 7:06 PM CDT Sheryl Monae FIXED ASSETS ACCOUNTANT LAB BLOOD ORDERABLES Final Result Performing Organization Address City/[facility]/ZIP Co de Phone Number [facility] [address] [facility] [place] [address] * Phosphorus (03/24/2025 6:48 PM CDT) Pathologist [facility] Phosphorus, pl 3.9 2.3 - 4.5 mg/dL Blood 03/24/2025 6:48 PM CDT 03/24/2025 7:06 PM CDT Sheryl Monae NP LAB BLOOD ORDERABLES Final Result Performing Organization Address [facility] de Phone Number [facility] [address] [facility] [place] [address] * Magnesium (03/24/2025 6:48 PM CDT) Magnesium 2.3 1.4 - 2.5 mg/dL Blood 03/24/2025 6:48 PM CDT 03/24/2025 7:06 PM CDT Sheryl oMnae NP LAB BLOOD ORDERABLES Final Result Performing Organization Address City/[facility] de Phone Number [facility] [address] [facility] [place] [address] * (ABNORMAL) Blood gas, arterial (03/24/2025 6:48 PM CDT) pH, Art 7.32(L) 7.35 - 7.45 PCO2, Arterial 44 35 - 45 mmHg [facility] PO2, Arterial 85 83 - 108 mmHg [facility] HCO3 Art (Calculated) 23 20 - 30 mmol/L [facility] BE, art -4 mmol/L [facility] Comment: Interpretive Data No Reference Range Established Current Interpretive Data was last revised on 2017 O2 Sat Art (Calculated) 96 94 - 98 % [facility] Blood 03/24/2025 6:48 PM CDT 03/24/2025 6:52 PM CDT Sheryl Monae FIXED ASSETS ACCOUNTANT LAB BLOOD ORDERABLES Final Result [facility] [address] [place] [address] * (ABNORMAL) Basic metabolic panel (03/24/2025 6:48 PM CDT) Sodium 136 135 - 145 mmol/L Potassium, pl 4.3 3.3 - 4.9 mmol/L [facility] Chloride 105 97 - 110 mmol/L [facility] CO2 21(L) 22 - 32 mmol/L [facility] Anion gap 10 2 - 15 mmol/L [facility] BUN 12 6 - 25 mg/dL [facility] Creatinine 0.83 0.80 - 1.30 mg/dL [facility] Glucose 148 70 - 199 mg/dL [facility] Comment: Interpretive Data Fasting glucose >/= 126 [...] interpretive data was last revised 2022. Calcium 8.4(L) 8.5 - 10.3 mg/dL [facility] Blood 03/24/2025 6:48 PM CDT 03/24/2025 7:06 PM CDT Sheryl Monae NP LAB BLOOD ORDERABLES Final Result Performing Organization Address [facility] Co de Phone Number [facility] [address] [facility] [place], [place] [phone] * POCT glucose (03/24/2025 6:42 PM CDT) Glucose, POC 140 70 - 199 mg/dL Comment: For Glucose values <35 mg/dl when Hematocrit is >60 mg/dl,the test may not accurately detect significant hypoglycemia,and testing in the Laboratory should be considered if clinically indicated. Blood 03/24/2025 6:42 PM CDT 03/24/2025 6:42 PM CDT Chang Aranda MD LAB POCT ORDERABLES - DE VICE Final Result Performing Organization Address [facility] Co de Phone Number [facility] [address] [place] [employer] [place] [address] * aPTT (03/24/2025 5:47 PM CDT) Pathologist [facility] aPTT 32 28 - 38 sec Comment: Interpretive Data Heparin therapeutic range: 66.0 - 100.0 seconds. Range based on correlation with therapeutic heparin activity range of 0.3 - 0.7 Units/mL. Current interpretive data was last revised on 2023. Blood 03/24/2025 5:47 PM CDT 03/24/2025 5:47 PM CDT Chang Aranda MD LAB BLOOD ORDERABLES Fin al Result Performing Organization Address City/[facility] Co de Phone Number [facility] [address] [facility] [place], [place] [phone] * (ABNORMAL) Protime-INR (03/24/2025 5:47 PM CDT) PT 15.3(H) 9.7 - 13.0 sec INR 1.41(H) 0.90 - 1.20 [facility] Comment: Interpretive data Oral anticoagulant therapeutic ranges: Venous thromboembolism prophylaxis or treatment: 2.0-3.0 CARDIOLOGY Standard range: 2.0-3.0 High-intensity range: 2.5-3.5 Refer to indication-specific guidelines for appropriate target ranges for prosthetic heart valve replacement. Current interpretive data was last revised on 2019. Blood 03/24/2025 5:47 PM CDT 03/24/2025 5:47 PM CDT Chang Aranda MD LAB BLOOD ORDERABLES Fin al Result Performing Organization Address City/[facility] Co de Phone Number [facility] [address] [employer] [place] [address] * Fibrinogen (03/24/2025 5:47 PM CDT) Pathologist [facility] Fibrinogen 240 170 - 400 mg/dL Blood 03/24/2025 5:47 PM CDT 03/24/2025 5:47 PM CDT Chang Aranda MD LAB BLOOD ORDERABLES Fin al Result Performing Organization Address [facility] de Phone Number [facility] [address] [employer] [place] [address] * (ABNORMAL) CBC without differential (03/24/2025 5:47 PM CDT) Pathologist [facility] WBC 12.48(H) 3.80 - 9.90 K/cumm Hgb 12.1(L) 13.0 - 17.5 g/dL [facility] Hct 33.8(L) 38.9 - 50.3 % [facility] Plt 154 150 - 400 K/cumm [facility] MPV 9.4 9.1 - 12.3 fL [facility] RBC 3.56(L) 4.30 - 5.80 M/cumm [facility] MCV 94.9 81.3 - 96.4 fL [facility] MCH 34.0(H) 27.1 - 33.3 pg [facility] MCHC 35.8(H) 32.3 - 35.7 g/dL [facility] RDW CV 12.0 11.1 - 14.9 % [facility] RDW SD 41.8 35.7 - 48.1 fL [facility] NRBC abs 0.00 0.00 - 0.01 K/cumm [facility] Blood 03/24/2025 5:47 PM CDT 03/24/2025 5:47 PM CDT Chang Aranda MD LAB BLOOD ORDERABLES Fin al Result [facility] [address] [place] [address] * POC Activated Clotting Time, High Range (03/24/2025 5:31 PM CDT) [facility] ACT 124 87 - 138 sec Blood 03/24/2025 5:31 PM CDT 03/24/2025 5:31 PM CDT Chang Aranda MD LAB BLOOD ORDERABLES Fin al Result Performing Organization Address City/[facility] Co de Phone Number [facility] [address] [place] [place] [address] * (ABNORMAL) POC Blood Gas and Chemistries, Arterial - (03/24/2025 5:30 PM CDT) [facility] pH, Art POC 7.34(L) 7.35 - 7.45 pCO2, Art POC 45 35 - 45 mmHg [facility] pO2, Art POC 104 80 - 108 mmHg [facility] Na, POC 134(L) 135 - 145 mmol/L [facility] K POC 4.5 3.3 - 4.9 mmol/L [facility] Comment: Interpretive Data This method is not able to assess for hemolysis, which may falsely increase potassium concentrations. If further testing is needed to evaluate this result, consider in-laboratory plasma potassium. Current Interpretive Data was last revised on 2022. Cl, POC 103 97 - 110 mmol/L [facility] Ionized Ca, POC 4.29(L) 4.50 - 5.10 mg/dL [facility] Glucose, POC 142 70 - 199 mg/dL [facility] Lactate POC 0.9 0.7 - 2.0 mmol/L [facility] O2Hb, Art POC 96.6(H) 90.0 - 95.0 % [facility] Carboxhgb fract 1.4 0.0 - 2.9 % [facility] Methemoglobin 0.9 0.0 - 1.9 % [facility] HHb, POC 1.1 0.0 - 5.0 % [facility] SO2 (clarice) arterial 99(H) 90 - 95 % [facility] Total CO2, Art POC 26 22 - 32 mmol/L [facility] BE, art, POC -1.7 -2.0 - 2.0 mmol/L [facility] [facility] HCO3, Art POC 24 20 - 30 mmol/L [facility] Hct, POC 37.0(L) 38.9 - 50.3 % [facility] Total Hb, POC 12.4(L) 13.0 - 17.5 g/dL [facility] Blood 03/24/2025 5:30 PM CDT 03/24/2025 5:30 PM CDT Chang Aranda MD LAB POCT ORDERABLES - DE VICE Final Result [facility] [address] Department [place] [address] * POC Blood Gas and Chemistries, Venous - (03/24/2025 4:50 PM CDT) O2 Sat, Gibran POC (Clarice) 76 68 - 77 % Blood 03/24/2025 4:50 PM CDT 03/24/2025 4:50 PM CDT Chang Aranda MD LAB POCT ORDERABLES - DE VICE Final Result [facility] [address] [place] [address] * (ABNORMAL) POC Blood Gas and Chemistries, Arterial - (03/24/2025 4:48 PM CDT) pH, Art POC 7.34(L) 7.35 - 7.45 pCO2, Art POC 50(H) 35 - 45 mmHg [facility] pO2, Art POC 334(H) 80 - 108 mmHg [facility] Na, POC 133(L) 135 - 145 mmol/L [facility] K POC 4.9 3.3 - 4.9 mmol/L [facility] Comment: Interpretive Data This method is not able to assess for hemolysis, which may falsely increase potassium concentrations. If further testing is needed to evaluate this result, consider in-laboratory plasma potassium. Current Interpretive Data was last revised on 2022. Cl, POC 103 97 - 110 mmol/L [facility] Ionized Ca, POC 4.24(L) 4.50 - 5.10 mg/dL [facility] Glucose, POC 131 70 - 199 mg/dL [facility] Lactate POC 0.7 0.7 - 2.0 mmol/L [facility] O2Hb, Art POC 97.4(H) 90.0 - 95.0 % [facility] Carboxhgb fract 1.2 0.0 - 2.9 % [facility] Methemoglobin 1.3 0.0 - 1.9 % [facility] HHb, POC 0.1 0.0 - 5.0 % [facility] SO2 (clarice) arterial 100(H) 90 - 95 % [facility] Total CO2, Art POC 28 22 - 32 mmol/L [facility] BE, art, POC 0.6 -2.0 - 2.0 mmol/L [facility] HCO3, Art POC 25 20 - 30 mmol/L [facility] Hct, POC 35.0(L) 38.9 - 50.3 % [facility] Total Hb, POC 11.6(L) 13.0 - 17.5 g/dL [facility] Blood 03/24/2025 4:48 PM CDT 03/24/2025 4:48 PM CDT Chang Aranda MD LAB POCT ORDERABLES - DE VICE Final Result Performing Organization Address [facility] de Phone Number [facility] [address] [facility] [place] [address] * (ABNORMAL) POC Activated Clotting Time, High Range (03/24/2025 4:47 PM CDT) ACT 522(H) 87 - 138 sec Blood 03/24/2025 4:47 PM CDT 03/24/2025 4:47 PM CDT Chang Aranda MD LAB BLOOD ORDERABLES Fin al Result Performing Organization Address [facility] Phone Number [facility] [address] [place] [place] [address] * (ABNORMAL) POC Activated Clotting Time, High Range (03/24/2025 4:14 PM CDT) ACT 571(H) 87 - 138 sec Blood 03/24/2025 4:14 PM CDT 03/24/2025 4:14 PM CDT Chang Aranda MD LAB BLOOD ORDERABLES Fin al Result Performing Organization Address [facility] de Phone Number [facility] [address] [facility] [place] [address] * [place] AN PROCEDURE PLACEHOLDER (03/24/2025 3:39 PM CDT) Anatomical Region Laterality Modality Other Narrative 03/24/2025 3:39 PM CDT Everardo Heart MD PhD 03/24/2025 5:32 PM DRU Date/time: Staff: Supervising anesthesiologist: Everardo Heart MD PhD Performed by: Anesthesiologist: Everardo Heart MD PhD Preprocedure checklist: patient identified, procedure contraindications assessed, procedure consent, risks, benefits and alternatives discussed, monitors and equipment checked, timeout performed and DRU probe inserted into esophagus using lubricating jelly General procedure Information: Reason for procedure/indications: hemodynamic monitoring Performed: personally Procedure performed at surgeon's request: yes Results discussed with surgeon: yes Images submitted to archive: yes Patient location: OR Intubated: yes Bite blocked placed: yes Probe Insertion: easy Complications: no Probe type: adult Modalities: 2D imaging, continuous wave Doppler, pulsed wave Doppler, color Doppler and 3D imaging Billing information: Physician requesting echo: Chang Aranda MD CPT code: DRU placement and diagnostic exam, non-congenital (76935) ICD code(s) for medical necessity: R93.1 - Abnormal findings on diagnostic imaging of heart and coronary circulation Echocardiographic and doppler measurements: Ventricles: Left ventricle: Cavity size: normal Hypertrophy: No Thrombus: No Global function: normal LVEF%: normal Right ventricle: Cavity size: mildly dilated Hypertrophy: no Thrombus: No Global function: normal RVEF%: normal Interventricular septum: normal Regional function: 1- Basal anteroseptal: normal 2- Basal anterior: normal 3- Basal anterolateral: normal 4- Basal inferolateral: normal 5- Basal inferior: normal 6- Basal inferoseptal: normal 7- Mid anteroseptal: normal 8- Mid anterior: normal 9- Mid anterolateral: normal 10- Mid inferolateral: normal 11- Mid inferior: normal 12- Mid inferoseptal: normal 13- Apical anterior: normal 14- Apical lateral: normal 15- Apical inferior: normal 16- Apical septal: normal 17- [place]: normal Valves: Aortic Valve: Annulus: calcified Leaflet morphology: calcified Leaflet motion: restricted Stenosis: mild Regurgitation: none Area: 1.68 cm Peak gradient: 7 mmHg Mean gradient: 4 mmHg Mitral valve: Annulus: normal Leaflet morphology anterior: normal Leaflet morphology posterior: normal Leaflet motion anterior: normal Leaflet motion posterior: normal Stenosis: none Regurgitation: mild Tricuspid valve: Annulus: normal Leaflet motion: normal Stenosis: none Regurgitation: none Pulmonic valve: Annulus: normal Stenosis: none Regurgitation: trace Aorta: Ascending aorta: Size: dilated Diameter: 4.1 cm Dissection: no Plaque thickness(mm): 0-3 Plaque mobile: no Aortic arch: Size: normal Dissection: no Plaque thickness(mm): 0-3 Plaque mobile: no Descending aorta: Size: normal Dissection: no Plaque thickness(mm): >3 Plaque mobile: no Atria: Right atrium: Size: normal Left atrium: Size: normal (normal) Left atrial appendage: normal Interatrial septum: normal Diastolic function and other findings: Diastolic function: grade II dysfunction Pericardium: normal Left pleural effusion: none Right pleural effusion: normal Pulmonary venous flow: blunted systolic flow Pre-procedure DRU exam summary: Exam performed under general anesthesia with positive pressure ventilation. Normal LV systolic function (LVEF 61% by South's method). Normal RV systolic function (TAPSE 24.7 mm). No PFO by color Doppler. No thrombus seen in PAM (exit velocity > 40 cm/sec). Aortic valve difficult to obtain doppler gradient, however does not appear to have greater than mild stenosis (peak gradient 7 mm Hg, mean gradient 4 mm Hg, DI 0.44, MARCOS 1.69 cm2). Mild MR. Trace PI. Mildly dilated Sinus of Valsalva (4.1 cm). Pseudonormal LV diastolic dysfunction (E/e' 11). Postprocedure (follow-up) DRU exam: LV: normal systolic function RV: normal systolic function Interventricular septum: unchanged Aortic valve: unchanged Mitral valve: unchanged Pulmonic valve: unchanged Tricuspid valve: unchanged Atria: unchanged Aorta: unchanged Pericardium: unchanged Left pleural: unchanged Right pleural: unchanged Postprocedure (follow-up) DRU exam comments: S/p 1v CABG. Preserved RV/LV systolic function. Otherwise, no changes. Attestation Statement: By signing this report the attending anesthesiologist certifies that he or she has personally reviewed and interpreted the echocardiogram and has reviewed and or edited and agrees with the written comments contained within the report. us Everardo Heart MD PhD ANESTHESIA ORDERABLE S Final Result * POC Activated Clotting Time, High Range (03/24/2025 3:19 PM CDT) ACT 109 87 - 138 sec Blood 03/24/2025 3:19 PM CDT 03/24/2025 3:19 PM CDT us Chang Aranda MD LAB BLOOD ORDERABLES Fin al Result [facility] [address] [place] [address] * (ABNORMAL) POC Blood Gas and Chemistries, Arterial - (03/24/2025 3:19 PM CDT) pH, Art POC 7.39 7.35 - 7.45 pCO2, Art POC 45 35 - 45 mmHg [facility] pO2, Art POC 226(H) 80 - 108 mmHg [facility] Na, POC 133(L) 135 - 145 mmol/L [facility] K POC 3.7 3.3 - 4.9 mmol/L [facility] Comment: Interpretive Data This method is not able to assess for hemolysis, which may falsely increase potassium concentrations. If further testing is needed to evaluate this result, consider in-laboratory plasma potassium. Current Interpretive Data was last revised on 2022. Cl, POC 103 97 - 110 mmol/L [facility] Ionized Ca, POC 4.68 4.50 - 5.10 mg/dL [facility] Glucose, POC 109 70 - 199 mg/dL [facility] Lactate POC 0.6(L) 0.7 - 2.0 mmol/L [facility] O2Hb, Art POC 97.7(H) 90.0 - 95.0 % [facility] Carboxhgb fract 1.2 0.0 - 2.9 % [facility] Methemoglobin 1.0 0.0 - 1.9 % [facility] HHb, POC 0.0 0.0 - 5.0 % [facility] SO2 (clarice) arterial 100(H) 90 - 95 % [facility] Total CO2, Art POC 29 22 - 32 mmol/L [facility] BE, art, POC 1.7 -2.0 - 2.0 mmol/L [facility] HCO3, Art POC 26 20 - 30 mmol/L [facility] Hct, POC 42.0 38.9 - 50.3 % [facility] Total Hb, POC 14.0 13.0 - 17.5 g/dL [facility] Blood 03/24/2025 3:19 PM CDT 03/24/2025 3:19 PM CDT us Chang Aranda MD LAB POCT ORDERABLES - DE VICE Final Result [facility] [address] [place] [address] * [place] AN SHEATH INTRODUCER PERFORMABLE, PULMONARY ARTERY CATH, [place] AN PROCEDURE PLACEHOLDER (52:56 PM CDT) Everardo Suárez MD PhD - 03/24/2025 2:56 PM CDT Everardo Heart MD PhD 03/24/2025 3:39 PM Central Venous Line Patient location: OR Indication: central venous access and CVP monitoring Staff: Placed by: Anesthesiologist: Everardo Heart MD PhD Procedure prep: Patient position: Trendelenburg. PPE: provider hand hygiene, provider hat/mask, sterile gloves, sterile gown and full body drape. Prep solution: chlorhexadine/alcohol was applied to area. Ultrasound Evaluation: Central line: Laterality: right Site: internal jugular Catheter type: introducer sheath Catheter size: 9 Fr. Catheter length: 10 cm Technique: anatomy identified with surface landmarks, anatomy identified with ultrasound, vein located with finder needle, Seldinger technique, wire threaded easily and wire removed intact Venous verification: manometry Post insertion: all ports aspirated, all ports flushed easily, line sutured in place and occlusive dressing applied Number of attempts: 1 PA catheter placement: PA catheter type: non-oximetric PA catheter size: 7.5 Fr PA catheter laterality: right PA catheter site: internal jugular Placement guided by: pressure tracing changes PA catheter depth 50 cmNo Assessment: Events: patient tolerated procedure well with no complications us Everardo Heart MD PhD ANESTHESIA ORDERABLE S Edited Result - Final * [place] AN CENTRAL LINE QUADRUPLE LUMEN, [place] AN PROCEDURE PLACEHOLDER (03/24/2025 2:55 PM CDT) Everardo Suárez MD PhD - 03/24/2025 2:55 PM CDT Everardo Heart MD PhD 03/24/2025 3:39 PM Central Venous Line Patient location: OR Indication: central venous access and CVP monitoring Staff: Placed by: Anesthesiologist: Everardo Heart MD PhD Procedure prep: Patient position: Trendelenburg. PPE: provider hand hygiene, provider hat/mask, sterile gloves, sterile gown and full body drape. Prep solution: chlorhexadine/alcohol was applied to area. Ultrasound Evaluation: Central line: Laterality: right Site: internal jugular Catheter type: quad lumen Catheter size: 8.5 Fr. Catheter length: 16 cm Catheter length at skin: 16 cm Technique: wire threaded easily, anatomy identified with surface landmarks, anatomy identified with ultrasound, vein located with finder needle, Seldinger technique and wire removed intact Venous verification: manometry Post insertion: all ports aspirated, all ports flushed easily, line sutured in place and occlusive dressing applied Number of attempts: 1 Assessment: Events: patient tolerated procedure well with no complications us Everardo Heart MD PhD ANESTHESIA ORDERABLE S Edited Result - Final * [place] AN PROCEDURE PLACEHOLDER (03/24/2025 2:55 PM CDT) Everardo Suárez MD PhD - 03/24/2025 2:55 PM CDT Everardo Heart MD PhD 03/24/2025 2:55 PM Arterial Line Patient location: OR Indication: continuous blood pressure monitoring and blood sampling needed Staff: Supervising provider: Everardo Heart MD PhD Placed by: DRYERMAN/WOMAN: Everett Gonzalez CRNA Procedure prep: Prep solution: chlorhexadine/alcohol Prep: provider hat/mask, sterile gloves and sterile drape Arterial line: Catheter size: 20 gauge Catheter length: 1 and 3/4 inch Catheter type: wire-guided catheter Seldinger technique: yes Laterality: left Site: radial artery Line secured: Tegaderm and tape Results: good waveform and good blood return Number of attempts: 1 Assessment: Events: patient tolerated procedure well with no complications us Everardo Heart MD PhD ANESTHESIA ORDERABLE S Final Result * [place] AN ELECTIVE ENDOTRACHEAL AIRWAY, [place] AN PROCEDURE PLACEHOLDER (03/24/2025 2:55 PM CDT) Everardo Suárez MD PhD - 03/24/2025 2:55 PM CDT Everardo Heart MD PhD 03/24/2025 2:55 PM Airway Patient location: OR Urgency: elective Indications for airway management: anesthesia Difficult airway: no Staff: Supervising provider: Everardo Heart MD PhD Placed by: Anesthesiologist: Everardo Heart MD PhD Emergent airway documentation: Risks and benefits discussed: yes Consent obtained: yes Consent given by: patient Airway prep: Preoxygenated: yes Patient position: sniffing MILS maintained throughout: yes Mask difficulty assessment: 1 - vent by mask Spontaneous ventilation during airway: absent Sedation level during airway: GA Final airway details: Final airway type: endotracheal airway Tube type: ETT ETT size: 8.0 mm Cuffed: yes Technique used for successful ETT placement: video laryngoscopy Insertion site: oral Blade type: Camacho Video blade type: Benedict Blade size: 3 Cormack-Lehane (video): grade I - full view of glottis Cuff volume: 10 mL Cuff inflated with: air ETT to lips: 24 cm Placement verified by: auscultation and CO2 detection Airway secured with: silk tape Number of attempts: 1no us Everardo Heart MD PhD ANESTHESIA ORDERABLE S Final Result * DRU Add-On For OR (03/24/2025 11:37 AM CDT) BSA 2.17 m2 CONS SCIMAGE Narrative CONS SCIMAGE - 03/24/2025 11:37 AM CDT Procedure Auto Finalized by Rule: BW CV DRU DURING CASE OR Please see the Anesthesiologist's Procedure Note for the results. us Everardo Heart MD PhD CV ECHO PROCEDURES F inal Result CONS SCIMAGE * ECG 12 lead (03/24/2025 11:28 AM CDT) 03/24/2025 11:2 8 AM CDT Narrative [facility] - 03/24/2025 10:41 PM CDT Vent Rate: 54 bpm RR Interval: 1100 msec [place] Interval: 199 msec QRS Duration: 98 msec QT Interval: 415 msec QTC Interval: 401 msec P-R-T [place]: 16 - 36 - 31 degrees IMPRESSION: SINUS BRADYCARDIA PROBABLE INFERIOR MYOCARDIAL INFARCTION , PROBABLY OLD ABNORMAL ECG Electronically Signed By: Everardo Padilla MD PhD Sonya Dinh NP ECG ORDERABLES Final Result Performing Organization Address City/[facility]/ZIP Co de Phone Number [facility] * (ABNORMAL) Hemoglobin A1c (03/24/2025 11:21 AM CDT) [facility] Hgb A1C 5.9(H) 4.0 - 5.6 % Estimated Average Glucose 123 mg/dL [facility] Comment: The ADA recommends reporting an estimated Average Glucose (eAG) with all Hemoglobin A1c results using the equation derived from a study of 507 normal and diabetic adults. Minority populations were underrepresented and children were not included. (Diabetes Care 31:4376-2111, 2008). The eAG is not equivalent to a fasting glucose. Blood 03/24/2025 11:2 1 AM CDT 03/24/2025 11:26 AM CDT Sonya Dinh NP LAB BLOOD ORDERABLES Final Resul t Performing Organization Address City/[facility] Co de Phone Number [facility] [address] [place] [address] * Prepare RBC: 2 Units (03/24/2025 10:39 AM CDT) [facility] Product code [id number] Unit Number [id number] 9-* [facility] Product Blood Type OPOS [facility] Dispense Status RETURNED [facility] Product code [id number] [facility] Unit Number [id number] 1-Z [facility] Product Blood Type OPOS [facility] Dispense Status RETURNED [facility] Blood 03/24/2025 10:3 9 AM CDT Narrative [facility] - 03/28/2025 5:24 AM CDT Specify Procedure:->cabg Are special requirements needed? (All products are leukoreduced and CMV- safe)- >No Date required:-[id number] [facility] # of [id number] Reasons:-Hold for procedure (specify procedure)} Sonya Dinh NP BLOOD BANK PRODUCT ORDERABLES Fi nal Result [facility] [address] [place] [address] * Portable/Home Sleep Study (03/17/2025 1:30 PM CDT) Impressions Ajit Toribio MD - 03/17/2025 1:30 PM CDT Indication for study: Mr. Saucedo is a 74-year-old gentleman chief complaints of snoring, unrefreshing sleep and daytime fatigue and sleepiness. The patient's [place] Sleepiness scale score is 8 Vital statistics: Age: 74 years BMI: 32.5 Procedure: Unless otherwise noted, respiratory events were scored in accordance with recommended parameters outlined in the AASM Manual for the Scoring of Sleep and Associated Events, Version 2.6 Hypopneas were scored in accordance with acceptable parameters as outline in Chapter IX, Part 1: HSAT utilizing Respiratory Flow and or Effort Parameters, Category H., Section 1b. This study was performed using a Rawporter apnea Link portable monitoring unit, a type 3 portable monitoring device. Variable monitored included nasal/oral pressure transduced airflow( PTAF), single respiratory effort (thoracic belt), snoring (derived from PTAF sensor) and pulse oximetry. Description of polysomnography findings: Patient had 12 hours of monitored time. 8 hours and 8 minutes flow evaluation was present. 8 hours and 25 minutes oxygen saturation analysis was present. The apnea-hypopnea index was 41.4. The AHI was 52.4 in the supine position, and 29.6 in the nonsupine position. There were 165 obstructive apneas and 172 hypopneas recorded. Baseline oxygen saturation was 94%. Lowest oxygen saturation was 75%. Average oxygen saturation was 90%. There were total of 329 oxygen desaturation episodes recorded. The oxygen desaturation index was 39.1. 1 hour and 38 minutes oxygen saturation less than 88% documented. Pulse evaluation revealed maximum 202 beats per minute, minimum 48 beats per minute and averaging 58 beats per minute Impression: 1. Severe obstructive sleep disorder breathing 2. 1 hour and 38 minutes oxygen saturation less than 88% documented. 3. Consider Positive Airway Pressure (PAP) devices such as continuous PAP (CPAP), auto-adjusting PAP (APAP), and bi-level PAP (Bi-PAP). 4. CPAP titration to determine optimal pressure required to alleviate sleep disordered breathing 5. Sleep hygiene should be reviewed to assess factors that may improve sleep quality. 6. Weight management and regular exercise should be initiated or continued 7. Avoid alcohol sedatives and other COMMUNITY SUPPORT ASSOCIATE depression that may worsen sleep apnea and disrupt normal sleep architecture 8. Patients with sleep apnea may have significant daytime hypersomnolence. If that is the case, driving or handling heavy machinery should be avoided until the apnea and excessive sleepiness have resolved. Limitations of the study: 1. A sleep EEG was not recorded; therefore, the actual amount of time spent in sleep, stages of sleep and respiratory events associated with arousals cannot be determined by this study. 2. All indexes are computed against monitoring time, not total sleep time. For this reason, the degree of severity may be underestimated 3. The severity of the sleep apnea may vary from night to night depending on body position during sleep, REM sleep and sleep efficiency. These factors should be taken into consideration. Narrative Ajit Toribio MD - 03/17/2025 1:30 PM CDT OCST for review us Jillian Fall MD [facility] ORDERABLES F inal Result * eGFR (03/14/2025 11:50 AM CDT) eGFR >90 >=60 mL/min/1. 73 m2 [...] interpretive data was last reviewed 2021. Blood 03/14/2025 11:5 0 AM CDT 03/14/2025 12:32 PM CDT us Chang Aranda MD LAB BLOOD ORDERABLES Fin al Result [facility] [address] [place] [address] * (ABNORMAL) Differential, auto (03/14/2025 11:50 AM CDT) Neutrophil abs 6.72(H) 1.50 - 6.50 K/cumm Imm gran abs 0.09 0.00 - 0.10 K/cumm [facility] Lymphocyte abs 1.10 0.80 - 3.30 K/cumm [facility] Monocyte abs 1.02(H) 0.20 - 0.80 K/cumm [facility] Eosinophil abs 0.20 0.00 - 0.50 K/cumm [facility] Basophil abs 0.09 0.00 - 0.10 K/cumm [facility] Neutrophil pct 72.8 % [facility] Comment: Interpretive Data Percent cell count reference ranges are not reported, since discordance with absolute values may lead to misinterpretation of CBC data. Current Interpretive Data was last revised on 2017. Imm gran pct 1.0 % [facility] Comment: Interpretive Data Percent cell count reference ranges are not reported, since discordance with absolute values may lead to misinterpretation of CBC data. Current Interpretive Data was last revised on 2017. Lymphocyte pct 11.9 % [facility] Comment: Interpretive Data Percent cell count reference ranges are not reported, since discordance with absolute values may lead to misinterpretation of CBC data. Current Interpretive Data was last revised on 2017. Monocyte pct 11.1 % [facility] Comment: Interpretive Data Percent cell count reference ranges are not reported, since discordance with absolute values may lead to misinterpretation of CBC data. Current Interpretive Data was last revised on 2017. Eosinophil pct 2.2 % [facility] Comment: Interpretive Data Percent cell count reference ranges are not reported, since discordance with absolute values may lead to misinterpretation of CBC data. Current Interpretive Data was last revised on 2017. Basophil pct 1.0 % [facility] Comment: Interpretive Data Percent cell count reference ranges are not reported, since discordance with absolute values may lead to misinterpretation of CBC data. Current Interpretive Data was last revised on 2017. Blood 03/14/2025 11:5 0 AM CDT 03/14/2025 12:31 PM CDT Chang Aranda MD LAB BLOOD ORDERABLES Fin al Result [facility] [address] Department of Laboratories [place], [place] [id number] * CBC with auto differential (03/14/2025 11:50 AM CDT) WBC 9.22 3.80 - 9.90 K/cumm Hgb 16.4 13.0 - 17.5 g/dL [facility] Hct 46.4 38.9 - 50.3 % [facility] Plt 223 150 - 400 K/cumm [facility] MPV 9.6 9.1 - 12.3 fL [facility] RBC 5.02 4.30 - 5.80 M/cumm [facility] MCV 92.4 81.3 - 96.4 fL [facility] MCH 32.7 27.1 - 33.3 pg [facility] MCHC 35.3 32.3 - 35.7 g/dL [facility] RDW CV 12.4 11.1 - 14.9 % [facility] RDW SD 42.2 35.7 - 48.1 fL [facility] NRBC abs 0.00 0.00 - 0.01 K/cumm [facility] Blood 03/14/2025 11:5 0 AM CDT 03/14/2025 12:31 PM CDT Chang Aranda MD LAB BLOOD ORDERABLES Fin al Result Performing Organization Address [facility]/ZIP Co de Phone Number [facility] [address] Department of Laboratories [place], [place] [id number] * Type and screen (03/14/2025 11:50 AM CDT) Pathologist [facility] Regla, indirect Negative ABO Rh O Positive [facility] Blood 03/14/2025 11:5 0 AM CDT 03/14/2025 12:35 PM CDT Narrative [facility] - 03/14/2025 1:35 PM CDT No blood transfusions last 90 days Surgery 03/24/25 No blood transfusions last 90 days Surgery 03/24/25 Has the patient had Daratumumab or Isatuximab in the past 6 months?->No Chang Aranda MD LAB BLOOD BANK TEST ORDE RABLES Final Result Performing Organization Address [facility] Co de Phone Number [facility] [address] Department [place] [address] * Lipid panel (03/14/2025 11:50 AM CDT) [facility] Cholesterol 114 30 - 199 mg/dL Comment: Interpretive Data Ages < or = 19 years Acceptable: <170 mg/dL Borderline high: 170-199 mg/dL High: >or= 200 mg/dL Ages > or = 20 years Desirable: <200 mg/dL Borderline high: 200-239 mg/dL High: >or= 240 mg/dL Literature References: 1. Expert Panel on Integrated Guidelines for Cardiovascular Health and Risk Reduction in Children and Adolescents. Pediatrics 2011;128:S213 2. NCEP Expert Panel. Circulation 2004;110:227 Current Interpretive Data was last revised on 2018. Triglycerides 58 <=149 mg/dL [facility] Comment: Interpretive Data Ages < or = 9 years Acceptable: <75 mg/dL Borderline high: 75-99 mg/dL High: >or= 100 mg/dL Ages 10 to 20 years Acceptable: <90 mg/dL Borderline high: 90-129 mg/dL High: >or= 130 mg/dL Ages > or = 20 years Desirable: <150 mg/dL Borderline high: 150-199 mg/dL High: 200-499 mg/dL Very high: >or= 499 mg/dL Literature References: 1. Expert Panel on Integrated Guidelines for Cardiovascular Health and Risk Reduction in Children and Adolescents. Pediatrics 2011;128:S213 2. NCEP Expert Panel. Circulation 2004;110:227 Current Interpretive Data was last revised on 2018. HDL 55 >=40 mg/dL [facility] Comment: Interpretive Data Ages < or = 19 years Acceptable: >45 mg/dL Borderline low: 40-45 mg/dL Low: <40 mg/dL Ages > or = 20 years Desirable: >or= 60 mg/dL Low: <40 mg/dL Literature References: 1. Expert Panel on Integrated Guidelines for Cardiovascular Health and Risk Reduction in Children and Adolescents. Pediatrics 2011;128:S213 2. NCEP Expert Panel. Circulation 2004;110:227 Current Interpretive Data was last revised on 2018. LDL, calculated 46 <=129 mg/dL [facility] Comment: Interpretive Data Ages < or = 19 years Acceptable: <110 mg/dL Borderline high: 110-129 mg/dL High: >or= 130 mg/dL Ages > or = 20 years Optimal: <100 mg/dL Near optimal: 100-129 mg/dL Borderline high: 130-159 mg/dL High: >160 mg/dL Calculated using the Jose L LDL-C estimating equation. This equation was implemented on 2024. Prior to this date LDL-C was estimated using the Friedewald equation. Literature References: 1. Expert Panel on Integrated Guidelines for Cardiovascular Health and Risk Reduction in Children and Adolescents. Pediatrics 2011;128:S213 2. NCEP Expert Panel. Circulation 2004;110:227 3. Jose L Kramer et al. SURESH Cardiol. 2020 December 22;5(5):540-548. doi: 10.1001/[email or web address] Current Interpretive Data was last revised on 2024. Non-HDL Cholesterol 59 mg/dL [facility] Comment: Interpretive Data Ages < or = 19 years Acceptable: <120 mg/dL Borderline high: 120-144 mg/dL High: >145 mg/dL Ages > or = 20 years When triglycerides are >200 mg/dL, Non-HDL cholesterol is a secondary target of therapy with treatment goals that are 30 mg/dL greater than the LDL cholesterol target. Literature References: 1. Expert Panel on Integrated Guidelines for Cardiovascular Health and Risk Reduction in Children and Adolescents. Pediatrics 2011;128:S213 2. NCEP Expert Panel. Circulation 2004;110:227 Current Interpretive Data was last revised on 2018. Chol/HDL ratio 2 [facility] Blood 03/14/2025 11:5 0 AM CDT 03/14/2025 12:32 PM CDT us Chang Aranda MD LAB BLOOD ORDERABLES Fin al Result [facility] [address] Department [place] [address] * (ABNORMAL) Comprehensive metabolic panel (03/14/2025 11:50 AM CDT) Sodium 135 135 - 145 mmol/L Potassium, pl 4.4 3.3 - 4.9 mmol/L [facility] Chloride 96(L) 97 - 110 mmol/L [facility] CO2 27 22 - 32 mmol/L [facility] Anion gap 12 2 - 15 mmol/L [facility] BUN 15 6 - 25 mg/dL [facility] Creatinine 0.86 0.80 - 1.30 mg/dL [facility] Glucose 121 70 - 199 mg/dL [facility] Comment: Interpretive Data Fasting glucose >/= 126 [...] interpretive data was last revised 2022. Calcium 10.0 8.5 - 10.3 mg/dL [facility] Bilirubin, total 1.0 0.1 - 1.2 mg/dL [facility] Protein, pl 8.0 6.5 - 8.5 g/dL [facility] Albumin 4.6 3.5 - 5.0 g/dL [facility] Alk phos 78 40 - 130 Units/L [facility] ALT 45 7 - 55 Units/L [facility] AST 34 10 - 50 Units/L [facility] Comment:Slightly Hemolyzed S pecimen Blood 03/14/2025 11:5 0 AM CDT 03/14/2025 12:32 PM CDT us Chang Aranda MD LAB BLOOD ORDERABLES Fin al Result [facility] [address] Department [place] [address] * CT angiogram chest with and without contrast (03/14/2025 9:00 AM CDT) Anatomical Region Laterality Modality Chest N/A Computed Tomogra phy 03/14/2025 11:1 3 AM CDT Impressions 03/14/2025 11:39 AM CDT 1. Ascending aorta measuring up to 34 mm. 2. Severe three-vessel coronary artery calcifications. Dictated by: Lele Guillen MD The radiology attending physician has personally reviewed this study, and had reviewed and/or edited this written report and agrees with it. Electronically signed by: Lynda Atkins M.D. Narrative 03/14/2025 11:39 AM CDT EXAMINATION: Computed tomography of the chest without and with intravenous contrast HISTORY: Evaluate for aortic aneurysm TECHNIQUE: Transaxial computed tomographic images of the chest were obtained without and with intravenous contrast after the uneventful administration of 72 mL Opti-Ray 350 intravenous contrast according to the dissection protocol. COMPARISON: None FINDINGS: Sinus of Valsalva: Left 38 mm; right 39 mm; noncoronary 41 mm calcific to commissure Sinotubular junction: 30 x 29 mm Ascending aorta 34 x 33 mm Descending thoracic aorta 29 x 20 mm Superior manubrium is 7 mm anterior to the [solid vein. Inferior manubrium is 27 mm anterior to the ascending aorta Superior sternum is 35 mm anterior to the main pulmonary artery Inferior sternum is 30 mm anterior to the right ventricular pericardium. No calcified plaque in the ascending aorta. Mild dependent atelectasis. No pleural effusion or pneumothorax. The right heart is mildly enlarged. No pericardial effusion. There is severe three-vessel coronary artery calcifications. Mild aortic valve calcifications. No thoracic lymphadenopathy. Simple renal cysts. Duodenal diverticula. Remainder the partially imaged upper abdomen is unremarkable. No suspicious osseous lesion. Procedure Note Lynda Atkins MD - 03/14/2025 EXAMINATION: Computed tomography of the chest without and with intravenous contrast HISTORY: Evaluate for aortic aneurysm TECHNIQUE: Transaxial computed tomographic images of the chest were obtained without and with intravenous contrast after the uneventful administration of 72 mL Opti-Ray 350 intravenous contrast according to the dissection protocol. COMPARISON: None FINDINGS: Sinus of Valsalva: Left 38 mm; right 39 mm; noncoronary 41 mm calcific to commissure Sinotubular junction: 30 x 29 mm Ascending aorta 34 x 33 mm Descending thoracic aorta 29 x 20 mm Superior manubrium is 7 mm anterior to the [solid vein. Inferior manubrium is 27 mm anterior to the ascending aorta Superior sternum is 35 mm anterior to the main pulmonary artery Inferior sternum is 30 mm anterior to the right ventricular pericardium. No calcified plaque in the ascending aorta. Mild dependent atelectasis. No pleural effusion or pneumothorax. The right heart is mildly enlarged. No pericardial effusion. There is severe three-vessel coronary artery calcifications. Mild aortic valve calcifications. No thoracic lymphadenopathy. Simple renal cysts. Duodenal diverticula. Remainder the partially imaged upper abdomen is unremarkable. No suspicious osseous lesion. IMPRESSION: 1. Ascending aorta measuring up to 34 mm. 2. Severe three-vessel coronary artery calcifications. Dictated by: Lele Guillen MD The radiology attending physician has personally reviewed this study, and had reviewed and/or edited this written report and agrees with it. Electronically signed by: Lynda Atkins M.D. us Sonya Dinh FIXED ASSETS ACCOUNTANT IMG CT PROCEDURES Final Result * US Carotids Duplex Bilateral (03/03/2025 2:44 PM CDT) Anatomical Region Laterality Modality Vascular Bilateral Ultrasound 03/03/2025 2:08 PM CDT Narrative 03/03/2025 5:09 PM CDT [facility] [address] [place] [address] Carotid Duplex Ultrasound Report Patient Name: CHANG SAUCEDO L : 1950 (74y 9m) Study Date: 03/03/2025 2:08:06 PM Gender: M Wood Getter: JAYDE Location: [facility] Ref Provider: JILLIAN FALL Quality: Adequate Order Provider: JILLIAN FALL Report amended on 2025-03-04 at 15:30:19 CDT: Added/Modified: Group Carotid Report [ADDED]: [ADDED] Group Carotid Report Indications [ADDED]: [ADDED] FREE TEXT: Rt carotid bruit [ADDED] Amaurosis fugax: Amaurosis fugax [ADDED] Bruit: Bruit [ADDED] Dysphasia: Dysphasia [ADDED] Encounter for preprocedural cardiovascular examination: Encounter for preprocedural cardiovascular examination [ADDED] Encounter for surgical aftercare following surgery: Encounter for surgical aftercare following surgery on the circulatory system [ADDED] Personal history of TIA and cerebral infarction: Personal history of TIA and cerebral infarction [ADDED] Slurred Speech: Slurred Speech [ADDED] Syncope: Syncope [ADDED] Transient ischemic attack: Transient ischemic attack [ADDED] R09.89 Other specified symptoms and signs involving the circulatory and respiratory systems: R09.89 Other specified symptoms and signs involving the circulatory and respiratory systems History [ADDED]: [ADDED] Free text (Rt Click): HTN. Prostate CA. [ADDED] CEA RT: Right carotid endarterectomy. [ADDED] CEA LT: Left carotid endarterectomy. [ADDED] Stent RT: Right carotid stent. [ADDED] Stent LT: Left carotid stent. Comparisons [ADDED]: [ADDED] No Prior Exam or Change: No previous exams. [ADDED]: [ADDED] Section Right - [ADDED]: [ADDED] Section Left - Group Performing Wood Getter [ADDED]: [ADDED] Group Performing Wood Getter Group Rt Common Carotid Artery [ADDED]: [ADDED] Group Rt Common Carotid Artery Group Rt Internal Carotid Artery [ADDED]: [ADDED] Group Rt Internal Carotid Artery Group Rt External Carotid Artery [ADDED]: [ADDED] Group Rt External Carotid Artery Group Rt Vertebral Artery [ADDED]: [ADDED] Group Rt Vertebral Artery Group Lt Common Carotid Artery [ADDED]: [ADDED] Group Lt Common Carotid Artery Group Lt Internal Carotid Artery [ADDED]: [ADDED] Group Lt Internal Carotid Artery Group Lt External Carotid Artery [ADDED]: [ADDED] Group Lt External Carotid Artery Group Lt Vertebral Artery [ADDED]: [ADDED] Group Lt Vertebral Artery Group Comments [ADDED]: [ADDED] Group Comments Conclusions [ADDED]: [ADDED] Normal Bilateral ALL vessels : No evidence of hemodynamically significant disease of the bilateral extracranial carotid system. [ADDED] Normal RIGHT ALL Vessels: No evidence of hemodynamically significant disease of the right extracranial carotid system. [ADDED] Rt ICA Normal (NO PLAQUE): Normal right internal carotid artery, no evidence of significant plaque. [ADDED] Rt ICA <50% stenosis: The right internal carotid artery disease is consistent with a less than 50% stenosis. [ADDED] Rt ICA 50-69% Stenosis : The right internal carotid artery disease is consistent with moderate 50-69% stenosis. [ADDED] Rt ICA >70% Stenosis : The right internal carotid artery disease is consistent with severe, greater than 70% stenosis. [ADDED] Rt Occlusion ICA: The right internal carotid artery disease is consistent with a severe obstruction or complete occlusion. [ADDED] Right Vertebral : Normal, antegrade flow is noted in the right vertebral artery. [ADDED] Right Subclavian Steal : Retrograde flow noted in the right vertebral artery. This finding maybe consistent with subclavian steal syndrome. [ADDED] Rt ICA Stent Patent: Right internal carotid artery stent is patent. [ADDED] Rt ICA Stent >50% Restenosis: Right internal carotid artery stent with evidence of in-stent restenosis measuring greater than 50%. [ADDED] Rt ICA Stent >80% Restenosis: Right internal carotid artery stent with evidence of in-stent restenosis measuring greater than 80%. [ADDED] Normal LEFT ALL vesssels: No evidence of hemodynamically significant disease of the left extracranial carotid system. [ADDED] Lt ICA Normal (NO PLAQUE): Normal left internal carotid artery, no evidence of significant plaque. [ADDED] Lt ICA <50% stenosis: The left internal carotid artery disease is consistent with a less than 50% stenosis. [ADDED] Lt ICA 50-69% Stenosis: The left internal carotid artery disease is consistent with moderate 50-69% stenosis. [ADDED] Lt ICA >70% Stenosis : The left internal carotid artery disease is consistent with severe, greater than 70% stenosis. [ADDED] Lt Occlusion ICA: The left internal carotid artery disease is consistent with a severe obstruction or complete occlusion. [ADDED] Left Vertebral : Normal, antegrade flow is noted in the left vertebral artery. [ADDED] Left Subclavian Steal : Retrograde flow noted in the left vertebral artery. This finding maybe consistent with subclavian steal syndrome. [ADDED] Lt ICA Stent Patent: Left internal carotid artery stent is patent. [ADDED] Lt ICA Stent >50% Restenosis: Left internal carotid artery stent with evidence of in-stent restenosis measuring greater than 50%. [ADDED] Lt ICA Stent >80% Restenosis: Left internal carotid artery stent with evidence of in-stent restenosis measuring greater than 80%. [ADDED] Bilateral VERTEBRALS Normal : Normal, antegrade flow is noted in bilateral vertebral arteries. [ADDED] Free Text: Study Info [MODIFIED]: [MODIFIED] Location: [facility] [MODIFIED] Wood Getter: [MODIFIED] Ordering Physician: JILLIAN FALL Deleted: Provider Notification: [REMOVED] Free Text (Rt Click): Prelim results are entered into [facility] study notes and given to CECILY Moreno via [facility] Previously Signed by:Praful Smith MD 2025-03-03 15:59:48 CDT End of Addendum PROCEDURES: Carotid Report: Carotid duplex examination of the extracranial arteries was performed using 2D, color and spectral Doppler. INDICATIONS: Rt carotid bruit. HISTORY: HTN. Prostate CA. COMPARISONS: No previous exams. MEASUREMENTS: Right Value Left Value RT Prox CCA PSV 83 cm/sec LT Prox CCA PSV 116 cm/sec RT Prox CCA EDV 15 cm/sec LT Prox CCA EDV 14 cm/sec RT Distal CCA PSV 83 cm/sec LT Distal CCA PSV 72 cm/sec RT Distal CCA EDV 12 cm/sec LT Distal CCA EDV 13 cm/sec RT Prox ICA PSV 60 cm/sec LT Prox ICA PSV 58 cm/sec RT Prox ICA EDV 12 cm/sec LT Prox ICA EDV 10 cm/sec RT Mid ICA PSV 73 cm/sec LT Mid ICA PSV 80 cm/sec RT Mid ICA EDV 24 cm/sec LT Mid ICA EDV 19 cm/sec RT Distal ICA PSV 79 cm/sec LT Distal ICA PSV 96 cm/sec RT Distal ICA EDV 18 cm/sec LT Distal ICA EDV 22 cm/sec RT ECA Prx PSV 113 cm/sec LT ECA Prx PSV 126 cm/sec RT ICA/CCA 0.95 ratio LT ICA/CCA 1.33 ratio Rt Vert Dst PSV 38 cm/sec Lt Vert Dst PSV 52 cm/sec FINDINGS: Rt Common Carotid Artery: The plaque in the right CCA appears to be homogenous. Rt Internal Carotid Artery: The plaque in the right internal carotid artery appears to be heterogeneous and smooth. Atherosclerotic changes of the right internal carotid artery without hemodynamically significant Doppler findings. <50% stenosis. Rt External Carotid Artery: Patent right external carotid artery with evidence of atherosclerotic disease present. Rt Vertebral Artery: The right vertebral artery is patent with antegrade flow. Lt Common Carotid Artery: The plaque in the left CCA appears to be heterogeneous. Lt Internal Carotid Artery: The plaque in the left internal carotid artery appears to be heterogeneous and irregular. Atherosclerotic changes of the left internal carotid artery without hemodynamically significant Doppler findings. <50% stenosis. Tortuous mid to distal. Lt External Carotid Artery: Patent left external carotid artery with evidence of atherosclerotic disease present. Lt Vertebral Artery: The left vertebral artery is patent with antegrade flow. Comments: Brachial artery systolic blood pressure is 128 on the right, 140 on the left. CONCLUSIONS: 1. No evidence of hemodynamically significant disease of the bilateral extracranial carotid system. 2. Normal, antegrade flow is noted in bilateral vertebral arteries. ATTESTATION: I have reviewed and interpreted the pertinent images and measurements of this study. I attest to the conclusions in the final report that is provided above. Electronically Signed By: Praful Smith MD 2025-03-03 15:59:48 CDT Electronically Amended By: Praful Smith MD 03/04/2025 3:30:19 PM CDT [ADDENDUM] Procedure Note Praful Smith MD - 03/04/2025 [facility] [address] [place] [address] Carotid Duplex Ultrasound Report Patient Name: CHANG SAUCEDO L : 1950 (74y 9m) Study Date: 03/03/2025 2:08:06 PM Gender: M Wood Getter: Location: [facility] Provider: JILLIAN FALL Quality: Adequate Order Provider: JILLIAN FALL Report amended on 2025-03-04 at 15:30:19 CDT: Added/Modified: Group Carotid Report [ADDED]: [ADDED] Group Carotid Report Indications [ADDED]: [ADDED] FREE TEXT: Rt carotid bruit [ADDED] Amaurosis fugax: Amaurosis fugax [ADDED] Bruit: Bruit [ADDED] Dysphasia: Dysphasia [ADDED] Encounter for preprocedural cardiovascular examination: Encounterfor preprocedural cardiovascular examination [ADDED] Encounter for surgical aftercare following surgery: Encounter forsurgical aftercare following surgery on the circulatory system [ADDED] Personal history of TIA and cerebral infarction: Personal historyof TIA and cerebral infarction [ADDED] Slurred Speech: Slurred Speech [ADDED] Syncope: Syncope [ADDED] Transient ischemic attack: Transient ischemic attack [ADDED] R09.89 Other specified symptoms and signs involving thecirculatory and respiratory systems: R09.89 Other specified symptoms and signs involvingthe circulatory and respiratory systems History [ADDED]: [ADDED] Free text (Rt Click): HTN. Prostate CA. [ADDED] CEA RT: Right carotid endarterectomy. [ADDED] CEA LT: Left carotid endarterectomy. [ADDED] Stent RT: Right carotid stent. [ADDED] Stent LT: Left carotid stent. Comparisons [ADDED]: [ADDED] No Prior Exam or Change: No previous exams. [ADDED]: [ADDED] Section Right - [ADDED]: [ADDED] Section Left - Group Performing Wood Getter [ADDED]: [ADDED] Group Performing Wood Getter Group Rt Common Carotid Artery [ADDED]: [ADDED] Group Rt Common Carotid Artery Group Rt Internal Carotid Artery [ADDED]: [ADDED] Group Rt Internal Carotid Artery Group Rt External Carotid Artery [ADDED]: [ADDED] Group Rt External Carotid Artery Group Rt Vertebral Artery [ADDED]: [ADDED] Group Rt Vertebral Artery Group Lt Common Carotid Artery [ADDED]: [ADDED] Group Lt Common Carotid Artery Group Lt Internal Carotid Artery [ADDED]: [ADDED] Group Lt Internal Carotid Artery Group Lt External Carotid Artery [ADDED]: [ADDED] Group Lt External Carotid Artery Group Lt Vertebral Artery [ADDED]: [ADDED] Group Lt Vertebral Artery Group Comments [ADDED]: [ADDED] Group Comments Conclusions [ADDED]: [ADDED] Normal Bilateral ALL vessels : No evidence of hemodynamicallysignificant disease of the bilateral extracranial carotid system. [ADDED] Normal RIGHT ALL Vessels: No evidence of hemodynamicallysignificant disease of the right extracranial carotid system. [ADDED] Rt ICA Normal (NO PLAQUE): Normal right internal carotid artery,no evidence of significant plaque. [ADDED] Rt ICA <50% stenosis: The right internal carotid artery disease isconsistent with a less than 50% stenosis. [ADDED] Rt ICA 50-69% Stenosis : The right internal carotid artery diseaseis consistent with moderate 50-69% stenosis. [ADDED] Rt ICA >70% Stenosis : The right internal carotid artery diseaseis consistent with severe, greater than 70% stenosis. [ADDED] Rt Occlusion ICA: The right internal carotid artery disease isconsistent with a severe obstruction or complete occlusion. [ADDED] Right Vertebral : Normal, antegrade flow is noted in the rightvertebral artery. [ADDED] Right Subclavian Steal : Retrograde flow noted in the rightvertebral artery. This finding maybe consistent with subclavian steal syndrome. [ADDED] Rt ICA Stent Patent: Right internal carotid artery stent ispatent. [ADDED] Rt ICA Stent >50% Restenosis: Right internal carotid artery stentwith evidence of in-stent restenosis measuring greater than 50%. [ADDED] Rt ICA Stent >80% Restenosis: Right internal carotid artery stentwith evidence of in-stent restenosis measuring greater than 80%. [ADDED] Normal LEFT ALL vesssels: No evidence of hemodynamicallysignificant disease of the left extracranial carotid system. [ADDED] Lt ICA Normal (NO PLAQUE): Normal left internal carotid artery, noevidence of significant plaque. [ADDED] Lt ICA <50% stenosis: The left internal carotid artery disease isconsistent with a less than 50% stenosis. [ADDED] Lt ICA 50-69% Stenosis: The left internal carotid artery diseaseis consistent with moderate 50-69% stenosis. [ADDED] Lt ICA >70% Stenosis : The left internal carotid artery disease isconsistent with severe, greater than 70% stenosis. [ADDED] Lt Occlusion ICA: The left internal carotid artery disease isconsistent with a severe obstruction or complete occlusion. [ADDED] Left Vertebral : Normal, antegrade flow is noted in the leftvertebral artery. [ADDED] Left Subclavian Steal : Retrograde flow noted in the leftvertebral artery. This finding maybe consistent with subclavian steal syndrome. [ADDED] Lt ICA Stent Patent: Left internal carotid artery stent ispatent. [ADDED] Lt ICA Stent >50% Restenosis: Left internal carotid artery stentwith evidence of in-stent restenosis measuring greater than 50%. [ADDED] Lt ICA Stent >80% Restenosis: Left internal carotid artery stentwith evidence of in-stent restenosis measuring greater than 80%. [ADDED] Bilateral VERTEBRALS Normal : Normal, antegrade flow is noted inbilateral vertebral arteries. [ADDED] Free Text: Study Info [MODIFIED]: [MODIFIED] Location: [facility] [MODIFIED] Wood Getter: [MODIFIED] Ordering Physician: JILLIAN FALL Deleted: Provider Notification: [REMOVED] Free Text (Rt Click): Prelim results are entered into [facility] studynotes and given to CECILY Moreno via [facility] Previously Signed by:Praful Smith MD 2025-03-03 15:59:48 CDT End of Addendum PROCEDURES: Carotid Report: Carotid duplex examination of the extracranial arterieswas performed using 2D, color and spectral Doppler. INDICATIONS: Rt carotid bruit. HISTORY: HTN. Prostate CA. COMPARISONS: No previous exams. MEASUREMENTS: Right Value Left Value RT Prox CCA PSV 83 cm/sec LT Prox CCA PSV 116 cm/sec RT Prox CCA EDV 15 cm/sec LT Prox CCA EDV 14 cm/sec RT Distal CCA PSV 83 cm/sec LT Distal CCA PSV 72 cm/sec RT Distal CCA EDV 12 cm/sec LT Distal CCA EDV 13 cm/sec RT Prox ICA PSV 60 cm/sec LT Prox ICA PSV 58 cm/sec RT Prox ICA EDV 12 cm/sec LT Prox ICA EDV 10 cm/sec RT Mid ICA PSV 73 cm/sec LT Mid ICA PSV 80 cm/sec RT Mid ICA EDV 24 cm/sec LT Mid ICA EDV 19 cm/sec RT Distal ICA PSV 79 cm/sec LT Distal ICA PSV 96 cm/sec RT Distal ICA EDV 18 cm/sec LT Distal ICA EDV 22 cm/sec RT ECA Prx PSV 113 cm/sec LT ECA Prx PSV 126 cm/sec RT ICA/CCA 0.95 ratio LT ICA/CCA 1.33 ratio Rt Vert Dst PSV 38 cm/sec Lt Vert Dst PSV 52 cm/sec FINDINGS: Rt Common Carotid Artery: The plaque in the right CCA appears to behomogenous. Rt Internal Carotid Artery: The plaque in the right internal carotidartery appears to be heterogeneous and smooth. Atherosclerotic changes of the right internalcarotid artery without hemodynamically significant Doppler findings. <50% stenosis. Rt External Carotid Artery: Patent right external carotid artery withevidence of atherosclerotic disease present. Rt Vertebral Artery: The right vertebral artery is patent with antegradeflow. Lt Common Carotid Artery: The plaque in the left CCA appears to beheterogeneous. Lt Internal Carotid Artery: The plaque in the left internal carotid arteryappears to be heterogeneous and irregular. Atherosclerotic changes of the left internalcarotid artery without hemodynamically significant Doppler findings. <50% stenosis.Tortuous mid to distal. Lt External Carotid Artery: Patent left external carotid artery withevidence of atherosclerotic disease present. Lt Vertebral Artery: The left vertebral artery is patent with antegradeflow. Comments: Brachial artery systolic blood pressure is 128 on the right, 140on the left. CONCLUSIONS: 1. No evidence of hemodynamically significant disease of the bilateralextracranial carotid system. 2. Normal, antegrade flow is noted in bilateral vertebral arteries. ATTESTATION: I have reviewed and interpreted the pertinent images and measurements ofthis study. I attest to the conclusions in the final report that is provided above. Electronically Signed By: Praful Smith MD 2025-03-03 15:59:48 CDT Electronically Amended By: Praful Smith MD 03/04/2025 3:30:19 PM CDT [ADDENDUM] us Jillian Fall MD [facility] US PROCEDURES Edited Result - Final * TRANSTHORACIC ECHO (TTE) COMPLETE W DOPPLER/CF WO CONTRAST (03/03/2025 2:12 PM CDT) Estimated EF 65-70 % CONS SCIMAGE EF Mod BP 64 % CONS SCIMAGE Anatomical Region Laterality Modality Ultrasound 03/03/2025 1:39 PM CDT Narrative 03/03/2025 5:01 PM CDT [facility] Cardiology [address], [address], [place] [address] P:[phone] P:[phone] Echocardiographic Report Patient Name: CHANG SAUCEDO L : 1950 Study Date: 03/03/2025 1:39:57 PM Gender: M Wood Getter: ENRIQUE Location: [facility] Ref Provider: JILLIAN FALL Height(Cm): 173 BSA: 2.16 Weight(Kg): 97.1 Heart Rate: 63 BP: 136 / 70 Quality: Good Order Provider: JILLIAN FALL PROCEDURES: Echocardiographic Report: Transthoracic echocardiogram with complete 2D, M-Mode, and color Doppler examination. With Strain Analysis. INDICATIONS: I25.10 Atherosclerotic heart disease of [place] coronary artery without angina pectoris and I35.0 Nonrheumatic aortic (valve) stenosis. MEASUREMENTS: 2D/MM Value Range Doppler Value Range EF Mod BP 64 % [ 52 - 72 ] MARCOS Vmax 1.48 cm2 [ 2.00 - 4.00 ] EF Teich MM 71 % [ 52 - 72 ] AV Mean PG 13 mmHg Estimated EF 65-70 % AV Peak Olvin 2.42 m/s [ 1.00 - 1.70 ] LV GLS -15.61 % AV Peak PG 23 mmHg LVIDd 2D 5.20 cm [ 4.20 - 5.80 ] AV VTI 50.99 cm LVIDd MM 4.87 cm [ 4.20 - 5.80 ] LVOT Diam 2.09 cm [ 1.70 - 2.10 ] LVIDs 2D 2.97 cm [ 2.50 - 4.00 ] LVOT Peak Olvin 1.05 m/s [ 0.70 - 1.10 ] LVIDs MM 2.92 cm [ 2.50 - 4.00 ] LVOT VTI 26.83 cm LVPWd 2D 1.25 cm [ 0.60 - 1.00 ] MV E Peak Olvin 0.67 m/s [ 0.60 - 1.30 ] LVPWd MM 1.01 cm [ 0.60 - 1.00 ] MV A Peak Olvin 0.80 m/s [ 1.00 - 1.20 ] IVSd 2D 1.15 cm [ 0.60 - 1.00 ] MV Decel Time 248 msec [ 104 - 258 ] IVSd MM 1.37 cm [ 0.60 - 1.00 ] PV Peak Olvin 1.12 m/s [ 0.40 - 0.80 ] LA Dimension MM 4.79 cm [ 3.00 - 4.00 ] TR Peak Olvin 2.59 m/s [ 1.00 - 2.80 ] AoR Diam MM 4.51 cm [ 3.10 - 3.70 ] TR Peak PG 27 mmHg LA Volume 39.95 ml [ 18.00 - 58.00 ] RV S` 0.17 m/s LA Volume Index 19 cc/m2 [ 16 - 28 ] Lateral E` 0.04 m/s [ 0.10 - 0.15 ] RA Volume 26.24 ml Septal E` 0.05 m/s [ 0.08 - 0.15 ] E` 0.05 m/s E/E` 14 Tapse 2.20 cm [ 1.71 - 5.00 ] 2D/MM Value Range Doppler Value Range - FINDINGS: Interpretation Site: Exam was interpreted at [facility]. Left Ventricle: Normal left ventricular systolic function. No focal wall motion abnormalities. Normal left ventricular size. Mild concentric left ventricular hypertrophy. Impaired diastolic relaxation Grade I. Ejection fraction is measured at 64 %. Ejection Fraction is visually estimated to be 65-70 %. Global Longitudinal Strain is -16 %. GLS is borderline. Right Ventricle: Normal right ventricular systolic function. Mild enlargement of right ventricle. Left Atrium: There is mild enlargement of left atrium. Right Atrium: The right atrium is normal in size. Atrial Septum: Normal atrial septum. Mitral Valve: Mitral valve leaflets appear mildly thickened. Mild mitral valve regurgitation. There is no hemodynamically significant mitral stenosis by Doppler. Aortic Valve: Mild aortic stenosis. Peak Velocity of 2.42 m/s. Peak gradient of 23.0 mmHg. Mean gradient of 13.0 mmHg. Valve area of 1.5 cm2. Aortic cusps appear moderately calcified. Trileaflet aortic valve. Trace aortic valve regurgitation. Tricuspid Valve: Normal appearance of the tricuspid valve. Normal right ventricular systolic pressure. Estimated peak RVSP is 30-35 mmHg. Mild tricuspid regurgitation. Pulmonic Valve: Normal appearance of the pulmonic valve. No pulmonic stenosis. Moderate pulmonic regurgitation. Pericardium: Normal pericardium with no significant pericardial effusion. Aorta: Sinus of Valsalva is dilated. Sinus of Valsalva 4.5 cm. IVC: Normal size and normal respiratory collapse consistent with normal right atrial pressure (<5 mmHg). CONCLUSIONS: Normal left ventricular systolic function. No focal wall motion abnormalities. Normal left ventricular size. Mild concentric left ventricular hypertrophy. Impaired diastolic relaxation Grade I. Ejection fraction is measured at 64 %. Ejection Fraction is visually estimated to be 65-70 %. Global Longitudinal Strain is -16 %. GLS is borderline. Normal right ventricular systolic function. Mild enlargement of right ventricle. There is mild enlargement of left atrium. Mitral valve leaflets appear mildly thickened. Mild mitral valve regurgitation. Mild aortic stenosis. Peak Velocity of 2.42 m/s. Peak gradient of 23.0 mmHg. Mean gradient of 13.0 mmHg. Valve area of 1.5 cm2. Aortic cusps appear moderately calcified. Mild tricuspid regurgitation. Moderate pulmonic regurgitation. Sinus of Valsalva is dilated. Sinus of Valsalva 4.5 cm. Normal sinus rhythm. Electronically Signed By: Jillian Fall MD 03/03/2025 5:00:24 PM CDT Procedure Note Jillian Fall MD - 03/03/2025 [facility] Cardiology [address], [address], [place] [address] P:[phone] P:[phone] Echocardiographic Report Patient Name: CHANG SAUCEDO L : 1950 Study Date: 03/03/2025 1:39:57 PM Gender: M Wood Getter: ENRIQUE Location: [facility] Ref Provider: JILLIAN FALL Height(Cm): 173 BSA: 2.16 Weight(Kg): 97.1 Heart Rate: 63 BP: 136 / 70 Quality: Good Order Provider: JILLIAN FALL PROCEDURES: Echocardiographic Report: Transthoracic echocardiogram with complete 2D, M-Mode, and color Dopplerexamination. With Strain Analysis. 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 MEASUREMENTS: 2D/MM Value Range Doppler ValueRange EF Mod BP 64 % [ 52 - 72 ] MARCOS Vmax 1.48cm2 [ 2.00 - 4.00 ] EF Teich MM 71 % [ 52 - 72 ] AV Mean PG 13mmHg Estimated EF 65-70 % AV Peak Olvin 2.42m/s [ 1.00 - 1.70 ] LV GLS -15.61 % AV Peak PG 23mmHg LVIDd 2D 5.20 cm [ 4.20 - 5.80 ] AV VTI 50.99cm LVIDd MM 4.87 cm [ 4.20 - 5.80 ] LVOT Diam 2.09cm [ 1.70 - 2.10 ] LVIDs 2D 2.97 cm [ 2.50 - 4.00 ] LVOT Peak Olvin 1.05m/s [ 0.70 - 1.10 ] LVIDs MM 2.92 cm [ 2.50 - 4.00 ] LVOT VTI 26.83cm LVPWd 2D 1.25 cm [ 0.60 - 1.00 ] MV E Peak Olvin 0.67m/s [ 0.60 - 1.30 ] LVPWd MM 1.01 cm [ 0.60 - 1.00 ] MV A Peak Olvin 0.80m/s [ 1.00 - 1.20 ] IVSd 2D 1.15 cm [ 0.60 - 1.00 ] MV Decel Time 248msec [ 104 - 258 ] IVSd MM 1.37 cm [ 0.60 - 1.00 ] PV Peak Olvin 1.12m/s [ 0.40 - 0.80 ] LA Dimension MM 4.79 cm [ 3.00 - 4.00 ] TR Peak Olvin 2.59m/s [ 1.00 - 2.80 ] AoR Diam MM 4.51 cm [ 3.10 - 3.70 ] TR Peak PG 27mmHg LA Volume 39.95 ml [ 18.00 - 58.00 ] RV S` 0.17m/s LA Volume Index 19 cc/m2 [ 16 - 28 ] Lateral E` 0.04m/s [ 0.10 - 0.15 ] RA Volume 26.24 ml Septal E` 0.05m/s [ 0.08 - 0.15 ] E` 0.05 m/s E/E` 14 Tapse 2.20 cm [ 1.71 - 5.00 ] 2D/MM Value Range Doppler ValueRange - FINDINGS: Interpretation Site: Exam was interpreted at [facility]. Left Ventricle: Normal left ventricular systolic function. No focal wall motionabnormalities. Normal left ventricular size. Mild concentric left ventricular hypertrophy.Impaired diastolic relaxation Grade I. Ejection fraction is measured at 64 %. EjectionFraction is visually estimated to be 65-70 %. Global Longitudinal Strain is -16 %. GLS isborderline. Right Ventricle: Normal right ventricular systolic function. Mild enlargement of rightventricle. Left Atrium: There is mild enlargement of left atrium. Right Atrium: The right atrium is normal in size. Atrial Septum: Normal atrial septum. Mitral Valve: Mitral valve leaflets appear mildly thickened. Mild mitral valveregurgitation. There is no hemodynamically significant mitral stenosis by Doppler. Aortic Valve: Mild aortic stenosis. Peak Velocity of 2.42 m/s. Peak gradient of 23.0mmHg. Mean gradient of 13.0 mmHg. Valve area of 1.5 cm2. Aortic cusps appearmoderately calcified. Trileaflet aortic valve. Trace aortic valve regurgitation. Tricuspid Valve: Normal appearance of the tricuspid valve. Normal right ventricularsystolic pressure. Estimated peak RVSP is 30-35 mmHg. Mild tricuspid regurgitation. Pulmonic Valve: Normal appearance of the pulmonic valve. No pulmonic stenosis. Moderatepulmonic regurgitation. Pericardium: Normal pericardium with no significant pericardial effusion. Aorta: Sinus of Valsalva is dilated. Sinus of Valsalva 4.5 cm. IVC: Normal size and normal respiratory collapse consistent with normal rightatrial pressure (<5 mmHg). CONCLUSIONS: Normal left ventricular systolic function. No focal wall motionabnormalities. Normal left ventricular size. Mild concentric left ventricular hypertrophy.Impaired diastolic relaxation Grade I. Ejection fraction is measured at 64 %. EjectionFraction is visually estimated to be 65-70 %. Global Longitudinal Strain is -16 %. GLS isborderline. Normal right ventricular systolic function. Mild enlargement of rightventricle. There is mild enlargement of left atrium. Mitral valve leaflets appear mildly thickened. Mild mitral valveregurgitation. Mild aortic stenosis. Peak Velocity of 2.42 m/s. Peak gradient of 23.0mmHg. Mean gradient of 13.0 mmHg. Valve area of 1.5 cm2. Aortic cusps appearmoderately calcified. Mild tricuspid regurgitation. Moderate pulmonic regurgitation. Sinus of Valsalva is dilated. Sinus of Valsalva 4.5 cm. Normal sinus rhythm. Electronically Signed By: Jillian Fall MD 03/03/2025 5:00:24 PM CDT Jillian Fall MD CV ECHO PROCEDURES Final Result from Last 3 Months Insurance MEDICARE [facility] MEDICARE [facility] MEDICARE [facility] [place] Advance Directives For more information, please contact: [phone] Documents on File Type Date Recorded Patient Sign Builder Supervisor Expl anation ADVANCE DIRECTIVE 04/01/2025 5:18 AM POWER OF REFINERY OPERATOR [employer] Power of Cutting And Printing Machine Operator 03/27/2025 12:08 AM Power of Cutting And Printing Machine Operator 02/01/2024 10:38 AM * Full Code (Latest Code Status on File) Date Activated Date Inactivated Comments 03/24/2025 6:40 PM 03/30/2025 8:40 PM * Full Code Date Activated Date Inactivated Comments 02/01/2024 8:05 PM 02/02/2024 7:31 PM Care Teams Railway Signal Electrician Relationship Specialty Start Date End Date Clem Curry MD [address] [place] [address] PCP - General Family Medicine 09/29/18 Diaz [place] [address] [place] [address] Consulting Physician Urology 02/02/24 Jillian Fall MD [address] [facility] [address] [place] [address] Referring Physician Cardiology 03/03/25
--- OUTSIDE RECORDS SUMMARY | 2025-05-15 14:34 | XMS_ITS | Clinical Summary ---
Author Organization [facility] Address [address] [place] [address] Care Team Providers Care Nail Galvanizer Name Role Phone Clem Curry MD Primary Care Provider [phone] Source Comments [facility],non-owned Affiliates and Associated Physician Practices is amultiple site organization consisting of ambulatory clinics and hospital sitesin [place], [place], [place] and [place]. This disclosure is being madepursuant to the Care Everywhere program and may not contain all information available regarding this patient. Last updated 18.[facility] Allergies No known active allergies Medications * [...] ZOSTER VACCINE (2 of 3) 05/23/2014 03/28/2014 DEPRESSION SCREENING 08/24/2024 COVID-19 VACCINE (2 - season) 2025 10/02/2020 INFLUENZA VACCINE (#1) 2025 , 06/29/2018, 07/14/2017, Additional history exists Respiratory Syncytial [...] a test for HCV RNA (test code 05454) is suggested. For additional information please refer to http://education.2Catalyze/faq/ESL36d8 (This link is being provided for informational/ educational purposes only.) REPORT COMMENT: FASTING:YES Test Performed at: [facility] [address] [place] [address] ANATOLIY BRAGG DO,MPH Blood BLOOD SPECIMEN / Unknown 11/08/2020 9:21 AM CDT 11/08/2020 9:26 AM CDT Jsoh Mckeon MD LAB - CHEMISTRY ORDERABLES F inal Result [facility] [address] [place] [address] from Last 3 Months or Most Recently Relevant to Health Maintenance Insurance MEDICARE T Care Teams Nail Galvanizer Relationship Specialty Start Date End Date Clem Curry MD [address] [place] [address] PCP - General 01/18/20
--- OUTSIDE RECORDS SUMMARY | 2025-05-15 14:34 | XMS_ITS | Encounter Summary ---
Author Organization [facility] Address [address] [place] [address] Care Team Providers Care Trench Shovel Operator Name Role Phone Carlos Baumann MD Primary Care Provider Clem Curry MD Primary Care Provider Diaz Ramírez MD Unavailable [phone] Eugenio Fall MD Unavailable [phone] Encounter Details Date Type Department Care Team (Late st Contact Info) Description 01/06/2017 Orders Only [facility] ProviderTaylor MD [address] [place] [id number] Social History Tobacco Use Types Packs/Day Years Used Date Smoking Tobacco: Never Alcohol Use Standard Drinks/Week Comments Yes 0 (1 standard drink = 0.6 oz pur e alcohol) Sex and Gender Information Value Date Recorded Sex Assigned at Not on file Legal 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
--- OUTSIDE RECORDS SUMMARY | 2025-05-15 14:35 | XMS_ITS | Encounter Summary ---
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 Name Role Phone Clem Curry MD Primary Care Provider Diaz Ramírez MD Unavailable [phone] Eugenio Fall MD Unavailable Encounter Details Date Type Department Care Team (Late st Contact Info) Description 08/26/2024 Orders Only [facility] Health Information Management [address] [place] [address] Scanning, Provider Social History Tobacco Use Types Packs/Day Years Used Date Smoking Tobacco: Never Smokeless Tobacco: Never Alcohol Use Standard Drinks/Week Comments Yes 2 [...] on file 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 Gender Identity Not on file Sexual Orientation Not on file documented as of this encounter Plan of Treatment Not on file documented as of this encounter Procedures Procedure Name Priority Date/Time Associated Diagnosis Comments SCAN - RADIOLOGY/IMAGING 08/26/2024 documented in this encounter Results * SCAN - RADIOLOGY/IMAGING (08/26/2024) Anatomical Region Laterality Modality Other us Provider Scanning Final Result documented in this encounter Visit Diagnoses Not on filedocumented in this encounter Care Teams Unmanned Aircraft Systems Roboticist Relationship Specialty Start Date End Date Clem Curry MD [address] [place] [address] PCP - General Family Medicine 09/29/18 Diaz Ramírez [place] [address] [place] [address] Consulting Physician Urology 02/02/24 Eugenio Fall MD [address] [facility] [address] [place] [address] Referring Physician Cardiology 03/03/25 documented as of this encounter
[2025-05-15 15:56] LABS: Hematocrit 41.4 % (42.0-52.0); Hemoglobin 13.9 g/dL (14.0-18.0); Immature Granulocyte Percent A 0.8 % (0-0.5); Lymphocytes Absolute Auto 1.07 K/mm3 (0.9-3.2); Mean Corpuscular HGB Conc 33.6 g/dl (32-36); Mean Corpuscular Hemoglobin 31.5 pg (26-34); Mean Corpuscular Volume 93.9 fl (80-100); Nucleated Red Blood Cells Absolute Auto 0.000 K/mm3 (0.0-0.012); Nucleated Red Blood Cells Perc 0.0 % (0.0-0.2); Platelet Count Result 204 k/mm3 (150-375); Red Blood Count 4.41 M/mm3 (4.6-6.20); White Blood Count 8.9 K/mm3 (4.5-10.0)
[2025-05-15 16:05] LABS: Alanine Aminotransferase 39 U/L (6-50); Albumin Level 4.5 g/dL (3.5-5.1); Alkaline Phosphatase 82 U/L (38-126); Anion Gap 8 mmol/L (4-12); Aspartate Amino Transferase 33 U/L (17-59); Bilirubin,Total 0.6 mg/dL (0.2-1.3); Blood Urea Nitrogen 20 mg/dL (9-20); Calcium 8.8 mg/dL (8.4-10.2); Carbon Dioxide 28 mmol/L (22-30); Chloride 101 mmol/L (98-107); Estimated Glomerular Filt Rate > 60; Glucose 103 mg/dL (65-110); Potassium 3.4 mmol/L (3.4-5.0); Sodium 137 mmol/L (137-145); Total Protein 7.9 g/dL (6.3-8.2)
== END 2025-05-15 14:32 | disposition home or self-care (01) ==
PROVIDERS: PCP Family Medicine; Visit Provider Family Medicine
DX: I82.402 Acute embolism and thrombosis of unspecified deep veins of left lower extremity (principal); I10 Essential (primary) hypertension
CPT/HCPCS: 36415; 80053; 85025; 93970

== ENCOUNTER 2025-07-13 16:15 | Outpatient (RCR) | payer MEDICARE, OTHER, SELFPAY | END 2025-08-14 16:42 | disposition home or self-care (01) | LOC: ANHCPREHAB 16:15 | PROVIDERS: PCP Family Medicine; Visit Provider Internal Medicine Cardiovascular Disease | DX: Z95.1 Presence of aortocoronary bypass graft (principal) | CPT/HCPCS: 93798 ==